=== PATIENT | female | born 1960 | race Caucasian/White ===

== ENCOUNTER 2018-10-27 22:32 | Inpatient (IN) ==
[2018-10-28] MEDS ORDERED: NS 1,000 ML IV ONE ×2 (00:12→01:54)
[2018-10-28 01:27] LABS: BASO# 0.03 X1000 (0.0-0.2); BASO% 0.2 % (0.0-0.8); EOS# 0.18 X1000 (0.0-0.7); EOS% 1.2 % (0.0-10.0); HEMATOCRIT 41.5 % (37.0-47.0); HEMOGLOBIN 12.9 g/dL (12.0-16.0); LYMPH# 2.53 X1000 (1.2-3.4); LYMPH% 16.8 % (20.5-51.1); MCH 29.5 PG (27-31); MCHC 31.1 g/dL (33-37); MPV 11.2 FL (7.4-10.4); NEUT# 11.11 X1000 (1.4-6.5); NEUT% 73.8 % (42.2-75.2); PLT 305 X1000 (130-400); RBC 4.37 XMIL (4.2-5.4); RDW 14.7 % (11.5-14.5); WBC 15.05 X1000 (4.8-10.8)
[2018-10-28 01:32] LABS: ALB/GLOB RATIO 0.7; ALBUMIN 3.4 g/dL (3.5-5.0); CALCIUM 9.2 mg/dL (8.8-10.2); CREATININE 1.7 mg/dL (0.5-0.9); POTASSIUM 4.7 mmol/L (3.5-5.1); TOTAL BILIRUBIN 0.47 mg/dL (0.20-1.00); TOTAL PROTEIN 8.3 g/dL (6.3-8.3)
[2018-10-28 02:47] LABS: BILIRUBIN URINE SMALL (NEGATIVE); BLOOD URINE LARGE (NEGATIVE); CLARITY CLOUDY (CLEAR); COLOR YELLOW; GLUCOSE URINE NEGATIVE (NEGATIVE); KETONE URINE TRACE mg/dL (NEGATIVE); LEUKOCYTES URINE MODERATE (NEGATIVE); NITRITE URINE NEGATIVE (NEGATIVE); PH URINE 5.5; PROTEIN URINE 100 mg/dL (NEGATIVE); SP GRAVITY URINE >= 1.030; URINE SOURCE CATH; UROBILINOGEN URINE 0.2 EU/dL (0.2-1.0)
[2018-10-28] MEDS ORDERED: VANCOMYCIN 1 GM/NS 1 GM/250 ML IVPB IV ONE (02:59)
[2018-10-28] MEDS ORDERED: ROCEPHIN 1 GM in NS 50 ML IV ONE (02:59)
[2018-10-28] MEDS ORDERED: LEVOPHED 8 MG in D5 1/2 NS 250 ML IV SCH (03:00)
[2018-10-28 03:30] LABS: URINE BACTERIA 2+ /HFP; URINE EPITHELIAL CELLS <10 /HPF (<10); URINE RBC 20-40 /HPF (<10); URINE WBC TNTC /HPF (<10); URINE YEAST PRESENT /HPF
[2018-10-28 03:31] LABS: URINE CAST NONE SEEN /LPF; URINE CRYSTAL NONE SEEN /HPF
[2018-10-28] MEDS: EPINEPHRINE 4 MG in NS 250 ML IV SCH ×4 (04:59→16:24)
[2018-10-28] MEDS ORDERED: ATIVAN IV ONE ×3 (05:14→10:00)
[2018-10-28] MEDS ORDERED: KEPPRA 500 MG in NS 100 ML IV SCH (06:00)
--- NOTE | 2018-10-28 07:08 | PROVIDER DOCUMENTATION ---
This chart was entered by Brittany Downing Scribe, acting as scribe for Shaquille Harris MD. HPI-Neurological Disorder - General Chief Complaint: Extremity Pain Stated Complaint: ams Time Seen by Provider: 10/27/18 23:09 Source: patient Allergies/Adverse Reactions: Patient Allergies Allergy/AdvReac Type Severity Reaction Status Date / Time Penicillins Allergy Intermediate HIVES Verified 10/27/18 23:09 codeine [Codeine] Allergy Unknown Unknown Verified 10/27/18 23:09 tetracycline [Tetracycline] Allergy Unknown Unknown Verified 10/27/18 23:09 latex Allergy ITCHING Verified 10/27/18 23:09 meperidine HCl * Allergy ITCHING Verified 10/27/18 23:09 [From Demerol] Home Medications: Home Medication List Medication Instructions Recorded Confirmed Last Taken Type Baclofen 20 mg PO 4XDAY 09/12/12 08/30/18 04/21/15 18:00 History 20 MG Esomeprazole [Nexium] 40 mg PO DAILY 09/12/12 08/30/18 04/21/15 06:00 History 40 MG Metformin [Glucophage] 500 mg PO BID 09/12/12 08/30/18 04/21/15 09:00 History 500 MG Oxybutynin Chloride [Ditropan Xl] 15 mg PO BID 09/12/12 08/30/18 04/21/15 08:00 History 15 MG Levetiracetam [Keppra] 500 mg PO BID 09/17/14 08/30/18 04/21/15 10:00 History 500 MG Glimepiride [Amaryl] 2 mg PO BID 10/09/14 08/30/18 04/21/15 10:00 History 2 MG Metoprolol Succinate E.r. [Toprol 50 mg PO DAILY 10/09/14 08/30/18 04/21/15 09: 00 History Xl] 50 MG Losartan [Cozaar] 25 mg PO DAILY 04/22/15 08/30/18 04/21/15 09:00 History 50 MG Furosemide [Lasix] 40 mg PO DAILY 08/30/18 08/30/18 Unknown History Ropinirole [Requip] 0.5 mg PO TID 08/30/18 08/30/18 Unknown History - History of Present Illness-Neuro Nature of Presenting Problem: 57yof with hx MS, diabetes, HTN presents via EMS with AMS and infection of RLE since this evening. The patient's mother acts as historian. She denies that the patient has any PCP. She denies fever, chills, n, v, d, cp, and sob. Severity: reports: mild Onset/Duration: reports: this evening Timing: reports: still present Context: reports: recent infection (RLE) Character of Altered Mental Status: reports: combative, other (somnolent) Associated Symptoms: denies: short of breath, fatigue, nausea, vomiting Similar Symptoms Previously?: No Recently seen or treated by another doctor?: No Review of Systems - Adult - REVIEW OF SYSTEMS - ADULT Constitutional: denies: chills, fever Eyes: denies: discharge, dry eyes Ears, Nose, Mouth & Throat: denies: ear discharge, ear pain Cardiovascular: denies: chest pain, palpitations Respiratory: denies: cough, shortness of breath Gastrointestinal: denies: abdominal pain, diarrhea, nausea, vomiting Genitourinary: denies: dysuria, hematuria Musculoskeletal: denies: back pain, muscle aches, muscle weakness Integumentary: reports: other (RLE infection). denies: itching Neurological: reports: other (AMS). denies: dizziness/vertigo, headache/ migraines Psychiatric: reports: no symptoms reported Endocrine: reports: no symptoms reported Hematologic/Lymphatic: reports: no symptoms reported Allergic/Immunologic: reports: no symptoms reported All Other Systems: Reviewed and Negative Past History - Adult - PAST MEDICAL HISTORY-ADULT Review of Records: reports: Old Records Reviewed, Nursing Assessment Review, Medications Reviewed Major Childhood Illnesses: reports: denies history Cardiovascular: reports: HTN Respiratory: reports: denies history Gastrointestinal: reports: GERD Obstetrical/Gynecological: reports: denies history Genitourinary: reports: denies history Musculoskeletal: reports: denies history Neurological: reports: Multiple Sclerosis (paraplegic with contractures) Endocrine/Immune: reports: Diabetes Other Conditions: reports: denies history - PRIOR SURGERIES/PROCEDURES Surgical/Procedure History: reports: cholecystectomy, hysterectomy, indwelling device (supapubic cath), tonsillectomy, orthopedic (extremity) (leg straightening due to chronic contractures secondary to MS) - IMMUNIZATION STATUS Childhood Immunizations: See Nurse Assessment Flu Vaccine: See Nurse Assessment - FAMILY HISTORY Family History: reviewed, not pertinent - SOCIAL HISTORY Smoking: non-smoker Substance Use: denies Living Situation: family Physical Exam- Neurological - Physical Exam-Neuro Initial Vital Signs Reviewed: Yes General Appearance: other (somnolent, pt is non-verbal during exam) Eye Exam: bilateral eye: PERRL Head Injury: no evidence of injury. negative: active bleeding, Wu's Sign, ecchymosis, swelling Neck: non-tender, supple Respiratory: lungs clear, normal breath sounds Cardiovascular: regular rate, rhythm, no murmur Abdominal Exam: non tender, soft Extremity: other (R heel: two ulcers, 3cm and .6cm, erythema, warm. R calf: cellulitis, erythema, warm LLE: cool to touch) Neurologic: other (pt is non-verbal) Integumentary: normal color, warm/dry Psych/Mental Status: other (pt is nonverbal) Progress - PLAN OF CARE/RESULTS Progress/Plan/Lab Results: Vital Signs - 8 hr 10/27/18 23:34 10/28/18 01:41 10/28/18 05:25 Pulse Rate 96 H 103 H Respiratory Rate 20 Blood Pressure 56/31 105/65 89/67 O2 Sat by Pulse Oximetry 91 L Laboratory Results - last 24 hr 10/28/18 10/28/18 10/28/18 00:15 00:31 00:31 WBC RBC Hgb Hct MCV MCH MCHC RDW Std Deviation Plt Count MPV Neut % (Auto) Lymph % (Auto) [place] % (Auto) Eos % (Auto) Baso % (Auto) Neut # (Auto) Lymph # (Auto) [place] # (Auto) Eos # (Auto) Baso # (Auto) Sodium 138 Potassium 4.7 Chloride 95 L Carbon Dioxide 24 L Anion Gap 19 BUN 49 H Creatinine 1.7 H Estimated GFR/1.73 m2 31 BUN/Creatinine Ratio 29 Glucose 214 H POC Glucose 213 H Calculated Osmolality 295 Calcium 9.2 Magnesium 1.8 Total Bilirubin 0.47 AST 24 ALT 23 Alkaline Phosphatase 194 H Troponin T Total Protein 8.3 Albumin 3.4 L Globulin 4.9 Albumin/Globulin Ratio 0.7 Plasma Lactate Urine Source Urine Color Urine Clarity Urine Turbidity Urine pH Ur Specific [place] Urine Protein Ur Glucose (Stick) Urine Ketones Ur Ketones (Stick) Urine Blood Urine Nitrite Urine Bilirubin Urine Urobilinogen Urobilinogen Dipstick Urine Leukocytes Urine WBC (Auto) Urine RBC (Auto) U Epithel Cells (Auto) Urine Bacteria (Auto) Urine Microscopic RBC Urine WBC Urine Microscopic WBC Ur Epithelial Cells Urine Crystals Urine Bacteria Urine Casts Urine Yeast Urine Glucose 10/28/18 10/28/18 10/28/18 00:31 00:31 00:45 WBC 15.05 H RBC 4.37 Hgb 12.9 Hct 41.5 MCV 95.0 MCH 29.5 MCHC 31.1 L RDW Std Deviation 14.7 H Plt Count 305 MPV 11.2 H Neut % (Auto) 73.8 Lymph % (Auto) 16.8 L [place] % (Auto) 8.0 Eos % (Auto) 1.2 Baso % (Auto) 0.2 Neut # (Auto) 11.11 H Lymph # (Auto) 2.53 [place] # (Auto) 1.20 H Eos # (Auto) 0.18 Baso # (Auto) 0.03 Sodium Potassium Chloride Carbon Dioxide Anion Gap BUN Creatinine Estimated GFR/1.73 m2 BUN/Creatinine Ratio Glucose POC Glucose Calculated Osmolality Calcium Magnesium Total Bilirubin AST ALT Alkaline Phosphatase Troponin T Total Protein Albumin Globulin Albumin/Globulin Ratio Plasma Lactate Urine Source Cancelled CATH Urine Color Cancelled YELLOW Urine Clarity CLOUDY A Urine Turbidity Cancelled Urine pH Cancelled 5.5 Ur Specific [place] Cancelled >= 1.030 Urine Protein Cancelled 100 A Ur Glucose (Stick) Cancelled Urine Ketones TRACE A Ur Ketones (Stick) Cancelled Urine Blood Cancelled LARGE A Urine Nitrite Cancelled NEGATIVE Urine Bilirubin Cancelled SMALL A Urine Urobilinogen 0.2 Urobilinogen Dipstick Cancelled Urine Leukocytes Cancelled Urine WBC (Auto) Cancelled Urine RBC (Auto) Cancelled U Epithel Cells (Auto) Cancelled Urine Bacteria (Auto) Cancelled Urine Microscopic RBC 20-40 A Urine WBC MODERATE A Urine Microscopic WBC TNTC A Ur Epithelial Cells <10 Urine Crystals NONE SEEN Urine Bacteria 2+ Urine Casts NONE SEEN Urine Yeast PRESENT Urine Glucose NEGATIVE 10/28/18 10/28/18 00:45 02:53 WBC RBC Hgb Hct MCV MCH MCHC RDW Std Deviation Plt Count MPV Neut % (Auto) Lymph % (Auto) [place] % (Auto) Eos % (Auto) Baso % (Auto) Neut # (Auto) Lymph # (Auto) [place] # (Auto) Eos # (Auto) Baso # (Auto) Sodium Potassium Chloride Carbon Dioxide Anion Gap BUN Creatinine Estimated GFR/1.73 m2 BUN/Creatinine Ratio Glucose POC Glucose Calculated Osmolality Calcium Magnesium Total Bilirubin AST ALT Alkaline Phosphatase Troponin T 0.033 Total Protein Albumin Globulin Albumin/Globulin Ratio Plasma Lactate 1.4 Urine Source Urine Color Urine Clarity Urine Turbidity Urine pH Ur Specific [place] Urine Protein Ur Glucose (Stick) Urine Ketones Ur Ketones (Stick) Urine Blood Urine Nitrite Urine Bilirubin Urine Urobilinogen Urobilinogen Dipstick Urine Leukocytes Urine WBC (Auto) Urine RBC (Auto) U Epithel Cells (Auto) Urine Bacteria (Auto) Urine Microscopic RBC Urine WBC Urine Microscopic WBC Ur Epithelial Cells Urine Crystals Urine Bacteria Urine Casts Urine Yeast Urine Glucose Orders Category Date Time Status Hagen Cath Insertion ORDERED Care 10/28/18 00:20 Active Restraint Initiate NonViolent ONCE Care 10/28/18 00:14 Active Restraint Initiate NonViolent ONCE Care 10/28/18 05:15 Active Saline Loc NOW Care 10/28/18 00:14 Active Saline Loc NOW Care 10/28/18 00:16 Active CHEST-PORTABLE [RAD] Stat Exams 10/28/18 00:19 Taken BLOOD CULTURE [BLDCUL] Stat Lab 10/28/18 03:00 Results CBC WITH ELECTRONIC DIFF [HEME] Stat Lab 10/28/18 00:45 Completed COMPREHENSIVE METABOLIC PANEL [CHEM] Stat Lab 10/28/18 00:31 Completed LACTATE, PLASMA [CHEM] Stat Lab 10/28/18 02:53 Completed MAGNESIUM [CHEM] Stat Lab 10/28/18 00:31 Completed TROPONIN T Stat Lab 10/28/18 00:45 Completed URINE CULTURE [RM] Routine Lab 10/28/18 03:02 Received 0.9% Sodium Chloride Inj [Ns] 1,000 ml Med 10/28/18 00:12 Discontinued IV 999 mls/hr 0.9% Sodium Chloride Inj [Ns] 1,000 ml Med 10/28/18 01:54 Discontinued IV 999 mls/hr 0.9% Sodium Chloride Inj [Ns] 250 ml Med 10/28/18 05:00 Active Epinephrine 4 mg IV As Directed CefTRIAXONE [Rocephin] 1 gm Med 10/28/18 02:59 Discontinued 0.9% Sodium Chloride Inj [Ns] 50 ml IV NOW Dextrose 5%-0.45% NaCl Inj [D5 1/2 Ns] 250 ml Med 10/28/18 03:00 Active Norepinephrine [Levophed] 8 mg IV As Directed Levetiracetam [Keppra] 500 mg Med 10/28/18 06:00 Active 0.9% Sodium Chloride Inj [Ns] 100 ml IV Q12H Lorazepam [Ativan] Med 10/28/18 05:14 Discontinued 0.5 mg IV NOW ONE Lorazepam [Ativan] Med 10/28/18 05:31 Discontinued 0.5 mg IV NOW ONE Vancomycin 1 gm/Ns Med 10/28/18 02:59 Discontinued 1 gm in 250 ml IV NOW Transfer/Admit Order [TRANSFER] Routine Transfer 10/28/18 04:38 Ordered Result Diagrams: 10/28/18 00:45 10/28/18 00:31 - REASSESSMENT Reassessment #1 Time Reassessed: 04:42 Status: other (2 LITERS IVF IN AND NOREPI GTT STARTED 04;12 BP IPMPROVED BUT SINUS EM DOWN TO 32/MIN, NOREPI STOPPED AND HR BACK TO 60/MIN) Reassessment #2 Time Reassessed: 04:46 Status: unchanged (RES;PONSIVE TO PAIN, NEDS HEAD CT BUT NOT YET HEMODYN STABLE ENOUGH TO SEND TO CT) - XRAY 1 XRAY Study: Chest Impression: Normal (NAD) - CONSULTS/PCP/HOSPITALIST Notification #1 *Consult/PCP/Hospitalist*: DR MOTA Time Discussed: 04:40 Reason/Comments: ICU, SEPSIS Consult Disposition: Admit Departure - Departure Date of Disposition Decision: 10/28/18 Time of Disposition Decision: 05:23 DIAGNOSIS: Sepsis, Altered mental status, Hypotension, Urinary tract infection, Leukocytosis, Cellulitis and abscess of foot excluding toe Disposition: ADMITTED INPATIENT 09 Certified Medical Emergency: Emergent Condition: Stable - Critical Care Note This patient required my direct & personal management of CC.: Yes Total Time (mins): 85 Critical Care Statement: This patient required my direct personal management to treat or rule out processes, the absence of which, could potentiallly result in sudden, clinically significant life or limb threatening deterioration. Attestation - Physician/ JOCE Attestation Patient care was provided by Advanced Practice Provider:: No The physician spent face to face time with patient:: Yes Advanced Practice Provider documentation review:: Supervising physician onsite and consulted in the evaluation and care of this patient. The physician did have a face to face encounter with the patient. - NIH Stroke Scale Level of Consciousness: 2-Stuporous, requires repeat stimulation to attend LOC Questions (ask month and age): 2-Both Incorrect LOC Commands (ask to open & close eyes;make a fist, let go): 2-Both Incorrect ( JSUT TOO DISORIENTED AND LETHARGIC TO COMMUNICATE OR OBEY TEST COMMANDS, ALSO , CHRONIC WEAKNESS LEGS DUE MS) Motor Function-left arm: 0-Normal Motor Function-right arm: 0-Normal Motor Function-left le-No Effort Against [place] Motor Function-right le-No Effort Against [place] Limb Ataxia([id number], or heel to alvarado): 2-Present in two limbs Modified Waller Score Criteria: 4-moderately severe disability This chart was documented by the indicated scribe, (Brittany Downing, Scribe) and accurately reflects the services I performed and decisions made by me, Shaquille Harris MD, as attested by the provider's signature.
--- NOTE | 2018-10-28 07:11 | HISTORY AND PHYSICAL ---
PRIMARY CARE PHYSICIAN: None. REASON FOR ADMISSION: Confusion and subsequent unconsciousness. HISTORY: Ms. Arianna Brown is a 57-year-old woman who was discharged from our facility about a month ago for Escherichia coli sepsis from a UTI. She also has a history of multiple visits with paralysis as well as contractures of the lower extremities, seizure disorder, multiple decubitus on her lower extremities, hypertension, type 2 diabetes. The patient has been bedbound for the last two years and is cared for by her mother and home health. The mother reports that yesterday morning the patient was doing fine. Ate her breakfast. But she noticed over the course of the day she became very confused, making a lot of incoherent statements. The patient became less and less responsive and was drifting in-and-out of consciousness. At that juncture, she decided to bring her daughter because she was concerned she may be infected. REVIEW OF SYSTEMS: I am unable to get a history from the patient, even though I had to awaken with sternal rub. She does not recognize her mother. She is unable to answer any questions, even from her mother. Otherwise review of systems is very limited. The mother denies any cough, shortness of breath, fever, chills, or complaints of abdominal pain or pain from the patient. She does have a history of chronic lower extremity pain according to the mother. ALLERGIES: Penicillin, codeine, tetracycline, latex and Demerol. HOME MEDICATIONS: Yet to be reconciled, but on her list we have: 1. Baclofen. 2. Nexium. 3. Lasix. 4. Amaryl. 5. Keppra. 6. Losartan. 7. Metformin. 8. Toprol. 9. Oxybutynin. 10.Requip. PAST SURGICAL HISTORY: Cholecystectomy, hysterectomy, tonsillectomy and placement of a suprapubic catheter. FAMILY HISTORY: Dad had diabetes and heart disease. SOCIAL HISTORY: Lives with her mother. She is bedbound. She does not smoke, drink, or use illicit drugs. Mother says she is having a hard time caring for her too. LAB WORK: White count 15.0, hemoglobin and hematocrit are 13 and 41, platelets 305,000 with 73% neutrophils. BUN 49, creatinine 1.7 (up from 0.5), glucose 214. Alkaline phosphatase 194. Urine drug screen shows specific gravity of 1.030, cloudy urine, large blood too numerous to count WBC, 2+ bacteria. IMAGING: Chest film is devoid of any infiltrate, increased pulmonary edema. Borderline cardiac silhouette. EXAMINATION: VITAL SIGNS: Blood pressure is 89/67, heart rate 102, respirations 20, temperature 97.0 degrees Fahrenheit. She is 91% on room air. GENERAL: She is an unfortunate overweight, middle-age woman who is now awake but agitated, requiring some restraints because she was about to pull out her IV. She is moaning and intermittently screaming. Earlier when her name was called, she would turn her head in that direction. Now she is not even following commands. HEENT: Head is normocephalic and atraumatic. Eyes: PERRL. EOMI. Sclerae anicteric and pale. ENT: Limited. She has noticeable moderate xerostomias of sinuses. NECK: Short and thick. No JVD visualized. No thyromegaly noted. CHEST: Decreased function of both lung valerio. CARDIOVASCULAR: S1, S2. No gallop or rub. It is regular. ABDOMEN: Protuberant but soft with no mass or hepatosplenomegaly appreciated. Bowel sounds are hyperactive. There is a suprapubic catheter in place. No surrounding erythema or exudates emitting from the ostomy site. RECTAL: Deferred. EXTREMITIES: The patient has contractions of both her knees. She also has some [id number] erythema on the plantar surface and heel of her right foot. Stage II decubitus of her heel. The heel does not appear to be warmer than surrounding tissue. No crepitations or induration of the texture of her skin. Pulses distally in her lower extremities are significantly diminished bilaterally. In her upper extremities, the volume is significantly diminished, rapid rate. NEUROLOGIC: The patient does not follow commands, but she is moving her upper extremities with no gross evidence of focal deficit. SKIN: Intact but also abnormal findings are noted as above. MUSCULOSKELETAL: The patient has hypertonicity of her lower extremities. IMPRESSION: 1. Urinary tract infection. 2. Septic shock. 3. Encephalopathy secondary to acute kidney injury and underlying urinary tract infection. 4. Acute kidney injury. 5. Type 2 diabetes. 6. Hypertension. 7. Multiple sclerosis. 8. Epilepsy. 9. Stage II right heel ulcers with possible early cellulitis. PLAN: 1. The patient will be admitted and treated appropriately with 30 mL/kg IV fluid resuscitation. This will be continued when she is transferred to the ICU. 2. The patient's lactic acid was 1.4, however clinically this patient is in shock regardless. 3. We will start the patient on Maxipime to cover for broader coverage of Gram-negative i.e., pseudomonas. 4. Vancomycin was also started for presumptive cellulitis of the right foot. 5. The patient will have BMP monitored closely on a daily basis with IV fluid resuscitation for correction of this. 6. She will be aggressively managed with sliding-scale insulin. 7. Await final medication reconciliation sheet before proceeding. 8. The patient may require p.r.n. Ativan for agitation and also to raise the patient's seizure threshold. Start IV Keppra so as to avoid any unexpected seizure. 9. The patient is also currently on epinephrine to maintain blood pressure. Oddly enough, I was informed that when she was started on Levophed she became bradycardic which I have never heard of before but the nurse attest to this. The patient is still hypotensive, which at this point in time she is in, recommend a random cortisol level to rule out renal insufficiency. Infectious Diseases will be consulted and Wound Care also needs to be consulted regarding Stage II decubitus. cc: Garry Patel MD
[2018-10-28] MEDS ORDERED: ZOFRAN IV PRN (07:25)
[2018-10-28] MEDS ORDERED: VANCOMYCIN IV PER PHARMACY MISC SCH (07:25)
--- NOTE | 2018-10-28 07:29 | Diag Imaging Result Doc PS360 ---
EXAM: CHEST-PORTABLE 10/28/2018 HISTORY: septic? TECHNIQUE: AP portable at 0042 COMMENT: There is suboptimal inspiration with elevation of the right hemidiaphragm. This has not changed since 09/02/2018. There is otherwise no significant change. IMPRESSION: Stable chest. Electronically signed by Elia Mills 10/28/2018 7:27 AM
[2018-10-28] MEDS ORDERED: VANCOMYCIN 1,500 MG in NS 250 ML IV ONE (09:00)
--- NOTE | 2018-10-28 09:06 | EKG Report ---
Test Performed on : 10/28/2018 04:18:42 AM Test Reason : NO EKG ORDER FOR MUSE Blood Pressure : / mmHG Vent. Rate : 074 BPM Atrial Rate : 074 BPM P-R Int : 194 ms QRS Dur : 072 ms QT Int : 428 ms P-R-T Axes : 063 004 024 degrees QTc Int : 475 ms Normal sinus rhythm. Nonspecific T wave abnormality Prolonged QT Abnormal ECG When compared with ECG of 30-AUG-2018 06:39, T wave inversion no longer evident in Inferior leads Nonspecific T wave abnormality no longer evident in Anterior leads Nonspecific T wave abnormality, worse in Lateral leads Unconfirmed Result
[2018-10-28] MEDS: HEPARIN SUBQ SCH ×2 (09:10→21:11)
[2018-10-28] MEDS: NS 1,000 ML IV SCH ×4 (09:10→23:13)
[2018-10-28] MEDS: MAXIPIME 1 GM in NS 50 ML IV SCH ×2 (09:11→21:11)
[2018-10-28] MEDS ORDERED: ATIVAN ONE (10:08)
[2018-10-28] MEDS: HUMALOG SUBQ SCH ×4 (10:27→21:11)
[2018-10-28] MEDS: CUBICIN 350 MG in NS 100 ML IV SCH (10:30)
--- NOTE | 2018-10-28 10:55 | INFECTIOUS DISEASE CONSULT REP ---
DATE: 10/28/2018 CONCLUSION: The patient is admitted to the hospital in a septic condition. I think this could arise from a urinary tract infection or possibly from one of the patient's wounds on her legs. The chest x-ray does not show any infiltrates so I think pneumonia would be very unlikely. The patient also has an ischemic left leg. RECOMMENDATIONS: I agree with treating the patient with cefepime. I have discontinued vancomycin and I have placed the patient on daptomycin. I have asked Dr. Santos of surgery to put in an IV catheter and also, I have consulted him on the patient's ischemic left leg. DISCUSSION: The patient is unable to provide a history. No family member is present. According to the data in the computer, the patient was admitted to the hospital with confusion and subsequent unconsciousness. The patient was recently in [facility] for E. coli sepsis and a urinary tract infection. The patient has a history of paralysis as well as contractures of the lower extremities. She also has a seizure disorder, multiple decubitus ulcers on her legs, hypertension, and type 2 diabetes. She has been bedbound for the past 2 years and cared for by her mother at home. The patient's laboratory studies show a CBC with a white count of 15,050, hemoglobin 12.9, platelet count 305,000. Creatinine is 1.7. GFR is 31. Liver function studies are normal except for an alkaline phosphatase of 194. Urinalysis shows white cells and bacteria. Blood and urine cultures are pending. Chest x-ray showed an elevated right hemidiaphragm which has been present for quite awhile. PAST MEDICAL HISTORY AND REVIEW OF SYSTEMS: Review of systems unable to be obtained. Past medical history is positive for leg paralysis and contractures, seizure disorder, multiple decubitus ulcers in her lower extremities, hypertension, and type 2 diabetes. PAST SURGICAL HISTORY: The patient's surgical history is positive for his a cholecystectomy, hysterectomy, tonsillectomy, and placement of a suprapubic catheter. FAMILY HISTORY: Positive for diabetes and heart disease. SOCIAL HISTORY: The patient lives with her mother. The patient is bedbound. She does not smoke, drink alcoholic beverages, or use illicit drugs. LABORATORY AND X-RAY: Lab work and radiographic studies have been reviewed as above. ALLERGIES: The patient's drug allergies include penicillins, codeine, tetracyclines, latex, meperidine. HOME MEDICATIONS: Include the following: Baclofen, Nexium, Lasix, Amaryl, Keppra, Cozaar, Glucophage, Toprol, Ditropan, and Requip. PHYSICAL EXAMINATION: Vital Signs: Temperature is 98 degrees, pulse 86, respirations 9, blood pressure 103/60. General: This is an ill-appearing, middle-aged female. She is obtunded. Head, Eyes, Ears, Nose, and Throat: No drainage was noted from the nose or ears. Neck: No stiffness. Lungs: Clear to auscultation. Cardiovascular: Heart rate is regular. Abdomen: Soft and nontender. Pelvic Examination: In the suprapubic area, there is a suprapubic catheter. There is a sanguinopurulent drainage coming from the catheter site. Extremities: The patient has multiple decubitus ulcers on both extremities. There is some sanguinopurulent drainage from those wounds as well. The patient's left leg is cool and ischemic. Neurologic: The patient's eyes are closed. She did not respond to verbal stimuli. There was no tremor. Thank you for the consult. cc: Kyaw Bernabe MD
[2018-10-28] MEDS ORDERED: NS 250 ML ONE (11:14)
--- NOTE | 2018-10-28 11:19 | GENERAL SURGERY CONSULTATION ---
DATE: 10/28/2018 REQUESTING PHYSICIAN: Dr. Kyaw Bernabe. REASON FOR CONSULTATION: Consult is concerning central line access and ischemic left foot. HISTORY OF PRESENT ILLNESS: A 57-year-old female who was discharged a month ago from the facility with a urinary tract infection. 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 She has been bedbound for 2 years. The patient became more confused and unconscious, and subsequently was admitted. She was admitted and started on broad-spectrum antibiotics for the diagnosis of potential for sepsis, and them having a difficult time with patient being confused and agitated, and getting IV access. They asked me to evaluate for ischemic foot and IV access. It should be noted that the patient is on vasopressors with Levophed. PAST MEDICAL HISTORY: Paralysis, contractures, seizure disorder, multiple decubitus ulcers, hypertension, type 2 diabetes. PAST SURGICAL HISTORY: Includes cholecystectomy, hysterectomy, tonsillectomy, suprapubic catheter. HOME MEDICATIONS: Reviewed. ALLERGIES: Penicillin, codeine, tetracycline, latex, and Demerol. FAMILY HISTORY: Positive for diabetes and heart disease. SOCIAL HISTORY: Lives with mother and is bedbound. REVIEW OF SYSTEMS: Unable to obtain secondary to patient's mental status. SOCIAL HISTORY: As stated above. PHYSICAL EXAMINATION: Vital Signs: The patient's current temperature, she is afebrile. Pulse is 86, blood pressure 103/60. She is on pressors. General Examination: Agitated female. Looks stated age. HEENT: Normocephalic, atraumatic. Pupils equal, round, and reactive to light. Mucous membranes moist. Oropharynx benign. Neck: Supple. Trachea midline. Cardiovascular: Regular rate and rhythm. Lungs: Grossly clear. Abdomen: Soft, nontender, nondistended. Extremities: Left foot smaller than the right. There appears to be some ischemia noted to the distal aspect of her toes. She has multiple ulcers over both legs but more prominently the ulcers on the right leg and right foot. Neurologic: Confused and agitated. I can see her move all extremities. I do not see her move her feet that much. Vascular: Palpable femoral pulse on the right. I cannot palpate a femoral pulse on the left but she has a strong signal in her femoral pulse on the left and at her dorsalis pedis. Skin: As noted above. Neurologic: As stated. LABORATORY: White blood cell count is 15, hematocrit 41, platelet count 305,000. Remainder of labs reviewed. ASSESSMENT AND PLAN: A 57-year-old with ischemic left leg and difficult intravenous access. 1. Ischemic leg left leg. At this time, she does have a signal in her dorsalis pedis that is likely small-vessel disease. At this point, she is on pressors to maintain her blood pressure for likely sepsis, so I would agree with continuing resuscitation as possible. We will have to evaluate how her leg declares itself over the next couple of days. We will need to monitor her closely. 2. Intravenous access. At this time, attempted central line on the patient but she was so agitated that I could not get the wire through it. Given the fact that she is very agitated, we will recommend a peripherally inserted central catheter line placement. We will consult the peripherally inserted central catheter line team and go from there. cc: Anup Santos MD
[2018-10-28 11:20] LABS: INR 1.1; PROTIME 15.1 Seconds (11.0-16.0)
--- NOTE | 2018-10-28 11:38 | Diag Imaging Result Doc PS360 ---
EXAM: CHEST-PORTABLE 10/28/2018 HISTORY: attempted Right IJ central line placement TECHNIQUE: AP portable at 1056 COMMENT: There is no evidence of pneumothorax or pleural fluid collection. The inspiration is less optimal than on 10/28/2018 at 0042. There is some platelike atelectasis in the left base which was not previously present. IMPRESSION: Left lower lobe atelectasis. Electronically signed by Elia Mills 10/28/2018 11:36 AM
[2018-10-29] MEDS: EPINEPHRINE 4 MG in NS 250 ML IV SCH (05:30)
[2018-10-29] MEDS: NS 1,000 ML IV SCH ×4 (05:32→22:24)
[2018-10-29] MEDS ORDERED: ATIVAN IV ONE (05:36)
--- NOTE | 2018-10-29 06:32 | GENERAL SURGERY PROGRESS NOTE ---
DATE: 10/29/2018 SUBJECTIVE: Patient agitated through the night per the nurses notes. Ativan was given. The patient's epinephrine has been decreased. OBJECTIVE: Vital Signs: Patient is currently afebrile. Heart rates in the 120s, blood pressure 100 systolic. She is currently on epinephrine. O2 saturation 99%. General exam: Agitated female, does not follow commands. HEENT: Normocephalic, atraumatic. Pupils equal, round, reactive to light. Mucous membranes moist. Oropharynx benign. Neck: Supple, trachea midline. Cardiovascular: Some tachycardia. Lungs: Coarse sounds noted. Abdomen: Soft, nontender, nondistended. Extremities: Essentially unchanged with cyanosis noted to the left foot. Vascular still with perfusion noted to the left foot. Neurologic: Obtunded and agitated. LABORATORY: Currently pending. ASSESSMENT AND PLAN: A 57-year-old with possible ischemic left leg. 1. Ischemic left leg. At this time, we will continue to monitor. She seems to have perfusion to her dorsalis pedis to the foot and likely has small vessel disease which might be related to the vasopressors required to keep her blood pressure where it is. At this point, continue to monitor and see how she does. Nothing new to add. We will continue to follow her. cc: Anup Santos MD
[2018-10-29] MEDS: HUMALOG SUBQ SCH ×4 (07:18→20:17)
[2018-10-29] MEDS: MAXIPIME 1 GM in NS 50 ML IV SCH ×2 (07:38→20:08)
[2018-10-29] MEDS: HEPARIN SUBQ SCH ×2 (07:38→20:08)
--- NOTE | 2018-10-29 09:35 | INFECTIOUS DISEASE PROGRESS NO ---
DATE: 10/29/2018 PRESENT ILLNESS: The patient has multiple wounds on her legs which are infected. The wounds are growing gram-positive cocci. The patient also has a fungal urinary tract infection. Her chest x- ray shows atelectasis and not infiltrate and I think pneumonia is very unlikely. The patient's left leg also has ischemia of the foot. MEDICATIONS: The patient is receiving a combination of daptomycin and cefepime. PHYSICAL EXAMINATION: Vital Signs: Temperature is 97.2 degrees, pulse 120, respirations 20, blood pressure 141/73. General: This is an obese, middle-aged female. She appears delirious. Head/eyes/ears/nose/throat: Does not have any drainage from the nose or ears. I got a slight look at her mouth. I did not see any white patches on her tongue. Neck: No stiffness. Lungs: Clear to auscultation. Cardiovascular: Heart rate is regular. Abdomen: Soft and nontender. Extremities: Both legs are edematous and have erythematous ulcerating lesions distally. Neurologic: The patient does move around in bed. She does not answer questions. She does not follow request to move her extremities. LABORATORY AND X-RAY: Chest x-ray shows left lower lobe atelectasis. CBC has a white count of 15,050, hemoglobin 12.9, and platelet count 305,000. Creatinine is 1.7. GFR is 31. The patient's leg wounds are growing gram-positive cocci. The urine is urine is growing yeast. Blood cultures are pending. Chest x-ray shows left lower lobe atelectasis. Alkaline phosphatase is 194. ASSESSMENT AND PLAN: 1. The patient has infected wounds on her legs. She does have funguria, but I doubt that this is the cause of her septic condition. She does not have pneumonia. She does have funguria, but I doubt that the funguria is causing her septic-like condition. Chest x-ray shows left lower lobe atelectasis, which would make pneumonia very unlikely. 2. Comorbidities: She has a seizure disorder. She has upper leg paralysis and contractures. She also has diabetes. cc: Kyaw Bernabe MD
[2018-10-29 09:42] LABS: BASO# 0.02 X1000 (0.0-0.2); BASO% 0.1 % (0.0-0.8); EOS% 0.7 % (0.0-10.0); HEMATOCRIT 38.4 % (37.0-47.0); HEMOGLOBIN 11.7 g/dL (12.0-16.0); IMM GRAN# 0.05 X1000 (0.0-0.04); IMM GRAN% 0.4 % (0.0-0.5); LYMPH# 1.83 X1000 (1.2-3.4); LYMPH% 13.3 % (20.5-51.1); MCH 29.2 PG (27-31); MCHC 30.5 g/dL (33-37); MCV 95.8 FL (81-99); MONO# 0.97 X1000 (0.11-0.59); MPV 10.5 FL (7.4-10.4); NEUT% 78.5 % (42.2-75.2); PLT 295 X1000 (130-400); RBC 4.01 XMIL (4.2-5.4); RDW 14.5 % (11.5-14.5); WBC 13.77 X1000 (4.8-10.8)
--- NOTE | 2018-10-29 10:07 | PROGRESS NOTE ---
DATE: 10/29/2018 SUBJECTIVE: Ms. Brown was admitted yesterday; she has no primary care physician. This 57 year old was discharged from our facility about a month ago with E coli sepsis and UTI. She has a history of multiple visits with paralysis, as well as contractures, lower extremity seizure disorder, multiple decubitus in her lower extremities, hypertension, diabetes mellitus type 2. She has been bed-bound for 2 years and cared for by her mother and home health. The mother reports that the day before she was doing fine. She ate her breakfast. Noticed over the course of the day became confused, making a lot of incoherent statements and became less responsive, drifting in and out of consciousness. My understanding is that she was under care of hospice, but I am not sure about this. At this point, I think they would like everything done. She came back to the hospital with this confusion. Urinary tract infection. Appeared to have sepsis, encephalopathy secondary to acute kidney injury, underlying urinary tract infection and sepsis, acute kidney injury in the face of diabetes mellitus type 2, history of multiple sclerosis, history of epilepsy. She has a stage II right heel ulcer and appears to have cellulitis. OBJECTIVE: General: On exam today, she is in restraints. Vital Signs: Temperature 97.2 degrees, pulse 115, respirations 14 and blood pressure 132/84. Eyes: Pupils are equal. Neurologic: I think she is oriented to person, but I am not sure she knows where she is at times. : Her urine output was 2900 mL. Blood sugars 213, 341 and 269. ASSESSMENT AND PLAN: 1. Multiple wounds on her legs. Wounds grew gram-positive cocci. 2. She also has fungal urinary tract infections. Chest x-ray shows atelectasis, no infiltrate. Dr. Bernabe is following. It feels like pneumonia is unlikely given her combination of daptomycin and cefepime. Continue topical treatment for wound infection. Does have fungemia. General Surgery is following. Continue to monitor. She seems to have perfusion through her dorsalis pedis, but likely has small-vessel disease related to vasopressors. Required to keep her pressure elevated. So, continue present management. Sliding scale. Pattern sugars. The patient was started on IV Keppra to avoid unexpected seizures. For blood pressure control, we are giving her epinephrine. REVIEW OF CURRENT MEDICATIONS: 1. She is on daptomycin 350 mg 24 hours. 2. Getting heparin subcutaneous 5000 units every 12 hours. 3. Getting cefepime 1 g q. 12 hours. 4. Normal saline 125 mL every hour. 5. Ceftriaxone was given 1 time. 6. Vancomycin was given 1 dose when she came in. cc: Hang Rao MD
[2018-10-29] MEDS: CUBICIN 350 MG in NS 100 ML IV SCH (10:11)
[2018-10-29 10:24] LABS: ALB/GLOB RATIO 0.5; ALBUMIN 2.8 g/dL (3.5-5.0); CALCIUM 8.3 mg/dL (8.8-10.2); POTASSIUM 4.6 mmol/L (3.5-5.1); TOTAL BILIRUBIN 0.27 mg/dL (0.20-1.00); TOTAL PROTEIN 8.1 g/dL (6.3-8.3)
--- NOTE | 2018-10-30 06:10 | GENERAL SURGERY PROGRESS NOTE ---
DATE: 10/30/2018 SUBJECTIVE: Patient less agitated, more alert today. She has been off pressors for almost 24 hours. OBJECTIVE: Vital Signs: The patient is currently afebrile. Her vital signs have been stable. She is off epinephrine. General Examination: Less agitated. Seems to follow commands. HEENT: Normocephalic and atraumatic. Pupils equal, round, reactive to light. Mucous membranes moist. Oropharynx benign. Neck: Supple. Trachea midline. Cardiovascular: Some mild tachycardia. Lungs: Some coarse sounds noted. Abdomen: Soft, nontender, nondistended. Extremities: Improvement noted to both feet, especially the left foot as far as the cyanosis. Vascular: All extremities perfused. Neurologic: More alert. Laboratory: None this morning as of yet. Reviewed labs from yesterday. ASSESSMENT AND PLAN: A 57-year-old with possible ischemic left leg. Ischemic left leg. At this time, it seems to be improving. She is off of pressors. We will need to monitor it. No immediate surgical intervention planned. cc: Anup Santos MD
[2018-10-30] MEDS: MAXIPIME 1 GM in NS 50 ML IV SCH (06:18)
[2018-10-30] MEDS: HEPARIN SUBQ SCH ×2 (06:18→20:55)
[2018-10-30] MEDS: HUMALOG SUBQ SCH ×3 (07:06→21:03)
[2018-10-30] MEDS: NS 1,000 ML IV SCH ×3 (07:06→23:32)
--- NOTE | 2018-10-30 08:31 | INFECTIOUS DISEASE PROGRESS NO ---
DATE: 10/30/2018 PRESENT ILLNESS: The patient has bilateral leg wound infections which are growing gram-positive cocci. MEDICATIONS: The patient is receiving daptomycin and cefepime. PHYSICAL EXAMINATION: Vital Signs: Temperature is 99 degrees, pulse 97, respirations 14, blood pressure 141/69. General: This is an obese, middle-aged female. She is more coherent today. Head/eyes/ears/nose/throat: She can hear my spoken words and see near objects. She does not have any white patches on her tongue. Neck: No meningismus. Lungs: Clear to auscultation. Cardiovascular: The patient's heart rate is regular. Abdomen: Soft and nontender. Extremities: The patient's distal legs are erythematous, especially the right leg where there are some wounds that have a sanguinopurulent drainage. LAB AND X-RAY: There is no new radiographic study. CBC shows a white count of 13,770, hemoglobin 11.7 and platelet count 295,000. Creatinine is 1. GFR is 57. Liver function studies are normal, except for an alkaline phosphatase of 133. As mentioned above, the patient's wounds are growing gram-positive cocci. ASSESSMENT AND PLAN: The patient has infected leg wounds. I am going to continue daptomycin, but discontinue cefepime because gram-negative organisms have not been seen. COMORBIDITIES: The patient's comorbidities: She has a seizure disorder and she has leg paralysis and contractures. The patient also is a diabetic. cc: Kyaw Bernabe MD
--- NOTE | 2018-10-30 09:27 | PROGRESS NOTE ---
DATE: 10/30/2018 SUBJECTIVE: Ms. Brown is out of restraints. She is oriented to person, place, seems to be cooperative. OBJECTIVE: Vital Signs: Temperature 98.3 degrees, pulse 108, respirations 17, blood pressure 127/102. Eyes: Pupils are equal. Neck: No distended neck veins. Lungs: Clear in all lung valerio. Cardiovascular exam: Regular rhythm and rate without murmur or S3. Abdomen: Soft. Skin: Warm and dry. : Urine output is 3600 mL. Blood sugars 269, 92 and 87. Extremities: On exam, her right foot is wrapped. It seems to be less irritated and seems to have improvement. ASSESSMENT AND PLAN: 1. Bilateral leg wound infections growing gram-positive cocci. The patient is currently receiving daptomycin and cefepime. Continue topical treatment. Possible ischemic left leg. 2. Treating her for fungal urinary tract infection. 3. History of seizure disorder. She has contractures of the lower extremities. She appears to be stable enough to move her to the floor. We will try and get her to a private room. 4. Diabetes mellitus. Sugars have come down. I think we can back down. Will continue sliding scale for now. cc: Hang Rao MD
[2018-10-30] MEDS: CUBICIN 350 MG in NS 100 ML IV SCH (09:30)
[2018-10-30] MEDS ORDERED: VANCOMYCIN 1,150 MG in NS 250 ML IV SCH (21:00)
[2018-10-30] MEDS: TYLENOL PO PRN (23:32)
--- NOTE | 2018-10-31 06:08 | GENERAL SURGERY PROGRESS NOTE ---
DATE: 10/31/2018 SUBJECTIVE: Patient doing well. She was transferred to the floor. OBJECTIVE: Vital Signs: Patient is currently afebrile, although her heart rate in the 120s and 130s recorded by the nursing staff. Blood pressure is stable. General: No acute distress. HEENT: Normocephalic, atraumatic. Pupils equal, round, reactive to light. Mucous membranes moist. Oropharynx benign. Neck: Supple. Trachea midline. Cardiovascular: Somewhat tachycardic. Lungs: Some coarse sounds noted. Abdomen: Soft, nontender, and nondistended. Extremities: Much improved. Neurologic: More alert. Skin wounds as previously described. Vascular: Left foot seems to be better perfused. LABORATORY: None this morning as of yet. ASSESSMENT AND PLAN: A 57-year-old with possible ischemic leg. 1. Ischemic left leg. At this time, seems to be improving. Will just continue to monitor. 2. Tachycardia. At this time, unsure of the etiology, but she has been tachycardic in the ICU before. We will defer to the hospitalist as far as workup and management. cc: Anup Santos MD
[2018-10-31] MEDS: HUMALOG SUBQ SCH ×4 (06:31→22:33)
[2018-10-31] MEDS ORDERED: TOPROL XL PO ONE (08:05)
[2018-10-31] MEDS: HEPARIN SUBQ SCH ×2 (08:31→22:35)
[2018-10-31] MEDS: BENADRYL PO PRN (10:56)
[2018-10-31] MEDS: TEARISOL OPH SOLUTION OPH PRN ×2 (10:57→22:39)
[2018-10-31] MEDS: CUBICIN 350 MG in NS 100 ML IV SCH (10:57)
--- NOTE | 2018-10-31 11:05 | Diag Imaging Result Doc PS360 ---
EXAM: CHEST-PORTABLE HISTORY: Dyspnea TECHNIQUE: Chest single view COMPARISON: 10/28/2018 FINDINGS: Poor inspiratory effort. Right hemidiaphragm is elevated. No cardiomegaly. No pleural effusions identified. Mild increased right perihilar markings. The overall appearance of the chest is fairly similar to the prior exam. IMPRESSION: Stable exam. Electronically signed by Herbie Banerjee 10/31/2018 11:02 AM
[2018-10-31] MEDS: TYLENOL PO PRN (15:43)
[2018-10-31] MEDS ORDERED: ULTRAM PO PRN (17:52)
[2018-10-31] MEDS: GLUCOPHAGE PO SCH ×2 (18:04→22:35)
[2018-10-31] MEDS: DIFLUCAN PO SCH (18:05)
--- NOTE | 2018-10-31 18:21 | PROGRESS NOTE ---
DATE: 10/31/2018 SUBJECTIVE: Ms. Brown is feeling better. Her legs do not hurt as much. I do need to get her back on her medicines, especially her seizure medicines, but I think she would like to go home with hospice when she is ready, OBJECTIVE: Vital Signs: Temp 98.3, pulse 120, respirations 20, blood pressure 169/86. HEENT: Pupils are equal and round. Lungs: Clear in all lung valerio. Cardiovascular: Regular rate without murmur or S3. Abdomen: Soft. Skin: Warm and dry. ASSESSMENT AND PLAN: 1. Ischemic left leg, at this time seems to be improving. Continue topical care. 2. Had some tachycardia. Will try and get her back on her home medications. 3. Treating for fungal urinary tract infection. 4. Diabetes mellitus type 2. Sugars appear under fairly good control. 5. Review of her orders: She is on daptomycin 350 mg IV q.24 hours and she is on low-dose heparin 5000 units subcutaneous q.12. 6. She does have a history of seizures. I think we need to get her back on her home medications. So put her back on her Keppra 500 mg twice a day. We will do her Toprol. I think that is been started back again. We will get her back on her zinc 100 mg daily and Nexium 40 mg a day. We will hold the furosemide for now, get her back on her Amaryl 2 mg b.i.d., and we will start her back on her Cozaar which is 50 mg a day, metformin 500 mg which I think she takes 4 times a day. cc: Hang Rao MD
[2018-10-31] MEDS: KEPPRA PO SCH (22:35)
[2018-10-31] MEDS: AMARYL PO SCH (22:35)
[2018-11-01] MEDS: BENADRYL PO PRN (00:17)
[2018-11-01] MEDS ORDERED: CATAPRES PO ONE (02:23)
--- NOTE | 2018-11-01 04:45 | INFECTIOUS DISEASE PROGRESS NO ---
DATE: 10/31/2018 PRESENT ILLNESS: Ms. Brown has bilateral lower extremity infections, that have grown Staph epi and Staph aureus, which is oxacillin-sensitive. She also has a vaginal nella. MEDICATIONS: She has been on daptomycin 350 mg IV every 24 hours. Today is day 3. PHYSICAL EXAMINATION: Vital Signs: Temperature is 100.3, pulse rate 112, respiratory rate 24, blood pressure 185/89, oxygen saturation 97% on 2 L nasal cannula. General: This is a chronically ill-appearing, middle-aged female. She is lying in the bed, currently in no acute distress. HEENT: Atraumatic, normocephalic. Oral mucous membranes are pink and moist. Conjunctivae are pink. Neck: Supple. Trachea is midline. Respiratory: Lung sounds are clear in the upper lobes, diminished in the bases. Cardiovascular: Heart rate and rhythm are regular, sinus tach on the monitor. There is a generalized tight edema noted from the abdomen down, which is pitting. There is swelling and stiffness to her hands as well. Her right lower extremity is wrapped with a Kerlix dressing. Left lower extremity has scattered erythematous areas. Abdomen: Large, mildly firm, bowel sounds are active. Neurologic: She is awake, alert, and oriented. Her mobility is severely diminished due to lower extremity paralysis, as well as contractures. LABORATORY AND X-RAY: Today, her creatine kinase is 689. Her left leg has grown oxacillin sensitive Staph aureus, and a separate culture of the wound has grown a Staph epidermidis. Chest x-ray today shows mild increased right perihilar markings. The overall appearance is similar to prior. No pleural effusions. ASSESSMENT AND PLAN: Ms. Brown has staph-infected leg wounds. She has already had her dressing changed to the right lower extremity today, so we have put in an order for the nurse to beep us when they change the dressing tomorrow, so we can look at the wounds. She is receiving daptomycin, which has elevated her creatine kinase level, so we will discontinue daptomycin at this time. She denies any muscle aches or pains at this point. We will recheck blood work tomorrow, and then determine a plan for antimicrobial therapy. She is complaining is of some vaginal irritation and itching, so we will go ahead and start her on fluconazole 200 mg by mouth tonight and daily. The previous plans have been discussed with, and recommended by, Dr. Bernabe. COMORBIDITIES: Seizure disorder, bilateral lower extremity paralysis and contractures, and diabetes mellitus. Dictated by RAMILA Camara for Kyaw Bernabe MD This chart was documented by, RAMILA Camara and accurately reflects the services performed, treatment plan and medical decisions as attested by the providers signature Kyaw Bernabe MD. cc: Kyaw Bernabe MD [facility]Flor
[2018-11-01] MEDS: HUMALOG SUBQ SCH ×4 (06:21→22:58)
[2018-11-01 07:31] LABS: BASO# 0.02 X1000 (0.0-0.2); BASO% 0.2 % (0.0-0.8); EOS# 0.12 X1000 (0.0-0.7); EOS% 1.1 % (0.0-10.0); HEMATOCRIT 38.4 % (37.0-47.0); IMM GRAN# 0.04 X1000 (0.0-0.04); IMM GRAN% 0.4 % (0.0-0.5); LYMPH# 2.33 X1000 (1.2-3.4); LYMPH% 21.9 % (20.5-51.1); MCH 29.1 PG (27-31); MCHC 31.3 g/dL (33-37); MONO# 0.67 X1000 (0.11-0.59); MONO% 6.3 % (1.7-9.3); NEUT# 7.47 X1000 (1.4-6.5); NEUT% 70.1 % (42.2-75.2); PLT 299 X1000 (130-400); RBC 4.13 XMIL (4.2-5.4); RDW 14.1 % (11.5-14.5); WBC 10.65 X1000 (4.8-10.8)
[2018-11-01 08:00] LABS: AGAP 14; BUN 11 mg/dL (8-22); CALCIUM 8.3 mg/dL (8.8-10.2); CHLORIDE 103 mmol/L (98-107); CK TOTAL 297 U/L (24-173); COSMO 267; CREATININE 0.6 mg/dL (0.5-0.9); ESTIMATED GFR > 60; GLUCOSE 116 mg/dL (70-104); POTASSIUM 4.4 mmol/L (3.5-5.1); SODIUM 133 mmol/L (136-145); TCO2 16 mmol/L (25-35)
[2018-11-01] MEDS: KEPPRA PO SCH ×2 (08:09→22:59)
[2018-11-01] MEDS: TOPROL XL PO SCH (08:09)
[2018-11-01] MEDS: ZINC SULFATE PO SCH (08:09)
[2018-11-01] MEDS: NEXIUM PO SCH (08:09)
[2018-11-01] MEDS: DIFLUCAN PO SCH (08:10)
[2018-11-01] MEDS: COZAAR PO SCH (08:10)
[2018-11-01] MEDS: GLUCOPHAGE PO SCH ×4 (08:11→22:59)
[2018-11-01] MEDS: HEPARIN SUBQ SCH ×2 (08:11→22:59)
[2018-11-01] MEDS: AMARYL PO SCH ×2 (08:11→22:59)
--- NOTE | 2018-11-01 08:22 | GENERAL SURGERY PROGRESS NOTE ---
DATE: 11/01/2018 SUBJECTIVE: Patient is doing about the same. OBJECTIVE: Vital Signs: Patient is currently afebrile. Her heart rate is in the low 100s. Blood pressure is stable. General: No acute distress. HEENT: Normocephalic, atraumatic. Pupils equal, round, and reactive to light. Mucous membranes moist. Oropharynx benign. Neck: Supple. Trachea midline. Cardiovascular: Regular rate and rhythm. Lungs: Some coarse sounds noted. Abdomen: Soft, nontender, and nondistended. Extremities: Swelling noted to both upper extremities. Her lower extremities are essentially unchanged. The wounds seem more improved. Vascular: Improved perfusion of the left leg. Neurologic: More alert. LABORATORY: None this morning as of yet. ASSESSMENT AND PLAN: A 57-year-old with possible leg ischemia. 1. Ischemic left leg. At this time, it seems to be resolved. We will follow peripherally for this. 2. Multiple medical comorbidities currently being managed by the hospitalist service. 3. Bilateral lower extremity leg wounds. At this time, recommend continue wound care. 4. We will follow peripherally. cc: Anup Santos MD
--- NOTE | 2018-11-01 12:34 | PROGRESS NOTE ---
DATE: 11/01/2018 SUBJECTIVE: She was having some pain in her hands yesterday. She says the tramadol is helping her. She is eating. She feels a little stronger. They do not feel ready to go home. Their desire is to go home with hospice. OBJECTIVE: Temperature 98.2, pulse 98, respirations 18, blood pressure 146/85. Pupils are equal and round. Lungs are clear in all lung valerio. Cardiovascular: Regular rhythm and rate without murmur or S3. Abdomen is soft. Skin is warm and dry. Urine output is 2600 mL. ASSESSMENT AND PLAN: 1. Bilateral lower extremity infections have grown Staph epi and Staph aureus which is oxacillin sensitive. She also has vaginal Candidiasis. Continue daptomycin 350 mg IV daily. This is day 4 and continue topical wound care. Continue physical therapy. 2. Fungal urinary tract infection. 3. Diabetes mellitus type 2. Sugars have been under fair control. Blood sugars 181, 116, 116, and 172. Continue low-dose heparin. 4. She has a history of seizures. She is back on Keppra. We will give her some physical therapy, occupational therapy. See what we can do to help her and hope to get her back home. We will see if Social Service thinks she is a candidate for hospice again. cc: Hang Rao MD
[2018-11-01] MEDS: TEARISOL OPH SOLUTION BOTH EYES SCH ×4 (13:44→22:59)
--- NOTE | 2018-11-01 21:58 | INFECTIOUS DISEASE PROGRESS NO ---
DATE: 11/01/2018 PRESENT ILLNESS: The patient has bilateral lower leg wounds. The patient also has vaginal candidiasis. MEDICATIONS: The patient was on daptomycin, but her CK became elevated so I stopped the daptomycin yesterday. The patient is receiving p.o. fluconazole for her vaginal candidiasis. PHYSICAL EXAMINATION: Vital Signs: Temperature is 98.6 degrees, pulse 74, respirations 18, blood pressure 164/73. General: This is a chronically ill-appearing, middle-aged female. She is much more alert today. Head/eyes/ears/nose/throat: She can hear my spoken words and see near objects. She does not have any drainage from her nose or ears. She does not have any white patches on her tongue. Neck: No stiffness. Lungs: Clear to auscultation. Cardiovascular: Heart rate is regular. Abdomen: Soft and nontender. Extremities: Both distal legs have wounds on them. The wounds were inspected today. There is no surrounding erythema. There is no purulent drainage. The eschars overlying the wounds were able to be removed. The patient's hands today are less erythematous and swollen. The patient can move her arms but is unable to move her legs. Neurologic: The patient is awake. She can move her extremities. There is no tremor. LAB AND X-RAY: There is no new radiographic study. CBC shows a white count of 10,650, hemoglobin is 12 and platelet count is 299,000. Creatinine is 0.6. GFR is greater than 60. CPK is 297. ASSESSMENT AND PLAN: The patient has leg wound infections. I think the infectious part is gone. I think all the patient requires is local care which she is getting. I do not think she requires antimicrobial therapy. As regarding the vaginal candidiasis, the patient has been on fluconazole and I have ordered that the fluconazole be stopped on November 04 at 8 p.m. I am signing off the patient's case today but I will be available to see her on a p.r.n. basis. COMORBIDITIES: Include seizure disorder, bilateral lower extremity paralysis and contractures and diabetes mellitus. cc: Kyaw Bernabe MD
[2018-11-02] MEDS: HUMALOG SUBQ SCH ×4 (06:36→21:05)
[2018-11-02] MEDS: HEPARIN SUBQ SCH ×2 (09:18→21:08)
[2018-11-02] MEDS: GLUCOPHAGE PO SCH ×4 (09:18→21:02)
[2018-11-02] MEDS: KEPPRA PO SCH ×2 (09:18→21:08)
[2018-11-02] MEDS: ZINC SULFATE PO SCH (09:18)
[2018-11-02] MEDS: TOPROL XL PO SCH (09:18)
[2018-11-02] MEDS: AMARYL PO SCH ×2 (09:18→21:03)
[2018-11-02] MEDS: DIFLUCAN PO SCH (09:19)
[2018-11-02] MEDS: NEXIUM PO SCH (09:19)
[2018-11-02] MEDS: TEARISOL OPH SOLUTION BOTH EYES SCH ×6 (09:19→21:08)
[2018-11-02] MEDS: COZAAR PO SCH (09:20)
--- NOTE | 2018-11-02 10:55 | PROGRESS NOTE ---
DATE: 11/02/2018 SUBJECTIVE: Ms. Brown is feeling better today. She is not in pain. Her wounds on her legs are improved. We have been able to stop her antibiotics. She is eating okay. She has not had a bowel movement. Does not want to take Milk of Magnesia. So, maybe we will try a little Colace. OBJECTIVE: Temperature 98.0. Pulse 89, respirations 16, blood pressure 137/70. Pupils are equal and round. Lungs are clear in all lung valerio. Cardiovascular: Regular rhythm and rate without murmur or S3. Abdomen is soft, nontender. Legs are wrapped. Skin warm and dry. Urine output 2600 mL. Blood sugar is 116, 126, and 61. ASSESSMENT AND PLAN: 1. Bilateral lower leg wounds. Also, has vaginal Candidiasis. The patient was on daptomycin. Her CK was elevated so this was stopped and her legs appears better. The patient receiving p.o. fluconazole for vaginal Candidiasis. 2. Diabetes mellitus, type 2. Sugars under good control. 3. History of seizure. She is on her Levetiracetam. REVIEW OF ORDERS: 1. The patient is on Diflucan 200 mg daily. 2. Glimepiride 2 mg b.i.d. 3. Low-dose heparin at 5000 units subcu q. 12. 4. Keppra 500 mg b.i.d. 5. Cozaar 25 mg a day. 6. Metformin 500 mg 4 times a day. 7. Metoprolol 50 mg a day. 8. Tramadol 50 mg q.12 p.r.n. 9. Zinc sulfate 220 mg a day. Hopefully, we can send her home on Sunday with hospice care. cc: Hang Rao MD
--- NOTE | 2018-11-02 14:56 | GENERAL SURGERY PROGRESS NOTE ---
DATE: 11/02/2018 TIME: 1:40 p.m. Ms. Brown is afebrile. Hemodynamics were okay. She has a right heel wound and the left foot wound. The erythema of her legs apparently is resolved. We will use Vashe gauze on her wounds. cc: Shaquille Swann MD
[2018-11-02] MEDS: BENADRYL PO PRN (15:44)
[2018-11-03] MEDS: HUMALOG SUBQ SCH ×4 (06:05→23:32)
[2018-11-03] MEDS: DIFLUCAN PO SCH (10:02)
[2018-11-03] MEDS: ZINC SULFATE PO SCH (10:02)
[2018-11-03] MEDS: NEXIUM PO SCH (10:02)
[2018-11-03] MEDS: COZAAR PO SCH (10:02)
[2018-11-03] MEDS: TOPROL XL PO SCH (10:02)
[2018-11-03] MEDS: KEPPRA PO SCH ×2 (10:02→23:32)
[2018-11-03] MEDS: HEPARIN SUBQ SCH ×2 (10:03→23:32)
[2018-11-03] MEDS: GLUCOPHAGE PO SCH ×4 (10:03→23:32)
[2018-11-03] MEDS: AMARYL PO SCH ×2 (10:03→23:32)
[2018-11-03] MEDS: TEARISOL OPH SOLUTION BOTH EYES SCH ×4 (10:07→23:33)
[2018-11-03] MEDS: BENADRYL PO PRN (12:56)
--- NOTE | 2018-11-03 13:57 | PROGRESS NOTE ---
DATE: 11/03/2018 SUBJECTIVE: Ms. Brown is feeling much better. She was working on her crocheting. OBJECTIVE: Vitals: She remains afebrile. Temperature 98.5 degrees, pulse 70, respirations 143/70. Eyes: Pupils are equal and round. Lungs: Clear in all lung valerio. Cardiovascular: Regular rhythm and rate without murmur or S3. Abdomen: Soft. Skin: Warm and dry. URINE OUTPUT: 3400 mL. LABORATORY: Blood sugar 96, 113, 116. ASSESSMENT AND PLAN: 1. Bilateral lower leg wounds, which are improving. Off antibiotics. 2. Vaginal candidiasis. On fluconazole for vaginal Candidiasis. 3. Diabetes mellitus type 2. Sugars under good control. 4. History of seizure. She is on levetiracetam. 5. General weakness. She has multiple sclerosis and has been confined to the bed. She has a chronic Hagen catheter. She is hoping to go home tomorrow with hospice and we will see if we can get things set up for that. cc: Hang Rao MD
[2018-11-04] MEDS: HUMALOG SUBQ SCH ×2 (06:06→12:39)
[2018-11-04] MEDS: TOPROL XL PO SCH (10:16)
[2018-11-04] MEDS: COZAAR PO SCH (10:16)
[2018-11-04] MEDS: ZINC SULFATE PO SCH (10:16)
[2018-11-04] MEDS: GLUCOPHAGE PO SCH ×2 (10:17→12:39)
[2018-11-04] MEDS: NEXIUM PO SCH (10:17)
[2018-11-04] MEDS: AMARYL PO SCH (10:17)
[2018-11-04] MEDS: HEPARIN SUBQ SCH (10:18)
[2018-11-04] MEDS: TEARISOL OPH SOLUTION BOTH EYES SCH ×2 (10:18→12:39)
[2018-11-04] MEDS: KEPPRA PO SCH (10:18)
[2018-11-04] MEDS: DIFLUCAN PO SCH (10:18)
--- NOTE | 2018-11-04 13:36 | DISCHARGE SUMMARY ---
ADMISSION DATE: 10/28/2018 DISCHARGE DATE: 11/04/2018 HOSPITAL COURSE: Dr. Vargas, I think is following her. She is on hospice care and intending to go home with hospice care. She is a 57-year-old discharged from our facility about a month ago with E coli sepsis UTI. Also had a history of multiple visits. She has underlying paralysis and some contractures in the lower extremities, history of seizure disorder, multiple decubitus, and some ulcers in the lower extremities, history of hypertension, diabetes mellitus type 2. She has been bed-bound for the last couple years, cared for by her mother and when she presented, her legs were irritated and very red and angry. Steffany Olsen applied topical care. Initially, concerned about infection and in fact, possible sepsis. We gave her some fluid, and lactic acid was 1.4. Started on Maxipime for gram-negative coverage of vancomycin and felt like there was significant cellulitis in the right foot. She is showing improvement. Blood pressure improved. Topical care leg seemed to improve. Infectious Disease was involved for bilateral lower extremity infections. Staphylococcus epidermidis and Staphylococcus aureus were growing, which are oxacillin sensitive, treated for antibiotics, able stop her antibiotics. Legs looked better. She did treat her for vaginal candidiasis as well, and felt like she was ready to go home. Set her up to go home on 11/04/2018 with hospice care. HER DISCHARGE MEDICATIONS: Get her Artificial Tears - Her eyes were matting a little bit, Nexium 40 mg a day, Diflucan 200 mg a day. She will get for another 2 weeks and then stop that. Amaryl 2 mg b.i.d., Keppra 500 mg b.i.d., Cozaar 25 mg a day, Glucophage 500 mg 4 times a day, Toprol-XL 50 mg a day, Ultram 50 mg p.o. q.12 hours p.r.n., and zinc sulfate 220 mg daily. I will also put her on some lactulose 30 mL twice a day. She has complained of constipation, and I think I will put her on some Colace 100 mg twice a day. cc: Hang Rao MD
[2018-11-04 14:32] VITALS: BP 140/72
== END 2018-11-04 18:15 | disposition hospice, home (50) | DRG 871 ==
LOC: ED 22:32 → SUATTDRO 10-28 05:55 → ICU 10-28 05:55 → 3N 10-30 10:16
PROVIDERS: ATTEND Emergency Medicine
CPT/HCPCS: 36569; 71010; 71045; 80048; 80053; 81001; 82550; 82948; 83605; 83735; 84484; 85025; 85610; 87040; 87070; 87077; 87088; 87186; 93005; 96361; 96365; 96366; 96368; 96375; 97110; 97162; 97165; 99285; 99291; A9270; J0171; J0692; J0696; J0878; J1644; J1815; J2060; J3370; J7030; J7050; XXXXX

== ENCOUNTER 2019-02-03 10:32 | Inpatient (IN) ==
--- NOTE | 2019-02-03 10:51 | PROVIDER DOCUMENTATION ---
HPI-General Adult - General Stated Complaint: AMS Time Seen by Provider: 02/03/19 10:43 Source: family, EMS Allergies/Adverse Reactions: Patient Allergies Allergy/AdvReac Type Severity Reaction Status Date / Time pantoprazole [From Protonix] Allergy Intermediate NAUSEA/VOMI Verified 02/03/19 11:59 TING Penicillins Allergy Intermediate HIVES Verified 02/03/19 11:59 codeine [Codeine] Allergy Unknown Unknown Verified 02/03/19 11:59 tetracycline [Tetracycline] Allergy Unknown Unknown Verified 02/03/19 11:59 adhesive tape Allergy ITCHING Verified 02/03/19 11:59 latex Allergy ITCHING Verified 02/03/19 11:59 meperidine HCl * Allergy ITCHING Verified 02/03/19 11:59 [From Demerol] Home Medications: Home Medication List Medication Instructions Recorded Confirmed Last Taken Type Baclofen 20 mg PO 4XDAY 09/12/12 10/30/18 04/21/15 18:00 History 20 MG Esomeprazole [Nexium] 40 mg PO DAILY 09/12/12 10/30/18 04/21/15 06:00 History 40 MG Metformin [Glucophage] 500 mg PO 4XDAY 09/12/12 10/30/18 04/21/15 09:00 History 500 MG Oxybutynin Chloride [Ditropan Xl] 15 mg PO BID 09/12/12 10/30/18 04/21/15 08:00 History 15 MG Levetiracetam [Keppra] 500 mg PO BID 09/17/14 10/30/18 04/21/15 10:00 History 500 MG Glimepiride [Amaryl] 2 mg PO BID 10/09/14 10/30/18 04/21/15 10:00 History 2 MG Metoprolol Succinate E.r. [Toprol 50 mg PO DAILY 10/09/14 10/30/18 04/21/15 09:00 History Xl] 50 MG Losartan [Cozaar] 25 mg PO DAILY 04/22/15 10/30/18 04/21/15 09:00 History 50 MG Furosemide [Lasix] 40 mg PO DAILY 08/30/18 08/30/18 Unknown History Ropinirole [Requip] 0.5 mg PO TID 08/30/18 10/30/18 Unknown History Epinephrine [Epipen 2-Nato] 0.3 mg IM PRN PRN 10/30/18 10/30/18 Unknown History Nystatin [Nystop] 15 gm TP PRN PRN 10/30/18 10/30/18 Unknown History Ondansetron HCl [Zofran] 4 mg PO Q6H PRN PRN 10/30/18 10/30/18 Unknown History Zinc 220 mg PO DAILY 10/30/18 10/30/18 Unknown History Fluconazole [Diflucan] 200 mg PO DAILY 14 Days #14 tab 11/04/18 Unknown Rx Polyvinyl Alcohol Eye Drops 1 drp BOTH EYES 4XDAY PRN 30 Days 11/04/18 Unknown Rx [Tearisol Oph Solution] #1 bottle Tramadol [Ultram] 50 mg PO Q12H PRN PRN 30 Days #60 11/04/18 Unknown Rx tab - History of Present Illness -Gen Adult Nature of Presenting Problems: Pt. is 58 yof that presents with c/o AMS. Pt. has a hx of DM and MS. Mother at bedside reports the patient was fine last night but when hospice came to see the patient today they wanted her to come get seen due to AMS. Pt. has indwelling suprapubic catheter and the mother reports sometimes she gets UTI's. Pt. only states that it hurts but doesn't specify what is hurting. Pt. has diabetic wounds to both feet. Location of Pain/Injury: reports: generalized. denies: none, head, face, mouth, neck, chest, upper extremity, hand(s), abdomen, back, pelvis, genitalia, lower extremity, feet, upper body, lower body, other Pain Radiation: reports: no radiation. denies: arm(s), back, buttocks, chest, epigastric, feet, groin, jaw, flank (L), legs (lower), LLQ, LUQ, neck, periumbilical, flank (R), RLQ, RUQ, shoulder(s), scapula, scrotal, sternal notch, suprapubic, legs (upper), urethral, vaginal, other Quality of Pain: reports: aching. denies: burning, cramping, indigestion, sharp, throbbing, tightness Severity: reports: moderate. denies: mild, severe Onset/Duration: reports: gradual, last night Timing: reports: still present. denies: gone now, intermittent, constant, getting worse Context/Activities at Onset: reports: none. denies: light activity, moderate activity, vigorous activity, recent emotional stress, recent physical stress, recent trauma history, possible bad food, cold exposure, eating, out of country travel, rest, sleep, sexual activity, other Modifying Factors: improves with: nothing Associated Symptoms: reports: genitourinary problems, malaise, other (AMS). denies: denies symptoms, anxiety, arm pain, back/neck pain, chest pain, constipation, cough, diaphoresis, diarrhea, dizziness, EENT symptoms, fatigue, fever/chills, headaches, heartburn, joint pain, loss of appetite, muscle aches, sinus congestion/drainage, nausea, rash, seizure, shortness of breath, sensory/motor loss, pain with inspiration, swelling/mass in abdomen, syncope, vomiting, weakness, trouble walking Similar Symptoms Previously?: Yes Recently seen or treated by another doctor?: No Review of Systems - Adult - REVIEW OF SYSTEMS - ADULT Constitutional: reports: no symptoms reported Eyes: reports: no symptoms reported Ears, Nose, Mouth & Throat: reports: no symptoms reported Cardiovascular: reports: no symptoms reported Respiratory: reports: no symptoms reported Gastrointestinal: reports: no symptoms reported Genitourinary: reports: no symptoms reported Musculoskeletal: reports: no symptoms reported Integumentary: reports: no symptoms reported Neurological: reports: see HPI, other (AMS) Psychiatric: reports: no symptoms reported Past History - Adult - PAST MEDICAL HISTORY-ADULT Review of Records: reports: Old Records Reviewed, Nursing Assessment Review, Medications Reviewed, Social history reviewed & non-contributory. Major Childhood Illnesses: reports: denies history Cardiovascular: reports: HTN Respiratory: reports: denies history Gastrointestinal: reports: GERD Obstetrical/Gynecological: reports: denies history Genitourinary: reports: denies history Musculoskeletal: reports: denies history Neurological: reports: Multiple Sclerosis (paraplegic with contractures) Endocrine/Immune: reports: Diabetes Other Conditions: reports: denies history - PRIOR SURGERIES/PROCEDURES Surgical/Procedure History: reports: cholecystectomy, hysterectomy, indwelling device (supapubic cath), tonsillectomy, orthopedic (extremity) (leg straightening due to chronic contractures secondary to MS) - IMMUNIZATION STATUS Childhood Immunizations: See Nurse Assessment Flu Vaccine: See Nurse Assessment - FAMILY HISTORY Family History: reviewed, not pertinent - SOCIAL HISTORY Smoking: non-smoker Physical Exam-General - PHYSICAL EXAM-ADULT Initial Vital Signs Reviewed: Yes - CONSTITUTIONAL General Appearance: alert, moderate distress, obese. negative: thin, anxious, obtunded, combative - EYES Eyes: PERRL/EOMI, pink conjunctivae. negative: sclera injected, scleral icterus, subconjunctival hemorrhage - HEAD, EARS, NOSE, MOUTH & THROAT HENMT: normocephalic/atraumatic, moist mucous membranes. negative: angioedema, frontal tenderness, maxillary tenderness - NECK Neck: non-tender, full range of motion, supple, normal inspection. negative: lymphadenopathy, trachial deviation, thyromegaly - RESPIRATORY Respiratory: lungs clear, normal breath sounds. negative: crackles, rales, rhonchi, stridor, wheezing - CARDIOVASCULAR Cardiovascular: normal peripheral pulses, regular rate, rhythm, no edema. negative: extra beats, friction rub, irregularly irregular - GASTROINTESTINAL (ABDOMEN) Abdominal Exam: normal bowel sounds, non tender, soft. negative: rigid, rebound, tenderness, hernia, mass - LYMPHATIC Lymphatic: no adenopathy. negative: axilla node tender, cervical node tenderness - MUSCULOSKELETAL Back Exam: normal inspection, no CVA tenderness, no vertebral tenderness. negative: scoliosis, swelling, vertebral tenderness Extremity: normal range of motion, non-tender, normal inspection. negative: deformity, erythema, inflammation, swelling, tenderness Peripheral Pulses: radial (R): 2+, radial (L): 2+ - SKIN Integumentary: normal color, normal turgor, warm/dry, embolic lesions (Both lower extremities have wounds on them and there is a wound to the sacrum). negative: cyanosis, erythema, jaundice, pallor, tenderness, warm - NEUROLOGIC Neurologic: grossly normal, no motor/sensory deficits. negative: aphasia, motor weakness, sensory deficit - PSYCHIATRIC Psych/Mental Status: disoriented x 3. negative: anxious, paranoid, tearful Progress - PLAN OF CARE/RESULTS Progress/Plan/Lab Results: Laboratory Tests 02/03/19 02/03/19 02/03/19 10:53 10:56 11:10 WBC RBC Hgb Hct MCV MCH MCHC RDW Std Deviation Plt Count MPV Immature Gran % (Auto) Neut % (Auto) Lymph % (Auto) [place] % (Auto) Eos % (Auto) Baso % (Auto) Immature Gran # (Auto) Neut # (Auto) Lymph # (Auto) [place] # (Auto) Eos # (Auto) Baso # (Auto) Specimen Type ARTERIAL Sample Site R BRACHIAL pH 7.38 pCO2 47 H pO2 66 HCO3 26.3 H Base Excess 2.0 Oxyhemoglobin 91.2 L ABG O2 Sat (Calculated) 17.1 ABG O2 Saturation 92.4 L ABG Carboxyhemoglobin 0.90 ABG Methemoglobin 0.4 Hang Test YES A-a O2 Difference 25.0 Total Hemoglobin 13.3 Lactate 1.60 FiO2 % 21.0 POC Glucose 163 H D Urine Source CATH Urine Color YELLOW Urine Turbidity HAZY Urine pH 5.5 Ur Specific [place] 1.020 Urine Protein 200 A Ur Glucose (Stick) NEGATIVE Ur Ketones (Stick) 20 A Urine Blood MODERATE A Urine Nitrite NEGATIVE Urine Bilirubin NEGATIVE Urobilinogen Dipstick NORMAL Urine Leukocytes LARGE A Urine WBC (Auto) TNTC A Urine RBC (Auto) TNTC A U Epithel Cells (Auto) <10 Urine Bacteria (Auto) 1+ Urine Crystals Not Reportable Small Round Cells Not Reportable Urine Casts Not Reportable Urine Yeast-like Cells PRESENT 02/03/19 12:30 WBC 13.84 H RBC 4.44 Hgb 12.5 Hct 40.7 MCV 91.7 MCH 28.2 MCHC 30.7 L RDW Std Deviation 16.0 H Plt Count 310 MPV 11.3 H Immature Gran % (Auto) 0.1 Neut % (Auto) 71.9 Lymph % (Auto) 18.6 L [place] % (Auto) 7.9 Eos % (Auto) 1.2 Baso % (Auto) 0.3 Immature Gran # (Auto) 0.02 Neut # (Auto) 9.95 H Lymph # (Auto) 2.57 [place] # (Auto) 1.10 H Eos # (Auto) 0.16 Baso # (Auto) 0.04 Specimen Type Sample Site pH pCO2 pO2 HCO3 Base Excess Oxyhemoglobin ABG O2 Sat (Calculated) ABG O2 Saturation ABG Carboxyhemoglobin ABG Methemoglobin Hang Test A-a O2 Difference Total Hemoglobin Lactate FiO2 % POC Glucose Urine Source Urine Color Urine Turbidity Urine pH Ur Specific [place] Urine Protein Ur Glucose (Stick) Ur Ketones (Stick) Urine Blood Urine Nitrite Urine Bilirubin Urobilinogen Dipstick Urine Leukocytes Urine WBC (Auto) Urine RBC (Auto) U Epithel Cells (Auto) Urine Bacteria (Auto) Urine Crystals Small Round Cells Urine Casts Urine Yeast-like Cells Dr. Mora at bedside for evaluation Discussed results and plan of care with patient. Patient agrees with plan and verbalizes understanding. Result Diagrams: 02/03/19 12:30 02/03/19 12:30 - REASSESSMENT Reassessment #1 Time Reassessed: 16:30 Status: worsening (Nurse called patient is bradycardic to early 40s and breathing is shallow. patient assessed by myself and Dr. Mora. Atropine given and HR improved. Endotracheal intubation done by myself Dr. Landry. RT at [facility].) - EKG 1 Time of EKG reading by physician:: 10:50 EKG Read and Signed by:: Vineet Mora EKG Interpretation (*Must complete 3 of following elements*): Normal Rate: 88 Rhythm: NSR - XRAY 1 XRAY Study: Chest ([facility] [address] , [address], [place] [address] Department of Imaging Patient: CURLY URIAS Date: 02/03/19#: [id number] : 1960DM Status: REG ERAcct#: [id number] Age/Sex: 58/FRoom/Bed: Loc: ED Ordering Physician: Milan Mauricio Family Physician: Marc Vargas MD Reason for Procedure: ams Signed EXAM: CHEST-1 VIEW HISTORY: ams TECHNIQUE: Semiupright portable chest single view COMPARISON: 10/31/2018 FINDINGS: The lungs are poorly expanded. The right hemidiaphragm is elevated. The heart is not enlarged. The vessels are not distended. There are no infiltrates. No effusion identified. IMPRESSION: Negative exam. Electronically signed by Herbie Banerjee 02/03/2019 11:43 AM 02/03/19 1143 Interpreting Physician: Herbie Banerjee MD Dictated Date/Time: 02/03/19 1142 cc: Milan Mauricio; Marc Vargas MD) XRAY Interpretation: See note - CONSULTS/PCP/HOSPITALIST Notification #1 *Consult/PCP/Hospitalist*: Rylie Paige Time Discussed: 14:35 Reason/Comments: Admission Consult Disposition: Will see in ED, Admit Procedures - CENTRAL LINE Consent Form Signed?: No (Procedure assisted by Dr. Kalia Willoughby) Time-Out Verification Completed?: Yes (2:43 PM) Central Line Lumen: triple Central Line Procedure Prep: Hand Hygeine Performed, Kit Utilized, Chloraprep, Sterile Body Drape Placed, Antibiotic-coated Catheter Used Patient Position (To prevent Air Embolism): Trendelenburg (SC/IJ) Central Line Position: internal jugular (R) Ultrasound Guided?: Yes Hat, mask, sterile gown, & sterile gloves worn by physician?: Yes Site scrubbed vigorously for 30 seconds? (Groin: 2 min): Yes Anesthetic: 2%, Lidocaine/Xylocaine Volume of Anesthetic (ml's): 2 Post Procedure: Sutured in place, Sterile field maintained, BioPatch placed, Sterile dressing applied, Blood aspirated from each lumen Complications: See comments (Central line in right axillary vein, removed by Dr. Stratton.) Procedure Comment: x-ray done catheter in the right axillary vein. - INTUBATION Time of Intubation: 16:37 Airway Evaluation: Obese Intubation Method: orotracheal Equipment: ETT Tube Size (cm): 7.5 (23 @ right lip corner) Pretreated with 100% Oxygen?: Yes Breath Sounds after Intubation: equal ETT Primary Tube Confirmation: Capnometry CO2 Change, Direct Visualization, Chest Rise and Fall, Tube placement verified on XRAY Intubation Complications: no complications Vent Settings: See Respiratory Therapy Notes Procedure Comment: Procedure done under supervision of Dr. Mora. Departure - Departure Date of Disposition Decision: 02/03/19 Time of Disposition Decision: 14:29 DIAGNOSIS: Cellulitis and abscess of foot excluding toe, Hyperkalemia Altered mental status Qualifiers: Altered mental status type: unspecified Qualified Code(s): R41.82 - Altered mental status, unspecified Sepsis Qualifiers: Sepsis type: sepsis due to unspecified organism Qualified Code(s): A41.9 - Sepsis, unspecified organism Urinary tract infection Qualifiers: Urinary tract infection type: acute cystitis Hematuria presence: without hematuria Qualified Code(s): N30.00 - Acute cystitis without hematuria Hypotension Qualifiers: Hypotension type: unspecified hypotension type Qualified Code(s): I95.9 - Hypotension, unspecified Leukocytosis Qualifiers: Leukocytosis type: unspecified Qualified Code(s): D72.829 - Elevated white blood cell count, unspecified Disposition: ADMITTED INPATIENT 09 Certified Medical Emergency: Emergent Condition: Stable - Critical Care Note This patient required my direct & personal management of CC.: Yes Total Time (mins): 45 Critical Care Statement: This patient required my direct personal management to treat or rule out processes, the absence of which, could potentiallly result in sudden, clinically significant life or limb threatening deterioration. Attestation - Physician/ JOCE Attestation Patient care was provided by Advanced Practice Provider:: Yes Advanced Practice Provider:: Milan Mauricio Advanced Practice Provider documentation review:: The Mid-level provider documentation, treatment plan and medical decision making was reviewed by the physician who agrees with all treatment and medical decision making by the [facility]. The physician spent face to face time with patient:: Yes Advanced Practice Provider documentation review:: Supervising physician onsite and consulted in the evaluation and care of this patient. The physician did have a face to face encounter with the patient.
[2019-02-03] MEDS ORDERED: ATIVAN IV ONE ×2 (11:05→11:29)
[2019-02-03] MEDS ORDERED: ATIVAN ONE (11:06)
[2019-02-03 11:29] LABS: URINE SOURCE CATH
[2019-02-03 11:36] LABS: BILIRUBIN URINE NEGATIVE (NEGATIVE); BLOOD URINE MODERATE (NEGATIVE); COLOR YELLOW; GLUCOSE URINE NEGATIVE (NEGATIVE); KETONE URINE 20 mg/dL (NEGATIVE); LEUKOCYTES URINE LARGE (NEGATIVE); NITRITE URINE NEGATIVE (NEGATIVE); PH URINE 5.5; PROTEIN URINE 200 mg/dL (NEGATIVE); TURBIDITY URINE HAZY (CLEAR); UROBILINOGEN URINE NORMAL (NORMAL)
[2019-02-03 11:45] LABS: UR EPITHELIAL CELLS <10 /HPF (<10); URINE BACTERIA 1+ /HPF; URINE RBC TNTC /HPF (<10); URINE WBC TNTC /HPF (<10)
--- NOTE | 2019-02-03 11:45 | Diag Imaging Result Doc PS360 ---
EXAM: CHEST-1 VIEW HISTORY: ams TECHNIQUE: Semiupright portable chest single view COMPARISON: 10/31/2018 FINDINGS: The lungs are poorly expanded. The right hemidiaphragm is elevated. The heart is not enlarged. The vessels are not distended. There are no infiltrates. No effusion identified. IMPRESSION: Negative exam. Electronically signed by Herbie Banerjee 02/03/2019 11:43 AM
[2019-02-03] MEDS ORDERED: ROCEPHIN 1 GM in NS 50 ML IV ONE (11:46)
[2019-02-03 11:54] LABS: URINE YEAST PRESENT
[2019-02-03] MEDS ORDERED: NS 2,000 ML ONE (12:09)
[2019-02-03 12:10] LABS: ALLEN TEST YES; BLOOD TYPE ARTERIAL; HCO3-(ACT) 26.3 mmoll (20.0-26.0); METHB 0.4 % (0.0-1.5); O2(CT) 17.1 mL/dL (15.0-23.0); O2HB 91.2 % (95.0-99.0); PCO2(98.6) 47 mmHg (35-45); PO2(98.6) 66 mmHg (60-100); SAMPLE BLOOD; SAO2 92.4 % (95.0-100.0); THB 13.3 g/dL (11.5-17.4); pH(98.6) 7.38 (7.35-7.45)
[2019-02-03] MEDS ORDERED: GEODON ONE (13:12)
[2019-02-03] MEDS ORDERED: STERILE WATER INJ. INJ ONE (13:27)
[2019-02-03] MEDS ORDERED: GEODON IM ONE (13:27)
[2019-02-03] MEDS ORDERED: NS 1,000 ML IV ONE ×2 (13:27)
[2019-02-03 13:57] LABS: BASO# 0.04 X1000 (0.0-0.2); BASO% 0.3 % (0.0-0.8); EOS# 0.16 X1000 (0.0-0.7); EOS% 1.2 % (0.0-10.0); HEMATOCRIT 40.7 % (37.0-47.0); HEMOGLOBIN 12.5 g/dL (12.0-16.0); IMM GRAN# 0.02 X1000 (0.0-0.04); IMM GRAN% 0.1 % (0.0-0.5); LYMPH# 2.57 X1000 (1.2-3.4); LYMPH% 18.6 % (20.5-51.1); MCH 28.2 PG (27-31); MCHC 30.7 g/dL (33-37); MCV 91.7 FL (81-99); MONO% 7.9 % (1.7-9.3); MPV 11.3 FL (7.4-10.4); NEUT# 9.95 X1000 (1.4-6.5); NEUT% 71.9 % (42.2-75.2); PLT 310 X1000 (130-400); RBC 4.44 XMIL (4.2-5.4); WBC 13.84 X1000 (4.8-10.8)
[2019-02-03] MEDS ORDERED: VANCOMYCIN 1 GM/NS 1 GM/250 ML IVPB IV ONE (14:03)
[2019-02-03 14:25] LABS: ALB/GLOB RATIO 0.9; ALBUMIN 3.6 g/dL (3.5-5.0); CALCIUM 8.9 mg/dL (8.8-10.2); MAGNESIUM 1.9 mg/dL (1.5-2.7); POTASSIUM 5.4 mmol/L (3.5-5.1); TOTAL BILIRUBIN 0.45 mg/dL (0.20-1.00); TOTAL PROTEIN 7.4 g/dL (6.3-8.3)
[2019-02-03 14:47] LABS: CK-MB 8.09 ng/mL (0.0-5.0)
[2019-02-03] MEDS ORDERED: DOPAMINE 400 MG/D5W 400 MG/500 ML IV.SOLN IV SCH (15:30)
--- NOTE | 2019-02-03 15:34 | Diag Imaging Result Doc PS360 ---
EXAM: CHEST-1 VIEW 02/03/2019 HISTORY: central line placement TECHNIQUE: AP portable at 1526 COMMENT: There is no evidence of acute cardiac or pulmonary disease. There is a right internal jugular catheter which appears to pass into the subclavian and axillary vein on the right. There is no evidence of pneumothorax or pleural fluid collection. Compared to 02/03/2019 there has been no significant change other than placement of the right internal jugular catheter. IMPRESSION: Right internal jugular catheter in the right axillary vein. Electronically signed by Elia Mills 02/03/2019 3:32 PM
[2019-02-03] MEDS ORDERED: VANCOMYCIN IV PER PHARMACY MISC SCH (15:36)
[2019-02-03] MEDS ORDERED: ZOFRAN IV PRN (15:36)
--- NOTE | 2019-02-03 16:22 | HISTORY AND PHYSICAL ---
PRIMARY CARE PHYSICIAN: Dr. Marc Vargas. CHIEF COMPLAINT: Increased confusion. HISTORY OF PRESENTING ILLNESS: This is a 58-year-old female who presents to [facility] via EMS, well known to the hospitalist service with complaints of altered mental status. Mother is at bedside and states that the patient was fine last night, but when hospice came this morning to visit the patient, she was confused. She gets frequent urinary tract infections and become septic, so they sent her to the emergency room for evaluation. She is noted to have an indwelling suprapubic catheter and gets frequent UTIs. She also has multiple diabetic wounds to both feet and decubitus ulcer to her sacral area. She was confused on arrival and thrashing according to the nurse practitioner who assessed her. When she arrived, she had a blood pressure of 110/84. Due to her increased agitation, she required some Ativan 1 mg IV x1. Her blood pressure dropped to 51/35. We started a fluid bolus of normal saline, but we lost her IV peripheral access, were unable to reobtain that and so currently at this time a central line is being placed. She is noted to have a blood pressure of 60/39 after receiving Geodon 10 mg IM x1 and placed in 4-point restraints. Currently at time of assessment, she has become lethargic and calm. While central line is being placed removed her 4 point restraints. DIAGNOSTIC DATA: Showed a white blood cell count of 13.84. Her creatine kinase was 845. CK-MB is pending. Urinalysis showed moderate blood, negative nitrites, large leukocytes, 1+ bacteria. Yeastlike cells were present. Her chest x-ray showed a negative exam. Once her central line is placed, we will run 2 L of normal saline boluses in and we will attempt to get a CT of the head and she will be admitted to the intensive care unit for further evaluation and treatment. 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 Seizure disorder, multiple decubitus ulcers on her lower extremities, hypertension, type 2 diabetes. She has been noted to be bed-bound for the last 2 years and cared for by her mother and hospice. PAST SURGICAL HISTORY: Cholecystectomy, hysterectomy tonsillectomy and placement of a suprapubic catheter. FAMILY HISTORY: Her dad had diabetes and heart disease. SOCIAL HISTORY: She currently lives with her mother. She is on hospice care. No tobacco, alcohol or illicit drugs. ALLERGIES: Protonix, penicillin, codeine, tetracyclines, adhesive tape, latex, and meperidine. HOME MEDICATIONS: A current list will need to be obtained, reviewed and restarted as appropriate. We will place an order for nursing to update and confirm home medications. LABORATORY DATA: Shows a white blood cell count of 13.84, hemoglobin of 12.5, hematocrit 40.7 platelets 310,000. ABG with a pH of 7.38, pCO2 of 47, PO2 of 66, bicarbonate 26.3, and that was on room air. Sodium 140, potassium 5.4, chloride 99, CO2 24, BUN of 47, creatinine 1, glucose 163, magnesium 1.9, creatine kinase of 845. CK-MB is pending. Urinalysis showed moderate blood, negative nitrites, large leukocytes, and 1+ bacteria. Chest x-ray showed a negative exam. REVIEW OF SYSTEMS: Unable to obtain from patient due to her lethargy. PHYSICAL EXAMINATION: On arrival, she had a pulse of 89, respirations 14, blood pressure 110/84 saturating 97% on room air. She did receive an Ativan and a dose of Geodon several hours apart, but her blood pressure has dropped now to 60/39. We are placing a central line for administration of her fluids. HEENT: Normocephalic, atraumatic. Normal ENT inspection. Oropharynx and nares are clear. EYES: Pupils are equal, round, and reactive to light and accommodation. Extraocular movements unable to assess at this time. NECK: Normal inspection normal range of motion. LUNGS: Clear to auscultation bilaterally with equal lung expansion and chest wall movement. HEART: Regular rate and rhythm. No murmurs, rubs, or gallops. ABDOMEN: Soft, nontender, nondistended. Bowel sounds are present x4 quadrants. She is noted to have a suprapubic catheter draining cloudy sedimented urine. MUSCULOSKELETAL: Unable to obtain. She does have multiple contractures and is bedbound. SKIN: Both lower extremities noted to have decubitus ulcers and a decubitus ulcer to her sacrum. NEUROLOGIC: Unable to obtain at this time due to lethargy. ASSESSMENT: 1. Acute hypoxemic respiratory failure 2. Pneumonia 3. Septic shock 4. Urinary tract infection. 5. Multiple decubitus ulcers. 6. Diabetes mellitus type 2 7. Acute kidney injury 8. Hyperkalemia PLAN: She will be admitted to the intensive care unit, placed on telemetry, O2 per protocol. We are placing a central line currently by the ER physician to run 2 L of normal saline and then she will be given Rocephin 1 gram IV x1, vancomycin per pharmacy protocol. We are going to get a CT of her head without contrast. We will update and confirm home medications as previously stated. She will be NPO. We will do serial CBC, plasma lactate, BMP daily and urine culture is pending. The patient will be started on broad spectrum antibiotics, IV fluid and levophed.. Will consult with the technical analyst for assistance with ventilator management. The patient is critically ill with a high risk of mortality. Dictated by RAMILA Holden for Bernie Brambila MD cc: RAMILA Holden MD Gregory S. Cheatham, MD I performed a face to face encounter on the patient. I reviewed all imaging and labs on the patient. I agree with the H&P as dictated. Ms. Brown was brought to the ER via EMS due to increased confusion at home according to the family. Upon arrival the patient was noted to be in septic shock. She had no viable access so a central line was placed and the patient was started on levophed and broad spectrum antibiotics. The patient was subsequently sedated and intubated. The patient has a urinary tract infection and pneumonia. The patient is critically ill with a high risk of mortality. MARIZA
[2019-02-03] MEDS: LEVOPHED 8 MG in D5 1/2 NS 250 ML IV SCH (16:26)
[2019-02-03] MEDS ORDERED: ATROPINE SYRINGE ONE (16:28)
[2019-02-03] MEDS ORDERED: AMIDATE ONE (16:33)
[2019-02-03] MEDS ORDERED: QUELICIN ONE (16:34)
[2019-02-03] MEDS ORDERED: AMIDATE IV ONE (16:35)
[2019-02-03] MEDS ORDERED: VANCOMYCIN 1,500 MG in NS 250 ML IV ONE (17:00)
--- NOTE | 2019-02-03 17:09 | Diag Imaging Result Doc PS360 ---
EXAM: CHEST-1 VIEW 02/03/2019 HISTORY: post-intubation and failed R central line insertio TECHNIQUE: AP portable at 1657 COMMENT: There is an endotracheal tube with its tip at the doretha. There is an NG tube with its tip in the stomach. The inspiration is suboptimal. The right-sided internal jugular catheter has been removed. Compared to the previous study at 1526 there is increasing opacification and volume loss in the right upper lobe. IMPRESSION: Atelectasis versus pneumonia right upper lobe. Endotracheal tube at the doretha. Electronically signed by Elia Mills 02/03/2019 5:07 PM
[2019-02-03] MEDS ORDERED: QUELICIN IV ONE (17:14)
[2019-02-03] MEDS ORDERED: ATROPINE SYRINGE IV ONE (17:22)
[2019-02-03] MEDS ORDERED: DIPRIVAN 1% 1,000 MG/100 ML BOTTLE ONE (17:33)
[2019-02-03] MEDS ORDERED: DIPRIVAN 1% IV ONE (17:44)
[2019-02-03] MEDS ORDERED: VERSED ONE (18:06)
[2019-02-03] MEDS: DIPRIVAN 1% 1,000 MG/100 ML BOTTLE IV SCH (18:43)
[2019-02-03] MEDS ORDERED: VERSED IV ONE (18:53)
--- NOTE | 2019-02-03 19:08 | Diag Imaging Result Doc PS360 ---
EXAM: CHEST-1 VIEW 02/03/2019 HISTORY: central line placement TECHNIQUE: AP portable at 1843 COMMENT: There is a left internal jugular central venous catheter with its tip in the superior vena cava. The left marker is on the incorrect side. There is an endotracheal tube with its tip at thoracic inlet and an NG tube with its tip below the diaphragm in the stomach. There is still atelectasis or pneumonia in the right upper lobe with volume loss. The right hemidiaphragm is elevated. IMPRESSION: Left internal jugular central venous catheter in proper position. Electronically signed by Elia Mills 02/03/2019 7:06 PM
--- NOTE | 2019-02-03 19:35 | Diag Imaging Result Doc PS360 ---
EXAM: CT HEAD W/O CONTRAST 02/03/2019 HISTORY: ams TECHNIQUE: This exam was performed using automated exposure control, adjustment of mA or kV according to patient size, and/or use of iterative reconstruction technique. COMMENT: There is no evidence of mass effect, bleed, or abnormal extra-axial fluid collection. There is subcortical white matter lucency in the left frontal lobe. There is a mucous retention cyst in the left maxillary sinus and some mucosal thickening in the right maxillary sinus and left sphenoid sinus. The calvarium is intact. IMPRESSION: Chronic ischemic microvascular disease. No evidence of acute intracranial disease. Electronically signed by Elia Mills 02/03/2019 7:32 PM
--- NOTE | 2019-02-03 19:38 | OPERATIVE NOTE ---
PROCEDURE DATE: 02/03/2019 PREOPERATIVE DIAGNOSES: 1. Poor peripheral venous access. 2. Hypotension. 3. Altered mental status. 4. Respiratory failure. POSTOP DIAGNOSIS: 1. Poor peripheral venous access. 2. Hypotension. 3. Altered mental status. 4. Respiratory failure. PROCEDURE: Insertion of central venous catheter with ultrasound guidance. SURGEON: Dr. Mino Guerrero. ESTIMATED BLOOD LOSS: Scant. COMPLICATIONS: None apparent. FINDINGS: The left internal jugular vein was found with ultrasound. It was compressible, patent and without thrombus. TECHNIQUE: The patient was kept supine in her ER stretcher. She was placed in Trendelenburg position. Her left neck was prepped and draped in usual sterile fashion. 1% lidocaine was used to anesthetize the skin. The left internal jugular vein was then accessed under ultrasound guidance drawing back dark nonpulsatile blood. The wire passed easily. The track was dilated. A triple-lumen central venous catheter was passed over the wire into the vein via the Seldinger technique. The wire was removed. The catheter was anchored to the skin with silk suture. All ports naeem back blood and were flushed with saline. A sterile dressing was applied. There were no apparent complications. cc: Mino Guerrero MD
[2019-02-03] MEDS: DUONEB (A & A) INH SCH ×2 (19:58→23:54)
[2019-02-03] MEDS: KEPPRA 500 MG in NS 100 ML IV SCH (20:05)
[2019-02-03 20:46] LABS: ALB/GLOB RATIO 0.8; CALCIUM 7.7 mg/dL (8.8-10.2); CREATININE 1.1 mg/dL (0.5-0.9); POTASSIUM 4.4 mmol/L (3.5-5.1); TOTAL BILIRUBIN 0.5 mg/dL (0.20-1.00); TOTAL PROTEIN 6.8 g/dL (6.3-8.3)
--- NOTE | 2019-02-03 20:46 | PULMONOLOGY CONSULTATION ---
DATE: 02/03/2019 REQUESTING PHYSICIAN: Dr. Brambila. REASON FOR CONSULTATION: Ventilatory failure. HISTORY OF PRESENT ILLNESS: Ms. Brown is a 58-year-old female with a long history of multiple sclerosis, bedbound status, decubitus ulcers, seizure disorder, who has been bedbound for the last 2 years and is currently on hospice. The patient was being evaluated by the hospice staff and she was noted to be confused. The patient developed hypotension in the emergency room and subsequent bradycardia requiring intubation and mechanical ventilation. Two ER attempts to place a central line were unsuccessful. Central line was placed by Dr. Guerrero. PAST MEDICAL HISTORY: 1. Severe multiple sclerosis as per above. 2. Diabetes mellitus. 3. Multiple contractures. 4. Suprapubic catheter with recurrent urinary tract infections. 5. Multiple decubitus ulcers. 6. Seizure disorder. 7. Status post cholecystectomy. 8. Status post tonsillectomy. 9. Status post hysterectomy. FAMILY HISTORY: Positive for heart disease and diabetes mellitus. No alcohol or tobacco use noted. REVIEW OF SYSTEMS: Cannot be obtained. PHYSICAL EXAMINATION: General: Reveals a chronically ill-appearing white female who is being transferred from the emergency room to an ICU bed. She appears to be agitated. She is currently on Levophed for hypotension. She is moving her head from side to side while on sedation. HEENT: Pupils are equal. Oropharynx appears dry. Neck: Supple. Chest: Reveals good air entry bilaterally with rhonchi bilaterally. Cardiac Exam: S1-S2. Abdomen: Soft without bowel sounds. Extremities: Reveal ulcers on the lower extremities, loss of muscle mass/tone. LABORATORIES: CT scan of the brain reveals chronic ischemic microvascular disease. Chest x-ray is clear with central line in good position. There has been no arterial blood gas following intubation, one will be ordered. White blood count 13.8, hemoglobin 12.5, platelet count 310,000. Urinalysis reveals wtj-tvorfhqr-sh-count white blood cells and yeast. IMPRESSION: A 58-year-old with acute hypoxemic respiratory failure, septic shock, urinary tract infection, altered mental status, severe debilitation on hospice. The patient's code status remains unaddressed. RECOMMENDATIONS: 1. Additional volume resuscitation. 2. Continue full ventilatory support. 3. DVT prophylaxis as you are doing. 4. Gastric acid suppression. 5. Propofol for sedation. 6. Agree with palliative care consult. Her overall prognosis is extremely poor. cc: Santana Alarcon MD
[2019-02-03] MEDS ORDERED: HUMULIN R SUBQ SCH (21:00)
[2019-02-03 21:03] LABS: CK INDEX 1.3 (0.0-2.5); CK-MB 9.75 ng/mL (0.0-5.0)
[2019-02-03] MEDS: SODIUM BICARBONATE 8.4% 150 MEQ in D5W 1,000 ML IV SCH ×2 (21:35→22:54)
[2019-02-03 21:52] LABS: BASO# 0.04 X1000 (0.0-0.2); BASO% 0.2 % (0.0-0.8); EOS# 0.41 X1000 (0.0-0.7); HEMATOCRIT 39.5 % (37.0-47.0); HEMOGLOBIN 12.4 g/dL (12.0-16.0); IMM GRAN# 0.06 X1000 (0.0-0.04); IMM GRAN% 0.3 % (0.0-0.5); LYMPH# 5.81 X1000 (1.2-3.4); LYMPH% 28.7 % (20.5-51.1); MCH 28.4 PG (27-31); MCHC 31.4 g/dL (33-37); MCV 90.6 FL (81-99); MONO# 1.42 X1000 (0.11-0.59); MPV 11.1 FL (7.4-10.4); NEUT# 12.51 X1000 (1.4-6.5); NEUT% 61.8 % (42.2-75.2); PLT 354 X1000 (130-400); RBC 4.36 XMIL (4.2-5.4); RDW 15.9 % (11.5-14.5); WBC 20.25 X1000 (4.8-10.8)
[2019-02-03 22:14] LABS: LYMPHS 28 % (21-51); MONO 4 % (1-9); SEGS 68 % (42-75)
[2019-02-03] MEDS: MAXIPIME 1 GM in NS 50 ML IV SCH (23:20)
[2019-02-04] MEDS: LEVOPHED 8 MG in D5 1/2 NS 250 ML IV SCH ×3 (00:08→15:04)
[2019-02-04 01:38] LABS: CK INDEX 1.7 (0.0-2.5); CK-MB 9.69 ng/mL (0.0-5.0)
[2019-02-04] MEDS ORDERED: ASPIRIN PR ONE (01:54)
[2019-02-04] MEDS: ZYVOX 600 MG/D5W 600 MG/300 ML IVPB IV SCH ×2 (02:19→15:04)
[2019-02-04] MEDS: DUONEB (A & A) INH SCH ×6 (03:57→23:15)
[2019-02-04] MEDS: DIPRIVAN 1% 1,000 MG/100 ML BOTTLE IV SCH ×4 (04:58→21:28)
[2019-02-04] MEDS: TYLENOL PR PRN (04:58)
[2019-02-04] MEDS: HUMULIN R SUBQ SCH ×6 (04:58→23:35)
[2019-02-04 05:30] LABS: ALLEN TEST YES; BLOOD TYPE ARTERIAL; MODALITY VENTILATOR; SAMPLE BLOOD; SRATE 12 BPM; TVOL 600 mL
[2019-02-04 05:32] LABS: PCO2(98.6) 34 mmHg (35-45)
[2019-02-04 05:33] LABS: PO2(98.6) 123 mmHg (60-100)
[2019-02-04 05:42] LABS: BASO# 0.03 X1000 (0.0-0.2); BASO% 0.2 % (0.0-0.8); EOS# 0.19 X1000 (0.0-0.7); EOS% 1.1 % (0.0-10.0); HEMATOCRIT 40.5 % (37.0-47.0); HEMOGLOBIN 12.9 g/dL (12.0-16.0); IMM GRAN# 0.05 X1000 (0.0-0.04); IMM GRAN% 0.3 % (0.0-0.5); LYMPH# 4.25 X1000 (1.2-3.4); LYMPH% 24.4 % (20.5-51.1); MCH 28.5 PG (27-31); MCHC 31.9 g/dL (33-37); MCV 89.4 FL (81-99); MONO# 1.48 X1000 (0.11-0.59); MONO% 8.5 % (1.7-9.3); MPV 11.5 FL (7.4-10.4); NEUT# 11.41 X1000 (1.4-6.5); NEUT% 65.5 % (42.2-75.2); PLT 298 X1000 (130-400); RBC 4.53 XMIL (4.2-5.4); RDW 15.8 % (11.5-14.5); WBC 17.41 X1000 (4.8-10.8)
[2019-02-04] MEDS: NS 1,000 ML IV SCH ×5 (06:39→23:50)
[2019-02-04 07:09] LABS: ALB/GLOB RATIO 0.8; ALBUMIN 2.8 g/dL (3.5-5.0); CALCIUM 7.4 mg/dL (8.8-10.2); CREATININE 1.1 mg/dL (0.5-0.9); POTASSIUM 3.2 mmol/L (3.5-5.1); TOTAL BILIRUBIN 0.39 mg/dL (0.20-1.00); TOTAL PROTEIN 6.4 g/dL (6.3-8.3)
--- NOTE | 2019-02-04 07:09 | EKG Report ---
Test Performed on : 02/04/2019 04:22:04 AM Test Reason : Elevated Troponin Blood Pressure : / mmHG Vent. Rate : 109 BPM Atrial Rate : 109 BPM P-R Int : 134 ms QRS Dur : 072 ms QT Int : 348 ms P-R-T Axes : 023 072 -76 degrees QTc Int : 468 ms Sinus tachycardia. Low voltage QRS T wave abnormality, consider inferior ischemia Abnormal ECG When compared with ECG of 04-FEB-2019 01:46, (Unconfirmed) Questionable change in QRS axis T wave inversion now evident in Inferior leads QT has shortened Confirmed by Norbert BARLOW, Jasson ([id number]) on 02/04/2019 8:19:39 AM
--- NOTE | 2019-02-04 07:10 | EKG Report ---
Test Performed on : 02/04/2019 01:46:30 AM Test Reason : EKG CHANGES Blood Pressure : / mmHG Vent. Rate : 085 BPM Atrial Rate : 085 BPM P-R Int : 136 ms QRS Dur : 076 ms QT Int : 436 ms P-R-T Axes : 038 -12 082 degrees QTc Int : 518 ms Normal sinus rhythm. Low voltage QRS Nonspecific T wave abnormality Prolonged QT Abnormal ECG When compared with ECG of 03-FEB-2019 10:47, (Unconfirmed) QT has lengthened Confirmed by Norbert BARLOW, Jasson ([id number]) on 02/04/2019 8:19:21 AM
[2019-02-04 07:15] LABS: MAGNESIUM 1.3 mg/dL (1.5-2.7); PHOSPHORUS 2.1 mg/dL (2.7-4.5)
[2019-02-04 07:27] LABS: CK INDEX 1.3 (0.0-2.5); CK-MB 6.71 ng/mL (0.0-5.0)
--- NOTE | 2019-02-04 07:40 | EKG Report ---
Test Performed on : 02/03/2019 9:49:06 PM Test Reason : ELEV. TROPONIN Blood Pressure : / mmHG Vent. Rate : 084 BPM Atrial Rate : 084 BPM P-R Int : 148 ms QRS Dur : 072 ms QT Int : 398 ms P-R-T Axes : 051 -13 099 degrees QTc Int : 470 ms Normal sinus rhythm. Low voltage QRS T wave abnormality, consider lateral ischemia Prolonged QT Abnormal ECG No previous ECGs available Confirmed by Norbert BARLOW, Jasson ([id number]) on 02/04/2019 8:18:27 AM
--- NOTE | 2019-02-04 07:41 | EKG Report ---
Test Performed on : 02/04/2019 00:50:30 AM Test Reason : ELEV TROPONIN Blood Pressure : / mmHG Vent. Rate : 084 BPM Atrial Rate : 084 BPM P-R Int : 116 ms QRS Dur : 072 ms QT Int : 412 ms P-R-T Axes : 025 -12 115 degrees QTc Int : 486 ms Sinus rhythm. with premature atrial complexes. Low voltage QRS Nonspecific T wave abnormality Prolonged QT Abnormal ECG No previous ECGs available Confirmed by Norbert BARLWO, Jasson ([id number]) on 02/04/2019 8:18:54 AM
--- NOTE | 2019-02-04 07:52 | Diag Imaging Result Doc PS360 ---
EXAM: CHEST-PORTABLE INDICATION: respiratory failure TECHNIQUE: One view COMPARISON: 02/03/2019 FINDINGS: Support tubes and lines are in stable positions. Inspiration is suboptimal. Atelectasis and/or infiltrate in the right upper lobe is unchanged. No new consolidation is identified. Cardiac silhouette is stable. IMPRESSION: Stable chest. Electronically signed by Low Dolan 02/04/2019 7:50 AM
--- NOTE | 2019-02-04 07:54 | EKG Report ---
Test Performed on : 02/04/2019 07:49:23 AM Test Reason : Elevated Troponin Blood Pressure : / mmHG Vent. Rate : 099 BPM Atrial Rate : 099 BPM P-R Int : 136 ms QRS Dur : 072 ms QT Int : 324 ms P-R-T Axes : 041 -09 189 degrees QTc Int : 415 ms Normal sinus rhythm. Low voltage QRS Nonspecific T wave abnormality Abnormal ECG When compared with ECG of 04-FEB-2019 04:22, (Unconfirmed) Questionable change in QRS axis QT has shortened Confirmed by Norbert BARLOW, Jasson ([id number]) on 02/04/2019 8:20:58 AM
[2019-02-04] MEDS: MAXIPIME 1 GM in NS 50 ML IV SCH ×2 (08:58→20:06)
[2019-02-04] MEDS: KEPPRA 500 MG in NS 100 ML IV SCH ×2 (08:58→20:10)
[2019-02-04] MEDS: LOVENOX SUBQ SCH (08:59)
[2019-02-04] MEDS ORDERED: PEPCID IV SCH (09:00)
[2019-02-04] MEDS ORDERED: MAGNESIUM SULFATE 4 GM/S.W.I. 4 GM/100 ML IVPB IV ONE (09:08)
[2019-02-04 10:31] LABS: CK INDEX 1.2 (0.0-2.5); CK-MB 6.02 ng/mL (0.0-5.0)
--- NOTE | 2019-02-04 10:49 | CARDIOLOGY CONSULTATION ---
DATE: 02/04/2019 CHIEF COMPLAINT ON PRESENTATION TO THE HOSPITAL: confusion. REASON FOR OUR CONSULTATION: Elevated troponin. HISTORY OF PRESENT ILLNESS: Ms. Brown is a 58-year-old white female, who previously saw Dr. Vasquez back in 2012. She has been a previous patient here at [facility] and is well known to the hospitalist service. She has a history of severe multiple sclerosis with paralysis and is bed- bound with contractures. During the initial evaluations here in the hospital, she was found to have a markedly elevated white blood cell count, an elevated troponin, and some like for light abnormalities. Her urinalysis was markedly abnormal with umd-iqdwwrbf-dd-count white blood cells. Ultimately during the course of the evaluation, she had a decline in her respiratory status and was placed on the ventilator. Currently, she is sedated and on pressors not able to provide any history. PAST MEDICAL HISTORY THROUGH CHART REVIEW: 1. She previously saw Dr. Vasquez and had a cardiomyopathy with an ejection fraction in the 30% to 35% range. 2. History of pulmonary embolus in 2011, treated at one point with Coumadin, but ultimately discontinued in 2012 secondary to completing therapy. 3. Diabetes. 4. Hypertension. 5. Hyperlipidemia. 6. Multiple sclerosis. 7. Seizure disorder. 8. History of multiple decubitus ulcers. SOCIAL HISTORY: She currently lives with her mother. She is cared via her mother as well as hospice care. No current tobacco or alcohol. FAMILY HISTORY: Significant for diabetes in her father, as well as heart disease in her father. REVIEW OF SYSTEMS: A 10 system review of systems is unable to be obtained secondary to the patient's current intubated and sedated status. PHYSICAL EXAMINATION: She had a temperature maximum of this hospitalization this morning at 3:52 of 100.4, most recent temperature of 100.2 degrees, heart rate is in the low 100s, blood pressure most recently was 94/63. Generally, she is sedated in no acute distress.HENT: Oropharynx is moist. Poor dentition. Eye examination shows pink conjunctivae and white sclerae. Her neck examination shows no obvious thyromegaly or thyroid tenderness. Cardiovascularly, she sounds to be in a regular rate and rhythm. She has no obvious murmurs and no S3. She has no lower extremity edema. Warm and well-perfused extremities. Her chest exam has mechanical breath sounds heard throughout all lung valerio. No increased work of breathing. She is breathing with the ventilator currently. Her abdomen is soft, nontender, nondistended. She has no obvious organomegaly. Her skin exam is warm and dry throughout. Neurological and psychiatric examinations were not able to be performed secondary to the current intubated and sedated status. DATA: Her chest x-ray on presentation shows poor expansion of the lungs, elevated right hemidiaphragm. No cardiomegaly. No obvious edema. Head CT demonstrated chronic ischemic microvascular disease with no evidence of acute findings. She had a number of EKGs. EKG on the 9 at 4:22 shows sinus tachycardia at 109 beats per minute, no obvious ischemic changes. EKG on the at 2149 shows sinus rhythm, no obvious ischemic changes on that EKG. EKG on the 9 at 1:46 shows sinus rhythm, no obvious acute ischemic changes. Nonspecific ST-T changes. EKG on the 9 at 12:50 a.m. shows sinus rhythm, nonspecific ST-T changes, no obvious acute ischemic changes. LABORATORY DATA: White count is 17.4 hematocrit is 40, platelet count is 298,000. Sodium was 138, potassium 3.2, BUN 33, creatinine 1.1. Magnesium level was 1.3. Her troponins have been elevated with the initial check of 0.365, peaked at 0.727, and it is now declining. Her albumin is 2.8. Urinalysis was reviewed. ASSESSMENT: Ms. Brown is a 58-year-old female with multiple medical problems as detailed above, who presented with septic shock, presumably of a urinary origin as well as a respiratory failure. PLAN: Her troponin elevations are likely [id number]-[id number] mismatch secondary to her respiratory issues and septic shock. We will ensure that she is on an aspirin which she is currently taking. I would recommend continued supportive care. Echocardiogram is currently pending. If this is unremarkable, then we would likely not proceed with further invasive evaluation. I would not recommend checking further troponins, given the nature of the event. I have discontinued these checks. EKGs have been unremarkable for any sort of acute ischemia. cc: Norm Hernández MD
--- NOTE | 2019-02-04 11:14 | EKG Report ---
Test Performed on : 02/03/2019 10:47:47 AM Test Reason : ED. NO EKG ORDER FOR MUSE Blood Pressure : / mmHG Vent. Rate : 088 BPM Atrial Rate : 088 BPM P-R Int : 148 ms QRS Dur : 068 ms QT Int : 382 ms P-R-T Axes : 052 002 045 degrees QTc Int : 462 ms Normal sinus rhythm. Nonspecific T wave abnormality Abnormal ECG When compared with ECG of 28-OCT-2018 04:18, No significant change was found Unconfirmed Result
--- NOTE | 2019-02-04 12:29 | EKG Report ---
Test Performed on : 02/04/2019 11:06:15 AM Test Reason : Elevated Troponin Blood Pressure : / mmHG Vent. Rate : 085 BPM Atrial Rate : 085 BPM P-R Int : 130 ms QRS Dur : 068 ms QT Int : 352 ms P-R-T Axes : 024 -11 229 degrees QTc Int : 418 ms Normal sinus rhythm. Low voltage QRS Cannot rule out Anterior infarct , age undetermined Abnormal ECG When compared with ECG of 04-FEB-2019 07:49, Minimal criteria for Anterior infarct are now present Confirmed by Norbert BARLOW, Jasson ([id number]) on 02/05/2019 8:56:15 AM
[2019-02-04 12:41] LABS: CK INDEX 1.2 (0.0-2.5); CK-MB 5.1 ng/mL (0.0-5.0)
--- NOTE | 2019-02-04 12:57 | ECHO REPORT ---
ORDER DATE: 02/04/2019 INTERPRETING PHYSICIAN: Dr. Florencio Green. ECHOCARDIOGRAPHIC MEASUREMENTS: Interventricular septum: 0.8 cm. Left ventricular posterior wall: 0.8 cm. Diastolic diameter: 3.9 cm. Left atrium: 3.1 cm. Aorta: 2.9 cm. SUMMARY OF THE 2-DIMENSIONAL IMAGIN. Aortic valve leaflets are trileaflet. Mitral valve was normal. Tricuspid valve was normal. Pulmonic valve was normal. 2. Technically suboptimal study. 3. There is no aortic stenosis or regurgitation. There is mild mitral regurgitation, mild tricuspid regurgitation. Peak velocity across the tricuspid valve was 2.8 m/sec. Pulmonary artery systolic pressure of 41 mmHg. 4. Normal left ventricular cavity size with severely reduced systolic function. Estimated ejection fraction of 20%. She has a Takotsubo cardiomyopathy. Ultrasound was used to better delineate endocardial structures. There was no obvious intracardiac mass or thrombus seen. 5. There is no pericardial effusion. cc: Florencio Green MD
[2019-02-04] MEDS ORDERED: ROCEPHIN 1 GM in NS 50 ML IV SCH (15:00)
[2019-02-04] MEDS ORDERED: POTASSIUM CHLORIDE 40 MEQ/SWI 40 MEQ/100 ML IVPB IV ONE (15:07)
[2019-02-04] MEDS ORDERED: MAGNESIUM SULFATE 2 GM/S.W.I. 2 GM/50 ML IVPB IV ONE (15:08)
[2019-02-04] MEDS ORDERED: POTASSIUM PHOSPHATE 40 MEQ in NS 250 ML IV ONE (15:10)
[2019-02-04] MEDS ORDERED: PROTONIX IV SCH (15:15)
[2019-02-04] MEDS ORDERED: SODIUM CHLORIDE 0.9% INJ SCH ×2 (15:15→15:30)
--- NOTE | 2019-02-04 15:30 | PROGRESS NOTE ---
DATE: 02/04/2019 SUBJECTIVE: Patient is currently intubated as well as sedated. OBJECTIVE: Vital signs: Temperature 100.4 degrees, pulse 84, respiratory is 21, blood pressure 103/71, oxygen saturation is 99%. HEENT: She is atraumatic, normocephalic. She does have an ET tube as well as NG tube in place. Cardiovascular: S1, S2. Respiratory: Has evidence of good air entry bilaterally. Abdomen: Soft, nontender. Extremities: She has wound sites in both lower extremities dressed with evidence of edema. LABORATORY DATA: WBC is 17.41, hematocrit is 40.5 with a platelet count of 298,000. ABG 7.6 /34/123 /99%. Sodium is 138, potassium 3.2, chloride is 96, bicarb 20, BUN is 33, creatinine is 1.1, blood glucose is 335, phosphorus is 21, magnesium is 1.3. Troponin level is elevated at 0.683. Urine culture positive for yeast. ASSESSMENT AND PLAN: 1. Acute respiratory failure. Continue ventilator support, pulmonary team following. Today's chest x-ray shows evidence of atelectasis and/or infiltrates in the right upper lobe. No new consolidation identified. 2. Septic shock. Maintain patient on intravenous fluids as well as antibiotics. Follow up on culture report. 3. Funguria. Patient on antifungal agent. 4. Multiple electrolyte abnormalities including hypokalemia, hypophosphatemia, hypomagnesemia and hypocalcemia, will replace all the electrolytes accordingly. In light of low calcium as well as phosphorus level will check 25 hydroxy vitamin D level which I suspect will be low. 5. Hds-EJ-mqlkzhjfi myocardial infarction. Cardiology following. 6. Diabetes mellitus. Monitor blood sugar levels, maintain patient on sliding scale insulin. 7. Multiple decubitus ulcer. Continue local wound care. 8. History of suprapubic catheter in place. Aware. 9. Deep vein thrombosis prophylaxis Lovenox. 10. Gastrointestinal prophylaxis PPI. cc: Brayan Henriquez MD [facility]
[2019-02-04] MEDS: DIFLUCAN 100 MG/NS 100 MG/50 ML IVPB IV SCH (15:35)
[2019-02-04] MEDS: PEPCID IV SCH ×2 (15:42→20:08)
[2019-02-04] MEDS: SANTYL OINT TOP SCH (15:47)
--- NOTE | 2019-02-04 16:12 | EKG Report ---
Test Performed on : 02/04/2019 4:04:30 PM Test Reason : Elevated Troponin Blood Pressure : / mmHG Vent. Rate : 088 BPM Atrial Rate : 088 BPM P-R Int : 152 ms QRS Dur : 074 ms QT Int : 460 ms P-R-T Axes : 035 -07 206 degrees QTc Int : 556 ms Normal sinus rhythm. Low voltage QRS T wave abnormality, consider anterior ischemia Abnormal ECG When compared with ECG of 04-FEB-2019 11:06, (Unconfirmed) QT has lengthened Confirmed by Norbert BARLOW, Jasson ([id number]) on 02/05/2019 8:57:30 AM
[2019-02-04 18:49] LABS: CK INDEX 1.2 (0.0-2.5); CK-MB 4.34 ng/mL (0.0-5.0)
[2019-02-04] MEDS: BACTROBAN OINTMENT TOP SCH (20:09)
--- NOTE | 2019-02-04 20:21 | PULMONOLOGY PROGRESS NOTE ---
DATE: 02/04/2019 SUBJECTIVE: The patient appears comfortable on mechanical ventilation. She remains on vasopressors. OBJECTIVE: Vital Signs: Maximum temperature in the last 24 hours 100.4 degrees Fahrenheit, BP 101/68, heart rate 92, respiratory rate 10, oxygen saturation 100%. HEENT: Pupils are equal and reactive. Oropharynx appears clear. Neck: Supple. Chest: Reveals coarse rhonchi bilaterally. Cardiac exam: S1-S2. Abdomen: Obese and soft. Genitourinary: Suprapubic catheter is in place. LABORATORIES: White blood count 17.4, hemoglobin 12.9, platelet count 298,000. Sodium 138, potassium 3.2, chloride 96, bicarbonate 28, BUN 33, creatinine 1.1. Chest x-ray reveals stable infiltrate in the right upper lobe with shallow inspiration. IMPRESSION: A 58-year-old with: 1. Acute hypoxemic respiratory failure. 2. Pneumonia. 3. Septic shock. 4. Urinary tract infection. 5. Altered mental status. 6. Severe debilitation previously on hospice before this admission. PLAN: 1. Continue broad-spectrum antibiotics. 2. Continue full ventilatory support with ventilator adjustments for alkalemia. 3. Continue DVT prophylaxis. 4. Continue gastric acid suppression. 5. Place NG tube for possible feeding. 6. Agree with ongoing end of life discussions with the family, who continue to pursue aggressive care. Time spent in critical care management: 30+ minutes cc: Santana Alarcon MD [facility]
[2019-02-05] MEDS: LEVOPHED 8 MG in D5 1/2 NS 250 ML IV SCH ×2 (01:19→13:23)
[2019-02-05] MEDS: ZYVOX 600 MG/D5W 600 MG/300 ML IVPB IV SCH ×2 (01:19→13:24)
[2019-02-05] MEDS: DIPRIVAN 1% 1,000 MG/100 ML BOTTLE IV SCH ×5 (01:19→21:38)
[2019-02-05] MEDS: DUONEB (A & A) INH SCH ×6 (03:00→23:35)
[2019-02-05] MEDS: HUMULIN R SUBQ SCH ×5 (03:20→23:21)
[2019-02-05 04:47] LABS: ALLEN TEST YES; BE 3.2 mmoll (-3.0-3.0); BLOOD TYPE ARTERIAL; HCO3-(ACT) 27.4 mmoll (20.0-26.0); METHB 0.8 % (0.0-1.5); O2(CT) 17.2 mL/dL (15.0-23.0); O2HB 95.8 % (95.0-99.0); PCO2(98.6) 42 mmHg (35-45); PO2(98.6) 106 mmHg (60-100); SAMPLE BLOOD; SAO2 96.6 % (95.0-100.0); SRATE 8 BPM; THB 12.7 g/dL (11.5-17.4); TVOL 600 mL; pH(98.6) 7.43 (7.35-7.45)
[2019-02-05 04:48] LABS: MODALITY VENTILATOR
[2019-02-05] MEDS ORDERED: VANCOMYCIN 1,250 MG in NS 250 ML IV SCH (05:00)
[2019-02-05 05:29] LABS: AGAP 11; ALB/GLOB RATIO 0.7; ALBUMIN 2.5 g/dL (3.5-5.0); ALKALINE PHOSPHATASE 80 U/L (32-104); BUN 14 mg/dL (8-22); CALCIUM 7.5 mg/dL (8.8-10.2); CHLORIDE 100 mmol/L (98-107); COSMO 286; CREATININE 0.7 mg/dL (0.5-0.9); ESTIMATED GFR > 60; GLUCOSE 308 mg/dL (70-104); GOT 28 U/L (10-30); GPT 15 U/L (10-36); SODIUM 137 mmol/L (136-145); TCO2 26 mmol/L (25-35); TOTAL BILIRUBIN 0.35 mg/dL (0.20-1.00)
[2019-02-05] MEDS ORDERED: POTASSIUM CHLORIDE 40 MEQ/SWI 40 MEQ/100 ML IVPB IV ONE ×2 (06:24→14:07)
--- NOTE | 2019-02-05 06:53 | Diag Imaging Result Doc PS360 ---
EXAM: KUB ABDOMEN HISTORY: distention TECHNIQUE: Abdomen single view COMPARISON: None. FINDINGS: There is stool throughout the colon. No bowel obstruction. No organomegaly. The gallbladder has been removed. No abnormal abdominal calcifications. A nasogastric tube enters the stomach. Long-standing arthritis to the right hip. IMPRESSION: Prominent constipation. Electronically signed by Herbie Banerjee 02/05/2019 6:51 AM
--- NOTE | 2019-02-05 07:02 | Diag Imaging Result Doc PS360 ---
EXAM: CHEST-PORTABLE HISTORY: respiratory failure TECHNIQUE: Portable chest single view COMPARISON: 02/04/2019 FINDINGS: No change in the endotracheal tube, left jugular line, or nasogastric tube. The right hemidiaphragm is elevated. The lungs are slightly better expanded on the current exam. Perihilar markings are slightly less pronounced. No pleural effusions identified. IMPRESSION: Mild interval improvement. Electronically signed by Herbie Banereje 02/05/2019 7:00 AM
--- NOTE | 2019-02-05 07:24 | EKG Report ---
Test Performed on : 02/05/2019 07:09:02 AM Test Reason : Elevated Troponin Blood Pressure : / mmHG Vent. Rate : 088 BPM Atrial Rate : 088 BPM P-R Int : 172 ms QRS Dur : 062 ms QT Int : 422 ms P-R-T Axes : 048 -19 259 degrees QTc Int : 510 ms Normal sinus rhythm. Low voltage QRS Cannot rule out Anterior infarct , age undetermined T wave abnormality, consider lateral ischemia Prolonged QT Abnormal ECG When compared with ECG of 04-FEB-2019 16:04, (Unconfirmed) No significant change was found Confirmed by Norbert BARLOW, Jasson ([id number]) on 02/05/2019 8:59:25 AM
[2019-02-05] MEDS ORDERED: GOLYTELY NG ONE (08:02)
[2019-02-05] MEDS: NS 1,000 ML IV SCH ×2 (08:05→16:01)
[2019-02-05] MEDS: ASPIRIN PR SCH (08:05)
[2019-02-05] MEDS: MAXIPIME 1 GM in NS 50 ML IV SCH ×2 (08:06→19:56)
[2019-02-05] MEDS: LOVENOX SUBQ SCH (08:06)
[2019-02-05] MEDS: BACTROBAN OINTMENT TOP SCH ×2 (08:07→20:08)
[2019-02-05] MEDS: KEPPRA 500 MG in NS 100 ML IV SCH ×2 (08:07→20:03)
[2019-02-05] MEDS: SANTYL OINT TOP SCH (08:07)
--- NOTE | 2019-02-05 13:57 | CARDIOLOGY PROGRESS NOTE ---
DATE: 02/05/2019 SUBJECTIVE: Ms. Brown is a little bit more responsive today. She moves and grimaces to physical and verbal stimuli, but she does not follow any commands. She continues to be on the ventilator and is sedated. OBJECTIVE: She has been afebrile today. Heart rate is 97, her blood pressure is 94/69. She continues to be on a low dose of pressor. She has a positive fluid balance of 6.2 L with urine output of 3.4 L. Generally, she is in no acute distress. Cardiovascularly, she sounds to be in a regular rate and rhythm. She has no obvious murmurs. She has no S3. She has no lower extremity edema. Chest is clear bilaterally. She has no increased work of breathing. Her abdomen is soft, nontender, nondistended. She has no obvious organomegaly. PERTINENT DATA: She had an EKG this morning around 7 a.m. that demonstrated some early suggestion of some ST-elevation in the anterior and high lateral leads. This was followed soon after by another EKG which showed complete resolution. She had an echocardiogram yesterday demonstrating an ejection fraction of 20% with suggestion of a takotsubo cardiomyopathy. She has not had a CBC today. Her lactate is 1.5. Her sodium is 137, potassium is 3, BUN 14, creatinine 0.7, albumin is 2.5. ASSESSMENT: 1. Ms. Brown is a 58-year-old female, who presented in sepsis. 2. She has a presumed takotsubo cardiomyopathy. 3. She has severe multiple sclerosis and is bed-bound. PLAN: At this point, we will treat the patient conservatively. She is on aspirin therapy. Her ejection fraction is markedly reduced. She has had a positive fluid balance and is currently on 125 mL of normal saline an hour. She had her electrolytes repleted yesterday, as well as today. She is on antibiotics. She had a chest x-ray today, showing mild interval improvement. We may need to consider a dose of diuretic in the near future if her oxygenation significantly worsens. cc: Norm Hernández MD
--- NOTE | 2019-02-05 14:24 | PROGRESS NOTE ---
DATE: 02/05/2019 SUBJECTIVE: The patient is currently intubated as well. OBJECTIVE: Vital Signs: Temperature 97 degrees, pulse 76, respirations 20, blood pressure is 120/81, and oxygen saturation is 100%. Cardiovascular: S1, S2. Respiratory: Good air entry bilaterally. Abdomen: Full. Nontender. No masses. Extremities: There is 1+ edema in the lower extremities. Wound site is dressed as well. LABORATORY: ABG 7.43/42/106/95/96.6. Sodium is 137, potassium 3.0, chloride is 100, bicarb 26, BUN is 14 and creatinine 0.7. ASSESSMENT AND PLAN: 1. Acute respiratory failure. Continue ventilator support. Pulmonary team following. 2. Septic shock. Maintain patient on intravenous fluids. Pressors if needed, and also antibiotics. 3. Funguria. Continue antifungal agent. 4. Multiple electrolyte abnormalities including hypokalemia. Replace electrolytes. 5. Non ST myocardial infarction. Cardiology following. 6. Diabetes mellitus. Continue blood sugar monitoring as well as sliding scale insulin. 7. History of suprapubic catheter in place. Aware. 8. Deep vein thrombosis prophylaxis. Lovenox. 9. Gastrointestinal prophylaxis. Proton pump inhibitor. cc: Brayan Henriquez MD
[2019-02-05] MEDS: DIFLUCAN 100 MG/NS 100 MG/50 ML IVPB IV SCH (14:41)
[2019-02-05] MEDS: PEPCID IV SCH (14:41)
--- NOTE | 2019-02-05 21:03 | PULMONOLOGY PROGRESS NOTE ---
DATE: 02/05/2019 SUBJECTIVE: The patient remains on mechanical ventilation. She remains on Levophed, but it was decreasing by this afternoon. OBJECTIVE: Vital Signs: BP 90/58, heart rate 97, respiratory rate 11, oxygen saturation 97% on mechanical ventilation. HEENT: Pupils are equal and reactive. Oropharynx appears clear. Neck: Supple. Chest: Reveals coarse rhonchi bilaterally. Cardiac exam: S1-S2. Abdomen: Firm in all 4 quadrants. Extremities: Reveal +1 edema. She has flaccidity to the lower extremities. LABORATORIES: KUB reveals significant amount of stool throughout the entire colon. Chest x-ray reveals endotracheal tube in good position. Elevation of the right hemidiaphragm, slight improvement of the lung valerio with slight decrease in perihilar markings. White blood count 17,000, hemoglobin 12.9, platelet count 298,000. Sodium 137, potassium 3.0, chloride 90, bicarbonate 26, BUN 14, creatinine 0.7, glucose 308. Arterial blood gas reveals a pH 7.43, pCO2 of 42, pO2 of 106. IMPRESSION: A 58-year-old with: 1. Acute hypoxemic respiratory failure. 2. Pneumonia. 3. Septic shock with ongoing vasopressor requirements. 4. Severe constipation. 5. Urinary tract infection. 6. Altered mental status. 7. Severe debilitation. PLAN: 1. Continue to wean vasopressor support as tolerated. 2. Daily ventilator weaning attempts. She failed this morning due to weakness. 3. Continue DVT prophylaxis. 4. Continue gastric acid suppression. 5. We will begin a large volume Colyte for her severe constipation. 6. Agree with palliative care consultation. Time spent in critical care management: 30+ minutes cc: Santana Alarcon MD [facility]
[2019-02-06] MEDS: NS 1,000 ML IV SCH ×5 (00:24→23:42)
[2019-02-06] MEDS: HUMULIN R SUBQ SCH ×6 (00:24→20:22)
[2019-02-06] MEDS: PEPCID IV SCH ×2 (02:32→14:46)
[2019-02-06] MEDS: SODIUM CHLORIDE 0.9% INJ SCH (02:32)
[2019-02-06] MEDS: DIPRIVAN 1% 1,000 MG/100 ML BOTTLE IV SCH ×2 (02:33→05:54)
[2019-02-06] MEDS: ZYVOX 600 MG/D5W 600 MG/300 ML IVPB IV SCH ×2 (02:33→14:46)
[2019-02-06] MEDS: DUONEB (A & A) INH SCH ×6 (03:46→23:40)
[2019-02-06 04:49] LABS: ALLEN TEST YES; BE 1.5 mmoll (-3.0-3.0); BLOOD TYPE ARTERIAL; HCO3-(ACT) 26.1 mmoll (20.0-26.0); O2(CT) 15.6 mL/dL (15.0-23.0); O2HB 98.1 % (95.0-99.0); PCO2(98.6) 32 mmHg (35-45); PO2(98.6) 146 mmHg (60-100); SAMPLE BLOOD; SAO2 99.2 % (95.0-100.0); SRATE 8 BPM; THB 11.1 g/dL (11.5-17.4); TVOL 600 mL; pH(98.6) 7.49 (7.35-7.45)
[2019-02-06 04:51] LABS: MODALITY VENTILATOR
[2019-02-06 05:12] LABS: BASO# 0.05 X1000 (0.0-0.2); BASO% 0.5 % (0.0-0.8); EOS# 0.75 X1000 (0.0-0.7); EOS% 6.8 % (0.0-10.0); HEMATOCRIT 35.1 % (37.0-47.0); IMM GRAN# 0.02 X1000 (0.0-0.04); IMM GRAN% 0.2 % (0.0-0.5); LYMPH# 4.08 X1000 (1.2-3.4); LYMPH% 36.8 % (20.5-51.1); MCH 28.6 PG (27-31); MCHC 31.3 g/dL (33-37); MCV 91.2 FL (81-99); MONO# 0.87 X1000 (0.11-0.59); MONO% 7.9 % (1.7-9.3); MPV 11.2 FL (7.4-10.4); NEUT# 5.31 X1000 (1.4-6.5); NEUT% 47.8 % (42.2-75.2); PLT 227 X1000 (130-400); RBC 3.85 XMIL (4.2-5.4); RDW 16.1 % (11.5-14.5); WBC 11.08 X1000 (4.8-10.8)
[2019-02-06 05:41] LABS: AGAP 10; ALB/GLOB RATIO 0.8; ALBUMIN 2.3 g/dL (3.5-5.0); ALKALINE PHOSPHATASE 113 U/L (32-104); BUN 9 mg/dL (8-22); CALCIUM 7.2 mg/dL (8.8-10.2); CHLORIDE 106 mmol/L (98-107); COSMO 286; CREATININE 0.5 mg/dL (0.5-0.9); ESTIMATED GFR > 60; GLUCOSE 167 mg/dL (70-104); GOT 40 U/L (10-30); GPT 21 U/L (10-36); POTASSIUM 3.6 mmol/L (3.5-5.1); SODIUM 142 mmol/L (136-145); TCO2 26 mmol/L (25-35); TOTAL BILIRUBIN 0.45 mg/dL (0.20-1.00); TOTAL PROTEIN 5.3 g/dL (6.3-8.3)
[2019-02-06 05:49] LABS: MAGNESIUM 1.6 mg/dL (1.5-2.7); PHOSPHORUS 2.7 mg/dL (2.7-4.5)
--- NOTE | 2019-02-06 07:13 | Diag Imaging Result Doc PS360 ---
EXAM: CHEST-PORTABLE 02/06/2019 HISTORY: respiratory failure TECHNIQUE: AP portable at 0524 COMMENT: There is an endotracheal tube with its tip at the thoracic inlet. There is a left internal jugular central venous catheter with its tip in the superior vena cava. There is atelectasis present bilaterally particularly in the right upper lobe. Overall the inspiration is less optimal than on 02/05/2019. IMPRESSION: Poor inspiration. Subsegmental atelectasis. Electronically signed by Elia Mills 02/06/2019 7:11 AM
[2019-02-06] MEDS: SANTYL OINT TOP SCH (08:29)
[2019-02-06] MEDS: BACTROBAN OINTMENT TOP SCH ×2 (08:29→20:20)
[2019-02-06] MEDS: MAXIPIME 1 GM in NS 50 ML IV SCH ×2 (08:29→20:21)
[2019-02-06] MEDS: KEPPRA 500 MG in NS 100 ML IV SCH ×2 (08:30→20:21)
[2019-02-06] MEDS: ASPIRIN PR SCH (08:30)
[2019-02-06] MEDS: LOVENOX SUBQ SCH (08:30)
--- NOTE | 2019-02-06 09:09 | CARDIOLOGY PROGRESS NOTE ---
DATE: 02/06/2019 SUBJECTIVE: Ms. Brown is sedated. She continues on the ventilator. Not responsive to physical stimuli. OBJECTIVE: Vitals: She is afebrile. Heart rate is 78. She appears to be in sinus on telemetry. Her most recent systolics appear to be anywhere from the 70s to 80s. General: No acute distress. Cardiovascular: She sounds to be in a regular rate and rhythm. She has no obvious murmurs. She has no S3. She has 1+ bilateral lower extremity edema and warm and well perfused lower extremities. Chest: Notable for diffuse mechanical breath sounds heard throughout. She is not breathing above the ventilator presently. Abdomen: Soft, nontender. Bowel sounds were heard in all quadrants, somewhat firm. LABS: White count is 11, hematocrit 35, platelet count 227,000. Sodium is 142, potassium 3.6. Her BUN is 9, creatinine 0.5, albumin 2.3. ASSESSMENT: Ms. Brown is a 58-year-old female who presented with confusion and was found to be septic. PLAN: I do not have any acute recommendations at present. Patient continues to be hypotensive requiring pressors. She would not tolerate the addition of heart failure medications at this point. She seems to be perfusing as she has warm extremities and her renal function is preserved. Her chest x-ray is not demonstrating any clear evidence of significant fluid overload and she seems to be oxygenating well. We may in the future need to consider diuretics. cc: Norm Hernández MD
[2019-02-06 10:08] LABS: BLOOD TYPE ARTERIAL; SAMPLE BLOOD
[2019-02-06 10:09] LABS: BE 1.1 mmoll (-3.0-3.0); HCO3-(ACT) 25.7 mmoll (20.0-26.0); PCO2(98.6) 37 mmHg (35-45); PO2(98.6) 75 mmHg (60-100); SAO2 95.2 % (95.0-100.0); pH(98.6) 7.44 (7.35-7.45)
[2019-02-06 10:10] LABS: ALLEN TEST YES; METHB 0.5 % (0.0-1.5); MODALITY VENTILATOR; O2HB 94.4 % (95.0-99.0)
--- NOTE | 2019-02-06 11:19 | EKG Report ---
Test Performed on : 02/05/2019 07:41:57 AM Test Reason : CCU. No order in [place] Blood Pressure : / mmHG Vent. Rate : 114 BPM Atrial Rate : 114 BPM P-R Int : 176 ms QRS Dur : 076 ms QT Int : 332 ms P-R-T Axes : 051 -16 056 degrees QTc Int : 457 ms Age and gender specific ECG analysis Sinus tachycardia. Low voltage QRS Cannot rule out Anterior infarct (cited on or before 05-FEB-2019) Lateral injury pattern ACUTE VT / STEMI Abnormal ECG When compared with ECG of 05-FEB-2019 07:09, (Unconfirmed) ST elevation now present in Anterolateral leads Nonspecific T wave abnormality no longer evident in Inferior leads T wave inversion no longer evident in Anterior leads Confirmed by Norbert BARLOW, Jasson ([id number]) on 02/06/2019 6:02:16 PM
--- NOTE | 2019-02-06 11:19 | EKG Report ---
Test Performed on : 02/05/2019 07:54:29 AM Test Reason : CCU. No order in [place] Blood Pressure : / mmHG Vent. Rate : 120 BPM Atrial Rate : 120 BPM P-R Int : 176 ms QRS Dur : 074 ms QT Int : 330 ms P-R-T Axes : 048 -16 -04 degrees QTc Int : 466 ms Sinus tachycardia. Low voltage QRS Cannot rule out Anterior infarct (cited on or before 05-FEB-2019) Abnormal ECG When compared with ECG of 05-FEB-2019 07:41, (Unconfirmed) Serial changes of evolving Anterior infarct present Confirmed by Norbert BARLOW, Jasson ([id number]) on 02/06/2019 6:02:38 PM
[2019-02-06] MEDS ORDERED: LOPRESSOR IV ONE (13:15)
[2019-02-06] MEDS: DIFLUCAN 100 MG/NS 100 MG/50 ML IVPB IV SCH (14:46)
--- NOTE | 2019-02-06 18:18 | PROGRESS NOTE ---
DATE: 02/06/2019 SUBJECTIVE: Patient has now been extubated. She is awake, not in any obvious distress. OBJECTIVE: Vital signs: Temperature is 98.2 degrees, pulse 132, respirations 16, blood pressure is 106/60, oxygen saturation is 98%. HEENT: She is atraumatic, normocephalic. Cardiovascular: S1, S2. Respiratory: Has evidence of good air entry bilaterally. Abdomen: Soft, nontender. No masses. Extremities: Have about 2+ edema in the lower extremities. Wound sites dressed. Central nervous system: No obvious focal deficits noted. LABORATORY DATA: WBC 11.08, hematocrit 35.1, with a platelet count of 227,000. ABG, 7.44/37/75/95.7. ASSESSMENT AND PLAN: 1. Acute respiratory failure. Patient has recently been extubated. We will continue to follow up on her respiratory status. Continue pulmonary management. 2. Septic shock. Maintain patient on intravenous fluids. Use pressors if needed. Continue antibiotics. 3. Funguria. Aware. 4. Multiple electrolyte abnormalities. Replace electrolytes. 5. Non-ST elevation myocardial infarction. Cardiology following. 6. Diabetes mellitus. Continue blood sugar monitoring as well as sliding scale insulin. 7. History of suprapubic catheter in place. Aware. 8. Deep vein thrombosis prophylaxis. Lovenox. 9. Gastrointestinal prophylaxis. PPI. cc: Brayan Henriquez MD [facility]
[2019-02-06] MEDS: CARDIZEM 125/NS 125 MG/125 ML IVPB IV SCH (18:25)
--- NOTE | 2019-02-06 20:18 | PULMONOLOGY PROGRESS NOTE ---
DATE: 02/06/2019 SUBJECTIVE: The patient is awake, alert. She does follow commands on mechanical ventilation. She remains on vasopressors. OBJECTIVE: Vital signs: BP 97/63, heart rate 114, respiratory rate 10, oxygen saturation 96%. HEENT: Pupils are equal and reactive. Oropharynx is clear. Neck: Supple. Chest: Reveals scattered rhonchi bilaterally with decreased breath sounds right base. Cardiac exam: S1, S2. Abdomen: Soft with positive bowel sounds. Extremities: Without change. LABORATORIES: White blood count is down at 11.08, hemoglobin 11.0, platelet count 227,000. Sodium 142, potassium 3.6, chloride 106, bicarbonate 26, BUN 9, creatinine 0.5. Arterial blood gas: pH 7.49, pCO2 of 32, PO2 of 146. IMPRESSION: A 58-year-old with: 1. Acute hypoxemic respiratory failure. 2. Pneumonia. 3. Septic shock. 4. Multiple sclerosis with severe debilitation. 5. Severe constipation with several bowel movements following Colyte. 6. Urinary tract infection. 7. Altered mental status within significant improvement. PLAN: 1. Spontaneous breathing trial this morning. Currently she is doing well on minimal support. Anticipate patient extubation today. 2. Continue antibiotics. 3. Wean vasopressors as tolerated. 4. Palliative care/end of life discussions in progress. TIME SPENT IN CRITICAL CARE MANAGEMENT: 30+ minutes. cc: Santana Alarcon MD
[2019-02-07] MEDS: ZYVOX 600 MG/D5W 600 MG/300 ML IVPB IV SCH ×2 (02:55→14:20)
[2019-02-07] MEDS: PEPCID IV SCH ×2 (02:56→14:44)
[2019-02-07] MEDS: HUMULIN R SUBQ SCH ×6 (03:08→21:39)
[2019-02-07] MEDS: DUONEB (A & A) INH SCH ×6 (03:40→23:32)
[2019-02-07] MEDS: CARDIZEM 125/NS 125 MG/125 ML IVPB IV SCH ×2 (05:07→21:41)
[2019-02-07 05:44] LABS: ALLEN TEST YES; BE 0.1 mmoll (-3.0-3.0); BLOOD TYPE ARTERIAL; HCO3-(ACT) 24.9 mmoll (20.0-26.0); METHB 0.6 % (0.0-1.5); O2(CT) 14.2 mL/dL (15.0-23.0); PCO2(98.6) 32 mmHg (35-45); PO2(98.6) 70 mmHg (60-100); SAMPLE BLOOD; SAO2 94.9 % (95.0-100.0); THB 10.7 g/dL (11.5-17.4); pH(98.6) 7.47 (7.35-7.45)
[2019-02-07 05:45] LABS: MODALITY COOL AEROSOL
[2019-02-07 06:24] LABS: AGAP 11; ALB/GLOB RATIO 0.7; ALBUMIN 2.4 g/dL (3.5-5.0); ALKALINE PHOSPHATASE 116 U/L (32-104); BUN 6 mg/dL (8-22); CHLORIDE 107 mmol/L (98-107); COSMO 283; CREATININE 0.5 mg/dL (0.5-0.9); ESTIMATED GFR > 60; GLUCOSE 146 mg/dL (70-104); GOT 37 U/L (10-30); GPT 25 U/L (10-36); POTASSIUM 3.1 mmol/L (3.5-5.1); SODIUM 142 mmol/L (136-145); TCO2 24 mmol/L (25-35); TOTAL BILIRUBIN 0.71 mg/dL (0.20-1.00); TOTAL PROTEIN 5.7 g/dL (6.3-8.3)
[2019-02-07 06:27] LABS: CALCIUM 6.9 mg/dL (8.8-10.2)
[2019-02-07] MEDS: NS 1,000 ML IV SCH ×3 (06:47→14:41)
[2019-02-07] MEDS ORDERED: CALCIUM GLUCONATE 2 GM in NS 100 ML IV ONE (07:00)
--- NOTE | 2019-02-07 07:24 | Diag Imaging Result Doc PS360 ---
EXAM: CHEST-PORTABLE INDICATION: respiratory failure TECHNIQUE: One view COMPARISON: 02/06/2019 FINDINGS: There has been interval extubation. A left central line is in stable position. Bilateral atelectasis has improved somewhat. No new consolidation is identified. Cardiac silhouette is stable. IMPRESSION: Interval extubation and improvement in atelectasis. Electronically signed by Low Dolan 02/07/2019 7:21 AM
[2019-02-07] MEDS: MAXIPIME 1 GM in NS 50 ML IV SCH ×2 (07:53→21:38)
[2019-02-07] MEDS: KEPPRA 500 MG in NS 100 ML IV SCH ×2 (09:22→21:37)
[2019-02-07] MEDS: ASPIRIN PR SCH (09:23)
[2019-02-07] MEDS: LOVENOX SUBQ SCH (09:23)
[2019-02-07] MEDS: BACTROBAN OINTMENT TOP SCH ×2 (09:31→21:40)
[2019-02-07] MEDS: SANTYL OINT TOP SCH (09:32)
[2019-02-07] MEDS ORDERED: POTASSIUM CHLORIDE 40 MEQ/SWI 40 MEQ/100 ML IVPB IV ONE (11:12)
[2019-02-07] MEDS ORDERED: CALCIUM CHLORIDE 2 GM in NS 100 ML IV ONE (11:13)
--- NOTE | 2019-02-07 15:31 | PROGRESS NOTE ---
DATE: 02/07/2019 SUBJECTIVE: The patient is resting in bed. Not in any obvious distress. OBJECTIVE: Vital signs: Temperature 99.5 degrees, pulse 112, respiratory 16, blood pressure is 124/70. Oxygen saturation is 98%. HEENT: Atraumatic, normocephalic. Cardiovascular: S1, S2. Respiratory: Has evidence of good air entry bilaterally. Abdomen: Soft. Full. Nontender. No masses felt. Extremities: Has 2+ edema in the lower extremities with the wound site dressed. Central Nervous System: No obvious focal deficit noted. LABORATORY DATA: ABG 7.47/32/70/94.9%. Sodium is 142, potassium 3.1, chloride is 107, bicarb 24, BUN 6, creatinine 0.5. Calcium level is 6.9. X-ray chest shows improvement in atelectasis. ASSESSMENT AND PLAN: 1. Acute respiratory failure. The patient has now been extubated. Will continue to follow up on her respiratory status. Today's chest x-ray shows improvement in atelectasis. Arterial blood gases shows slight evidence of respiratory alkalosis. Pulmonary team is currently managing. 2. Septic shock. Maintain the patient on intravenous fluids as well as antibiotics and use pressors if needed. 3. Atrial fibrillation with rapid ventricular rate. Maintain the patient on Cardizem. 4. Non ST elevation myocardial infarction. Cardiology following. 5. Multiple electrolyte abnormalities. Replace potassium as well as calcium. 6. Diabetes mellitus. Continue blood sugar monitor as well as sliding scale insulin. 7. Deep vein thrombosis prophylaxis. Lovenox. 8. Gastrointestinal prophylaxis. Proton pump inhibitor. cc: Brayan Henriquez MD [facility]
--- NOTE | 2019-02-07 16:22 | CARDIOLOGY PROGRESS NOTE ---
DATE: 02/07/2019 SUBJECTIVE: Ms. Brown has since been extubated. She has no pain complaints. Breathing is not labored. OBJECTIVE: Vital Signs: On physical examination, afebrile. Heart rates are in the low 100s. She is on a low dose Cardizem drip. Blood pressure 129/78. Her I's and O's have been positive over the last couple of days. General: She is in no acute distress. Cardiovascular: She is in a tachycardic and regular rhythm. She has no obvious murmurs. She has no S3. She has no lower extremity edema. Chest: Exam sounds clear bilaterally. She has no increased work of breathing. Abdomen: Soft, nontender, nondistended. She has no obvious organomegaly. Skin Exam: Warm and dry throughout without any rashes. Neurological: She is moving all extremities well. She has no lateralizing deficits. PERTINENT DATA: Her sodium is 142, potassium 3.1. BUN 6, creatinine 0.5, albumin is 2.4. She had a chest x-ray performed today which demonstrated improvement in atelectasis, no consolidations. Her oxygen saturations are adequate. ASSESSMENT: Ms. Brown is a 58-year-old female with confusion and found to be septic. She has also been suggested to have a takotsubo-type cardiomyopathy by her echocardiogram. PLAN: We have initiated Coreg 3.125 b.i.d. as well as losartan at 25 mg daily. Losartan is a home medication; Coreg is a new medication for her. Hopefully, we can preferentially down titrate the diltiazem. She continues to have positive fluid balances, which in some cases seemed to be erroneously elevated due to a GoLYTELY prep that she had. Her chest x-ray appears clear, and she has not had any worsening in her oxygenation. So, presently she does not seem in urgent need of re-addition of diuretics, but likely in the morning I would consider adding back in some oral furosemide. She is currently n.p.o., so we will leave her on the low-dose IV fluids. cc: Norm Hernández MD
[2019-02-07] MEDS: COREG PO SCH (21:37)
[2019-02-08] MEDS: HUMULIN R SUBQ SCH ×6 (01:17→20:47)
[2019-02-08] MEDS: ZYVOX 600 MG/D5W 600 MG/300 ML IVPB IV SCH ×2 (01:39→13:58)
[2019-02-08] MEDS: PEPCID IV SCH ×2 (03:30→14:35)
[2019-02-08] MEDS: SODIUM CHLORIDE 0.9% INJ SCH (03:30)
[2019-02-08] MEDS: NS 1,000 ML IV SCH (03:31)
[2019-02-08 05:25] LABS: ALLEN TEST YES; BE -1.3 mmoll (-3.0-3.0); BLOOD TYPE ARTERIAL; HCO3-(ACT) 23.9 mmoll (20.0-26.0); O2(CT) 13.3 mL/dL (15.0-23.0); O2HB 96.7 % (95.0-99.0); PCO2(98.6) 34 mmHg (35-45); PO2(98.6) 83 mmHg (60-100); SAMPLE BLOOD; THB 9.7 g/dL (11.5-17.4); pH(98.6) 7.43 (7.35-7.45)
[2019-02-08 05:27] LABS: MODALITY CANNULA
[2019-02-08] MEDS: DUONEB (A & A) INH SCH ×6 (05:50→23:26)
--- NOTE | 2019-02-08 07:08 | Diag Imaging Result Doc PS360 ---
EXAM: CHEST-PORTABLE 02/08/2019 HISTORY: respiratory failure TECHNIQUE: AP portable at 0600 COMMENT: There is some volume loss and atelectasis in the right upper lobe which was also present on 02/07/2019. There is more fluid in the minor fissure than on the previous study. There is also some hazy opacity in the left lower lobe which has increased since the previous study. IMPRESSION: Right upper lobe atelectasis and/or pneumonia. Mild pulmonary edema. Electronically signed by Elia Mills 02/08/2019 7:06 AM
[2019-02-08 07:17] LABS: AGAP 12; ALB/GLOB RATIO 0.7; ALBUMIN 2.3 g/dL (3.5-5.0); ALKALINE PHOSPHATASE 108 U/L (32-104); BUN 5 mg/dL (8-22); CHLORIDE 107 mmol/L (98-107); COSMO 280; CREATININE 0.4 mg/dL (0.5-0.9); ESTIMATED GFR > 60; GLUCOSE 150 mg/dL (70-104); GOT 30 U/L (10-30); GPT 21 U/L (10-36); POTASSIUM 4.4 mmol/L (3.5-5.1); SODIUM 140 mmol/L (136-145); TCO2 21 mmol/L (25-35); TOTAL BILIRUBIN 0.77 mg/dL (0.20-1.00); TOTAL PROTEIN 5.5 g/dL (6.3-8.3)
[2019-02-08 07:18] LABS: CALCIUM 6.7 mg/dL (8.8-10.2)
[2019-02-08] MEDS: MAXIPIME 1 GM in NS 50 ML IV SCH ×2 (08:47→20:52)
[2019-02-08] MEDS: ASPIRIN PR SCH (08:48)
[2019-02-08] MEDS: COZAAR PO SCH (08:48)
[2019-02-08] MEDS: KEPPRA 500 MG in NS 100 ML IV SCH (08:48)
[2019-02-08] MEDS: COREG PO SCH ×2 (08:48→20:51)
[2019-02-08] MEDS: CARDIZEM 125/NS 125 MG/125 ML IVPB IV SCH (08:48)
[2019-02-08] MEDS: LOVENOX SUBQ SCH (08:48)
[2019-02-08] MEDS: BACTROBAN OINTMENT TOP SCH ×2 (08:50→20:54)
[2019-02-08] MEDS: SANTYL OINT TOP SCH (08:50)
[2019-02-08] MEDS ORDERED: LANOXIN PO ONE (10:56)
[2019-02-08] MEDS: ALBUMIN 25% IV SCH (11:12)
[2019-02-08] MEDS: LASIX IV SCH (11:48)
--- NOTE | 2019-02-08 12:35 | PROGRESS NOTE ---
DATE: 02/08/2019 SUBJECTIVE: Ms. Brown has been in the hospital for the past 5 days. She has been successfully extubated since yesterday. She seems to be doing fairly okay, is currently on 2 L of nasal cannula. OBJECTIVE: General: Ms. Brown is a 58-year-old female, she is in bed, she does not seem to be in any cardiopulmonary distress. HEENT: Mucosa is pink and moist. Anicteric. Acyanotic. Neck: Supple. There seems to be a left jugular central line in place. Chest: Air entry is bilaterally reduced. There are some crackles in the posterior lung valerio, but no wheezing. Cardiovascular: Regular rate and rhythm. Abdomen: Soft, distended, but nontender. Bowel sounds are present but remarkably hypoactive. Extremities: About 3+ pedal edema. DIAGNOSTIC DATA: No CBC for this morning. Chemistry is reviewed. Calcium is 6.7. Rest of chemistry is unremarkable except for albumin, which is 2.3. The patient's microbiology data has been reviewed. The right foot has Staphylococcus aureus on the ulcer. Chest x- ray this morning shows a right upper lobe atelectasis and/or pneumonia, mild pulmonary edema. CURRENT MEDICATIONS: The patient's current medications have also been reviewed. ASSESSMENT AND PLAN: 1. Acute hypoxemic respiratory failure. The patient was initially intubated, has been successfully extubated for the past 2 days. Is currently on nasal cannula and she seems to be doing fairly okay. 2. Septic shock on presentation, improved. 3. Bilateral multifocal pneumonia. The patient is currently on cefepime with Zyvox. 4. Fluid overload, presumably from over-hydration during sepsis as well as congestive heart failure. We will discontinue the IV fluids at this point and give the patient as needed Lasix. 5. Fecal impaction. We will continue with bowel regimen. 6. Congestive heart failure secondary to presumed takotsubo cardiomyopathy, ejection fraction of 20%. Hopefully, as the stressful event, in this case pneumonia and septic shock, gets better the patient's cardiomyopathy should also improve. Cardiology is on board. 7. Atrial fibrillation with rapid ventricular response. The patient is currently rate controlled. She was on Cardizem drip. We have discontinued this, this morning. Since the patient's EF is actually remarkably low, we will give her digoxin and continue with her carvedilol and low-dose losartan. We will await Cardiology further recommendations, if they would use any other agent apart from the beta kim and/or calcium channel blockers for rate control. 8. MSSA right foot infection. The patient is on antibiotics. In general, I think Ms. Brown seems to be progressively getting better. She has been successfully extubated for the past 2 days. She still shows a lot of fluid on board so we are going to give albumin with Lasix. We will continue with the current IV antibiotics and will observe Ms. Brown in the ICU for another day. Hopefully if she continues to be hemodynamically stable, we can transfer her to the floor later today or in the morning. cc: Alvin Davila MD [facility]
[2019-02-08] MEDS: LIORESAL PO SCH ×3 (12:39→20:52)
--- NOTE | 2019-02-08 13:10 | CARDIOLOGY PROGRESS NOTE ---
DATE: 02/08/2019 CHIEF COMPLAINT: Shortness of breath, respiratory failure. SUBJECTIVE: Mrs. Brown was extubated and now she is talking. She is sore in the left side of her neck where she has an IV. She does not have any chest pain. Her breathing seems to be relatively comfortable. Blood gases from this morning showed on nasal cannula pO2 of 83, CO2 is 34, pH 7.43. OBJECTIVE: Vital signs: Her vital signs this morning are temperature 98.1, blood pressure 103/56, pulse 94, respirations 21. General: She is awake in good spirits, no distress. HEENT: Unremarkable. Chest: Diffusely diminished breath sounds in both lungs. Heart: Sounds are regular and rhythmic. I do not hear any gallop or murmur. Abdomen: Obese. Extremities: Show diffuse edema of mild degree. Chest x-ray done today shows right upper lobe atelectasis or pneumonia with mild pulmonary edema. BLOOD WORK: Shows a sodium of 140, potassium 4.4, BUN 5, creatinine 0.4. Calcium 6.7. ALT is 108, AST 21, albumin 2.3. IMPRESSION: 1. Patient with acute respiratory failure presumably pneumonia. 2. Takotsubo cardiomyopathy. This is a stress-related cardiomyopathy. 3. History of multiple sclerosis with severe functional impairment. 4. History of hypertension. 5. History of hyperlipidemia. 6. Prior history of pulmonary embolism. RECOMMENDATIONS: At this time, we will continue supportive therapy. The patient has been extubated and seems to be really hemodynamically very stable. Hopefully, her stress-related cardiomyopathy will resolve with time. Will continue to follow her. cc: Oleg Kovacs MD
[2019-02-08] MEDS ORDERED: HALDOL IV ONE (16:29)
[2019-02-08] MEDS: KEPPRA PO SCH (21:12)
[2019-02-09] MEDS: HUMULIN R SUBQ SCH ×6 (00:31→19:51)
[2019-02-09] MEDS: ZYVOX 600 MG/D5W 600 MG/300 ML IVPB IV SCH ×3 (01:21→13:46)
[2019-02-09] MEDS: SODIUM CHLORIDE 0.9% INJ SCH (03:19)
[2019-02-09] MEDS: PEPCID IV SCH ×3 (03:19→14:44)
[2019-02-09] MEDS: DUONEB (A & A) INH SCH ×6 (04:00→23:42)
[2019-02-09 05:14] LABS: ALLEN TEST YES; BE 2.6 mmoll (-3.0-3.0); BLOOD TYPE ARTERIAL; HCO3-(ACT) 26.9 mmoll (20.0-26.0); METHB 0.9 % (0.0-1.5); O2(CT) 14.7 mL/dL (15.0-23.0); O2HB 96.2 % (95.0-99.0); PCO2(98.6) 41 mmHg (35-45); PO2(98.6) 120 mmHg (60-100); SAMPLE BLOOD; SAO2 97.5 % (95.0-100.0); THB 10.7 g/dL (11.5-17.4); pH(98.6) 7.43 (7.35-7.45)
[2019-02-09 05:16] LABS: MODALITY CANNULA
[2019-02-09 05:57] LABS: AGAP 9; ALB/GLOB RATIO 0.8; ALBUMIN 2.3 g/dL (3.5-5.0); ALKALINE PHOSPHATASE 85 U/L (32-104); BUN 4 mg/dL (8-22); CALCIUM 7.4 mg/dL (8.8-10.2); CHLORIDE 108 mmol/L (98-107); COSMO 281; CREATININE 0.4 mg/dL (0.5-0.9); ESTIMATED GFR > 60; GLUCOSE 115 mg/dL (70-104); GOT 17 U/L (10-30); GPT 13 U/L (10-36); POTASSIUM 3.5 mmol/L (3.5-5.1); SODIUM 142 mmol/L (136-145); TCO2 25 mmol/L (25-35); TOTAL BILIRUBIN 0.61 mg/dL (0.20-1.00); TOTAL PROTEIN 5.1 g/dL (6.3-8.3)
--- NOTE | 2019-02-09 07:31 | Diag Imaging Result Doc PS360 ---
EXAM: CHEST-PORTABLE 02/09/2019 HISTORY: respiratory failure TECHNIQUE: AP portable at 0522 COMMENT: There is a left internal jugular central venous catheter with its tip in the superior vena cava. There is apparent fluid in the right costophrenic sulcus laterally and there is volume loss with elevation of the right hemidiaphragm. This is slightly worse than on 02/08/2019. The inspiration is generally less optimal. IMPRESSION: Worsened pleural fluid and atelectasis on the right. Electronically signed by Elia Mills 02/09/2019 7:28 AM
[2019-02-09] MEDS: LIORESAL PO SCH ×4 (08:00→20:42)
[2019-02-09] MEDS: NEXIUM PO SCH (08:00)
[2019-02-09] MEDS: COZAAR PO SCH (08:01)
[2019-02-09] MEDS: ALBUMIN 25% IV SCH (08:02)
[2019-02-09] MEDS: COREG PO SCH ×2 (08:02→20:42)
[2019-02-09] MEDS: KEPPRA PO SCH ×2 (08:02→20:42)
[2019-02-09] MEDS: LANOXIN PO SCH (08:02)
[2019-02-09] MEDS: LOVENOX SUBQ SCH (08:03)
[2019-02-09] MEDS: SANTYL OINT TOP SCH (08:03)
[2019-02-09] MEDS: LASIX IV SCH (08:03)
[2019-02-09] MEDS: ASPIRIN PR SCH (08:03)
[2019-02-09] MEDS: BACTROBAN OINTMENT TOP SCH ×2 (08:04→20:43)
[2019-02-09] MEDS ORDERED: TOPROL XL PO SCH (09:00)
[2019-02-09] MEDS: MAXIPIME 1 GM in NS 50 ML IV SCH ×2 (09:02→20:43)
--- NOTE | 2019-02-09 11:44 | CARDIOLOGY PROGRESS NOTE ---
DATE: 02/09/2019 CHIEF COMPLAINT: Shortness of breath. SUBJECTIVE: Ms. Brown continues to improve. She is not having any chest pain. Breathing is more comfortable. OBJECTIVE: Blood pressure is 82/54, temperature is 98.1, respirations 15, pulse 102. She is awake and alert, in no distress. HEENT is unremarkable. Chest: Diminished breath sounds at bases. Heart sounds are regular and rhythmic. No gallop is noted. Abdomen is nontender, obese. Extremities showed trace edema diffusely. Neurologic: She has diffuse weakness in lower extremities. She is paraplegic basically. DIAGNOSTIC DATA: Chest x-ray done today reported as indicating worsened pleural fluid, atelectasis on the right. Blood gases showed pH of 7.43, pCO2 of 41, pO2 of 120 on 4 L nasal cannula. Sodium is 142, potassium 3.5, BUN is 4, creatinine 0.4. Albumin is 2.3. IMPRESSION: 1. The patient presented with acute respiratory failure. This probably is due to pneumonia. 2. Takotsubo cardiomyopathy, acute congestive heart failure, stress-related cardiomyopathy. 3. History of hypertension. 4. Prior history of pulmonary embolism. 5. History of multiple sclerosis with severe functional impairment. RECOMMENDATIONS: At this point in time, the patient seems to be improving. She is getting albumin and Lasix. I will continue the same protocol. We will consider doing a followup echocardiogram at some point. cc: Oleg Kovacs MD
--- NOTE | 2019-02-09 15:50 | PROGRESS NOTE ---
DATE: 02/09/2019 SUBJECTIVE: The patient is resting in bed. Not in any obvious distress. OBJECTIVE: Vital Signs: As follows: Temperature is 98.3, pulse 108, respiratory 16, blood pressure 121/69. O2 saturation is 98%. HEENT: Atraumatic, normocephalic. Cardiovascular: S1, S2. Respiratory: Has evidence of good air entry bilaterally. Abdomen: Soft, nontender. No masses felt. Extremities: Has edema in both lower extremities. Wound site in both feet are dressed. Central Nervous System: No obvious focal deficits noted. LABS: ABG 7.43/41/120/97.5%. Sodium is 142, potassium 3.5, chloride is 108, bicarb is 23, ASSESSMENT AND PLAN: 1. Acute respiratory failure. The patient has been extubated now for a couple of days and she seemed to be doing well in terms of her respiratory status. 2. Tachyarrhythmia. The patient is now on rate controlling agents. Specifically, carvedilol and also digoxin added to treatment regimen. 3. Lat-LC-yknqzzasy myocardial infarction. Cardiology following. 4. Diabetes mellitus. Continue blood sugar monitor as well as sliding scale insulin. 5. History of suprapubic catheter. In place. 6. Sepsis. Continue current antibiotic regimen. 7. Disposition: The patient can be transferred to a step-down unit. cc: Brayan Henriquez MD MTDD
[2019-02-10] MEDS: HUMULIN R SUBQ SCH ×6 (00:23→22:06)
[2019-02-10] MEDS: PEPCID IV SCH ×2 (02:52→14:34)
[2019-02-10] MEDS: ZYVOX 600 MG/D5W 600 MG/300 ML IVPB IV SCH (02:52)
[2019-02-10] MEDS: DUONEB (A & A) INH SCH ×6 (03:17→23:14)
[2019-02-10 05:54] LABS: ALLEN TEST YES; BE 4.7 mmoll (-3.0-3.0); BLOOD TYPE ARTERIAL; HCO3-(ACT) 28.6 mmoll (20.0-26.0); METHB 1.1 % (0.0-1.5); O2(CT) 13.1 mL/dL (15.0-23.0); O2HB 96.1 % (95.0-99.0); PCO2(98.6) 35 mmHg (35-45); PO2(98.6) 133 mmHg (60-100); SAMPLE BLOOD; SAO2 97.9 % (95.0-100.0); THB 9.5 g/dL (11.5-17.4); pH(98.6) 7.51 (7.35-7.45)
[2019-02-10 05:56] LABS: MODALITY CANNULA
--- NOTE | 2019-02-10 06:33 | Diag Imaging Result Doc PS360 ---
EXAM: CHEST-PORTABLE HISTORY: respiratory failure TECHNIQUE: Portable chest single view COMPARISON: 02/09/2019 FINDINGS: Similar inspiratory effort. Pulmonary edema and/or infiltrates are less pronounced. No cardiomegaly. No change in the left jugular line. IMPRESSION: Mild interval improvement. Electronically signed by Herbie Banerjee 02/10/2019 6:30 AM
[2019-02-10 07:56] LABS: AGAP 7; ALB/GLOB RATIO 0.8; ALBUMIN 2.4 g/dL (3.5-5.0); ALKALINE PHOSPHATASE 88 U/L (32-104); BUN 5 mg/dL (8-22); CALCIUM 7.3 mg/dL (8.8-10.2); CHLORIDE 109 mmol/L (98-107); COSMO 282; CREATININE 0.4 mg/dL (0.5-0.9); ESTIMATED GFR > 60; GLUCOSE 93 mg/dL (70-104); GOT 16 U/L (10-30); GPT 10 U/L (10-36); POTASSIUM 3.8 mmol/L (3.5-5.1); SODIUM 143 mmol/L (136-145); TCO2 27 mmol/L (25-35); TOTAL BILIRUBIN 0.54 mg/dL (0.20-1.00); TOTAL PROTEIN 5.3 g/dL (6.3-8.3)
[2019-02-10] MEDS: MAXIPIME 1 GM in NS 50 ML IV SCH ×2 (08:20→22:02)
[2019-02-10] MEDS: COZAAR PO SCH (10:25)
[2019-02-10] MEDS: KEPPRA PO SCH ×2 (10:26→22:04)
[2019-02-10] MEDS: NEXIUM PO SCH (10:26)
[2019-02-10] MEDS: LIORESAL PO SCH ×4 (10:27→22:04)
[2019-02-10] MEDS: COREG PO SCH ×2 (10:27→22:03)
[2019-02-10] MEDS: ALBUMIN 25% IV SCH (10:27)
[2019-02-10] MEDS: LANOXIN PO SCH (10:27)
[2019-02-10] MEDS: LOVENOX SUBQ SCH (10:33)
--- NOTE | 2019-02-10 11:01 | CARDIOLOGY PROGRESS NOTE ---
DATE: 02/10/2019 SUBJECTIVE: Ms. Brown has no complaints today. She has no shortness of breath. She is tolerating oral intake. PHYSICAL EXAMINATION: Vital Signs: The patient is afebrile. Heart rate is 71, blood pressure 91/56. Her Is and Os have been significantly positive over the hospitalization but have recently been more negative with the addition of Lasix. General: She is in no acute distress. Cardiovascular: She sounds to be in a regular rate and rhythm. She has no murmurs. She has no S3. Extremities have mild bilateral lower extremity edema. Chest: Examination is clear bilaterally. She has no increased work of breathing. Abdomen: Soft, nontender. PERTINENT DATA: Sodium 143, potassium is 3.8, BUN 5, creatinine 0.4, albumin is 2.4. ASSESSMENT: Ms. Brown is a 58-year-old female who presents septic and appears to have a Takotsubo cardiomyopathy. PLAN: She is currently in sinus rhythm. We will likely check an echocardiogram in the next couple of days as it appears she had a Takotsubo cardiomyopathy. She is on beta-blockers and currently an ARB. We will continue on these medications including the Lasix. cc: Norm Hernández MD
[2019-02-10] MEDS: LASIX IV SCH ×2 (11:33→13:56)
[2019-02-10] MEDS ORDERED: ASPIRIN PO SCH (11:45)
[2019-02-10] MEDS ORDERED: VANCOMYCIN IV PER PHARMACY MISC SCH (14:30)
[2019-02-10] MEDS: SANTYL OINT TOP SCH (14:34)
[2019-02-10] MEDS: BACTROBAN OINTMENT TOP SCH ×2 (14:50→22:03)
[2019-02-10 16:39] LABS: INR 1.09
--- NOTE | 2019-02-10 17:30 | PROGRESS NOTE ---
DATE: 02/10/2019 SUBJECTIVE: The patient resting in bed. Not in any obvious distress. OBJECTIVE: Vital signs: Temperature 98.9 degrees, pulse 100, respiratory rate 16, blood pressure 134/67, oxygen saturation is 100%. HEENT: Atraumatic, normocephalic. Cardiovascular: S1, S2. Respiratory system: Has evidence of good air entry bilaterally. Abdomen: Soft, nontender. No masses felt. Extremities: Has edema in both lower extremities. Wound site dressed on both feet. Central nervous system: No obvious focal deficit noted. LABORATORY DATA: ABG 7.51/35/133/97.9%. Sodium is 134, potassium 3.8, chloride is 109, bicarb 27, BUN is 5, creatinine 0.4. Wound culture from right foot positive for Staphylococcus aureus. This is sensitive to vancomycin and also clindamycin. ASSESSMENT AND PLAN: 1. Acute respiratory failure. The patient has now been extubated. Resolved. 2. Tachyarrhythmia. Continue rate controlling agent. Cardiology is following. 3. Vrf-OM-uxdslugmf myocardial infarction. Cardiology is following. 4. Diabetes mellitus. Continue blood sugar monitoring as well as sliding scale insulin. 5. History of suprapubic catheter placement. Urology consulted. Consult to change catheter. 6. Infected wound right foot/infected with Staphylococcus aureus. Continue antibiotics as well as local wound care. 7. Probable pneumonia. Continue antibiotics. Follow up on repeat chest x-ray. 8. Deep vein thrombosis prophylaxis. Lovenox. 9. Gastrointestinal prophylaxis. Proton pump inhibitor. cc: Brayan Henriquez MD
[2019-02-10] MEDS: VANCOMYCIN 1.6 GM in NS 250 ML IV SCH (17:38)
--- NOTE | 2019-02-10 20:43 | PULMONOLOGY PROGRESS NOTE ---
DATE: 02/10/2019 SUBJECTIVE: The patient is awake, alert, and conversant. She is without specific complaints. OBJECTIVE: The patient has been afebrile for the last 24 hours. Blood pressure 135/67, heart rate 100, respiratory rate 16, oxygen saturation 100% on nasal cannula.HEENT: Pupils are equal and reactive. Oropharynx is clear. Neck: Supple. Chest: Reveals decreased breath sounds right base. Cardiac Exam: S1-S2. Abdomen: Soft. Extremities: Reveal wound dressings on her feet. LABORATORIES: Chest x-ray reveals chronic elevation of the right hemidiaphragm, decreasing pulmonary edema. Sputum cultures reveal no growth. IMPRESSION: 1. 58-year-old with acute hypoxemic respiratory failure. 2. Resolving pneumonia. 3. Septic shock. 4. Fungal urinary tract infection. 5. Staphylococcus aureus infecting the right foot. RECOMMENDATIONS: 1. Continue to wean oxygen as tolerated. 2. Single diuretic trial. 3. Continue wound care management. 4. Discontinue daily arterial blood gases. cc: Santana Alarcon MD
[2019-02-10] MEDS: TYLENOL PR PRN (22:04)
[2019-02-11] MEDS: DUONEB (A & A) INH SCH ×5 (03:12→20:15)
--- NOTE | 2019-02-11 03:23 | CONSULTATION ---
DATE OF CONSULTATION: 02/10/2019 CHIEF COMPLAINT: Suprapubic tube exchange. HISTORY OF PRESENT ILLNESS: Ms. Brown is a 58-year-old who presented to the emergency room on 02/03/2019 due to altered mental status and developed significant hypertension and required aggressive fluid resuscitation and admission to the ICU. The patient was managed there and subsequently has been transferred to the floor. Urology was consulted today regarding exchange of her indwelling suprapubic tube. The patient has had a suprapubic tube in now for a number of years, she says approximately 10 years and it was placed by Dr. Whitlock in [place]. The patient previously has been seen in the office by Dr. Patiño, most recently approximately 5 years ago. She states that her suprapubic tube is changed monthly by home nursing, she says this was last done approximately 4 weeks ago. She states that she occasionally will have some leakage around her catheter, has a history of recurring urinary tract infections. The patient states that she can tell that her catheter is becoming clogged and has difficulty draining. The patient would like her suprapubic tube to be exchanged. PAST MEDICAL HISTORY: 1. Multiple sclerosis. 2. Hypertension. 3. Hyperlipidemia. 4. Type 2 diabetes. 5. Seizure disorder. 6. History of multiple decubitus ulcers. PAST SURGICAL HISTORY: 1. Cholecystectomy. 2. Hysterectomy. 3. Tonsillectomy. 4. Placement of suprapubic tube. 5. Cystolitholapaxy. ALLERGIES: 1. Protonix. 2. Penicillin. 3. Codeine. 4. Tetracycline 5. Adhesive tape. 6. Latex. 7. Meperidine. HOME MEDICATION: 1. Aspirin 81 mg daily. 2. Baclofen 20 mg p.o. 4 times a day. 3. Coreg 3.125 mg p.o. b.i.d. 4. Digoxin 125 mcg p.o. daily. 5. Lovenox 30 mg subcutaneous daily. 6. Nexium 40 mg p.o. daily. 7. Pepcid 20 mg IV q.12 hours. 8. Lasix 40 mg daily. 9. Keppra 50 mg p.o. b.i.d. 10. Losartan 25 mg p.o. daily. 11. Zofran 4 mg q.4 hours p.r.n. 12. Cefepime 1 g daily. 13. Vancomycin 1.6 g q.18 hours. FAMILY HISTORY: Denies family history of malignancy. SOCIAL HISTORY: Denies tobacco, alcohol, or illicit drug use. She currently lives with her mother. REVIEW OF SYSTEMS: Twelve-point review of systems performed with all pertinent positives and negatives in the HPI. PHYSICAL EXAMINATION: Vital Signs: Temperature 98.9 degrees, heart rate 106, blood pressure 104/63, oxygen saturation 98%. General: No acute distress. Resting comfortably in bed. Alert and oriented x3. HEENT: Normocephalic and atraumatic. Pupils are equal, round, and reactive to light. Mucous membranes moist. Sclerae are clear. Neck: Trachea midline. No palpable masses. Lungs: Clear to auscultation bilaterally with equal lung expansion. Heart: Regular rhythm with slight tachycardia. No murmurs, rubs, or gallops. Abdomen: Soft, nontender, and nondistended. No palpable masses or guarding. Genitourinary: Suprapubic catheter in place with evidence of clear yellow urine. A 20-Croatian silicone catheter in position with good drainage. Musculoskeletal: Has multiple contractures of the upper and lower extremity. The patient does have evidence of decubitus ulcers on the sacrum as well as the lower extremities. Neurologic: Limited function from her multiple sclerosis. ASSESSMENT AND PLAN: Ms. Brown is a 58-year-old with history of multiple sclerosis, type 2 diabetes, seizure disorder, hypertension and decubitus ulcers, who presents for consultation regarding suprapubic tube and necessity to exchange. The patient has this exchanged every 4 weeks by home health, and it has been a number weeks now since she had this last exchanged, she states that it has likely been at least 4 weeks. The catheter seemed to be draining clear yellow urine at this time; however, there is evidence of sediment within the catheter itself. Talking to the patient I recommended removal and replacement. I deflated the balloon and removed the catheter, a small amount urine came from the suprapubic tube site, at which time I prepped her with Betadine and reinserted a 20-Croatian silicone catheter with ease into her bladder, and inflated it with 8 mL of sterile water. Good drainage was seen through the catheter, and this was placed to gravity drainage. The patient tolerated the procedure well. We will continue with home health changing it every 4 weeks. Please call with any questions or concerns. cc: Ryan Graves MD MTDD
[2019-02-11] MEDS: HUMULIN R SUBQ SCH ×6 (04:33→20:22)
[2019-02-11] MEDS: PEPCID IV SCH ×2 (06:39→18:31)
[2019-02-11 07:55] LABS: BASO# 0.03 X1000 (0.0-0.2); BASO% 0.5 % (0.0-0.8); EOS# 0.57 X1000 (0.0-0.7); EOS% 8.7 % (0.0-10.0); HEMATOCRIT 33.8 % (37.0-47.0); HEMOGLOBIN 10.1 g/dL (12.0-16.0); IMM GRAN# 0.02 X1000 (0.0-0.04); IMM GRAN% 0.3 % (0.0-0.5); LYMPH% 41.2 % (20.5-51.1); MCH 28.3 PG (27-31); MCHC 29.9 g/dL (33-37); MCV 94.7 FL (81-99); MONO# 0.45 X1000 (0.11-0.59); MONO% 6.9 % (1.7-9.3); MPV 10.6 FL (7.4-10.4); NEUT# 2.78 X1000 (1.4-6.5); NEUT% 42.4 % (42.2-75.2); PLT 82 X1000 (130-400); RBC 3.57 XMIL (4.2-5.4); RDW 15.8 % (11.5-14.5); WBC 6.55 X1000 (4.8-10.8)
--- NOTE | 2019-02-11 08:00 | PROGRESS NOTE ---
DATE: 02/11/2019 SUBJECTIVE: No acute events overnight. Resting comfortably in bed. Good drainage from her suprapubic tube. OBJECTIVE: Vital Signs: Temperature 98.4 degrees, heart rate 81, blood pressure 126/60, oxygen saturation 100% on nasal cannula. General: No acute distress. Resting comfortably in bed. Respiratory: Good respiratory effort without audible wheezing or rales. Abdomen: Soft, nontender, nondistended. : No suprapubic tenderness. Suprapubic tube in place with clear yellow urine. No CVA tenderness. ASSESSMENT/PLAN: Ms. Brown is a 58-year-old with multiple sclerosis, type 2 diabetes, seizure disorder, hypertension, and decubitus ulcers who presents in consultation regarding suprapubic tube change. This was exchanged yesterday with ease. She usually has these exchanged every 4 weeks by home health. The suprapubic tube is draining clear yellow urine. She denies any discomfort. Would leave her suprapubic tube in for another 4 weeks and can be changed by home health nursing. If any issues arise related to the tube, please call urology for questions or concerns. cc: Ryan Graves MD MTDD
[2019-02-11 08:30] LABS: MAGNESIUM 1.6 mg/dL (1.5-2.7); PHOSPHORUS 2.8 mg/dL (2.7-4.5)
[2019-02-11] MEDS: LANOXIN PO SCH (08:37)
[2019-02-11] MEDS: COREG PO SCH ×2 (08:37→20:01)
[2019-02-11] MEDS: COZAAR PO SCH (08:37)
[2019-02-11] MEDS: KEPPRA PO SCH ×2 (08:37→20:01)
[2019-02-11] MEDS: LIORESAL PO SCH ×4 (08:37→20:01)
[2019-02-11] MEDS: NEXIUM PO SCH (08:37)
[2019-02-11] MEDS: ASPIRIN PO SCH (08:37)
[2019-02-11] MEDS: LOVENOX SUBQ SCH (08:38)
[2019-02-11 08:39] LABS: AGAP 8; ALB/GLOB RATIO 0.9; ALBUMIN 2.7 g/dL (3.5-5.0); ALKALINE PHOSPHATASE 83 U/L (32-104); BUN 6 mg/dL (8-22); CALCIUM 7.6 mg/dL (8.8-10.2); CHLORIDE 110 mmol/L (98-107); COSMO 282; CREATININE 0.4 mg/dL (0.5-0.9); ESTIMATED GFR > 60; GLUCOSE 84 mg/dL (70-104); GOT 18 U/L (10-30); GPT 9 U/L (10-36); POTASSIUM 4.4 mmol/L (3.5-5.1); SODIUM 143 mmol/L (136-145); TCO2 25 mmol/L (25-35); TOTAL BILIRUBIN 0.45 mg/dL (0.20-1.00); TOTAL PROTEIN 5.6 g/dL (6.3-8.3)
[2019-02-11] MEDS ORDERED: NS 250 ML ONE (10:32)
[2019-02-11] MEDS: MAXIPIME 1 GM in NS 50 ML IV SCH ×2 (11:19→19:57)
[2019-02-11] MEDS: LASIX IV SCH (11:19)
[2019-02-11] MEDS: ALBUMIN 25% IV SCH (11:32)
[2019-02-11] MEDS: VANCOMYCIN 1.6 GM in NS 250 ML IV SCH (11:32)
[2019-02-11] MEDS: BACTROBAN OINTMENT TOP SCH ×2 (14:04→20:01)
[2019-02-11] MEDS: SANTYL OINT TOP SCH (14:07)
--- NOTE | 2019-02-11 16:29 | PROGRESS NOTE ---
DATE: 02/11/2019 SUBJECTIVE: This patient is awake. No specific complaints. She is breathing better. She does not want to go to a rehab center, she wants to go home with home health. She lives with her mom and apparently her mother can take care of her. OBJECTIVE: Vital Signs: Temperature 97 degrees, pulse 94, respiratory rate 16, blood pressure 130/61, oxygen saturation 100% on 3 L of nasal cannula. HEENT: Head normocephalic. No trauma. PERRLA. Neck: Supple. No JVD. Central trachea. Chest: Decreased breath sounds mostly at the bases, basically on the right side. Cardiovascular: RRR. Abdomen: Soft, nontender, nondistended. No hepatosplenomegaly. Extremities: She has some dressings bilaterally at the level of the feet. No secretion. LABORATORY: WBC 6.5, hemoglobin 10.1, hematocrit 33.8, platelets 82,000. Sodium 143, potassium 4.4, chloride 110, bicarbonate 25, BUN 6, creatinine 0.4, glucose 84, calcium 76, albumin 2.7. ASSESSMENT AND PLAN: 1. Hypoxemic respiratory failure secondary to pneumonia. This patient has been extubated. This is getting better. Continue with oxygen supplementation, antibiotics. We will continue to monitor. Pulmonary Department on board. 2. Septic shock, resolved. Continue with same treatment. 3. Fungal urinary tract infection. Aware. 4. Staphylococcus aureus infecting the right foot. Continue with antibiotics. 5. Thrombocytopenia. On 02/06/2018 her platelet count was 227,000. Today it is 82,000. I will stop the Lovenox for now and I will recheck the platelet count in the morning. 6. Type 2 diabetes. Continue pattern of blood sugar and sliding scale insulin. 7. History of suprapubic catheter placement. Urology has been consulted to replace it. It has been done already. 8. Iiq-WO-pvnzwzlgj myocardial infarction. Cardiology is following this patient. It looks like this may be related to takotsubo cardiomyopathy. She is on beta blockers and currently on ARB. We will continue with those medications. 9. History of multiple sclerosis. She needs to continue to monitor and follow up with her doctor/Neurology as an outpatient. Overall, this patient seems to be doing better. I offered to her the possibility of sending this patient to a rehab center but she refused it. She was to go home. Apparently her mom can take care of her. She has been in hospice before but she declined that as well. She wants home with home health. cc: Moses Emerson MD
[2019-02-11] MEDS ORDERED: BUMEX IV ONE (17:20)
--- NOTE | 2019-02-11 17:43 | PULMONOLOGY PROGRESS NOTE ---
DATE: 02/11/2019 SUBJECTIVE: The patient is awake, alert, and conversant. She is without specific complaints. She has had a PICC line placed. OBJECTIVE: Vital Signs: The patient has been afebrile for the last 24 hours. Blood pressure 110/76, heart rate 93, respiratory rate 16, oxygen saturation 100% on 3 L per nasal cannula. HEENT: Pupils are equal and reactive. Oropharynx appears clear. Neck: Supple. Chest: Reveals crackles at the right base. Cardiac exam: S1-S2. Abdomen: Soft and without hepatosplenomegaly. Extremities: Reveal 1+ peripheral edema. LABORATORIES: Sodium 143, potassium 4.4, chloride 110, bicarbonate 25, BUN 6, creatinine 0.4. White blood count 6.55, hemoglobin 10.1, platelet count 82,000. IMPRESSION: A 58-year-old with: 1. Acute hypoxemic respiratory failure. 2. Pneumonia. 3. Septic shock, which has resolved. 4. Staphylococcus aureus infection of the right foot. 5. Fungal urinary tract infection. RECOMMENDATION: 1. Continue to wean oxygen as tolerated. 2. Continue wound care management. 3. Follow-up platelet count as outlined by Dr. Arevalo for thrombocytopenia. cc: Santana Alarcon MD
[2019-02-12] MEDS: HUMULIN R SUBQ SCH ×6 (01:31→22:09)
[2019-02-12] MEDS: DUONEB (A & A) INH SCH ×7 (03:40→23:30)
[2019-02-12] MEDS: PEPCID IV SCH ×2 (05:35→17:30)
[2019-02-12] MEDS: VANCOMYCIN 1.6 GM in NS 250 ML IV SCH ×2 (05:35→22:55)
--- NOTE | 2019-02-12 07:14 | Diag Imaging Result Doc PS360 ---
EXAM: CHEST-PORTABLE 02/12/2019 HISTORY: abnormal exam TECHNIQUE: AP portable at 0625 COMMENT: Compared to 02/10/2019 the left internal jugular catheter has been removed and there is a right-sided PICC line with its tip in the right atrium. The lungs are slightly better expanded than they were otherwise there has been no significant change. IMPRESSION: Stable chest. Electronically signed by Elia Mills 02/12/2019 7:11 AM
[2019-02-12] MEDS: COREG PO SCH ×2 (08:58→21:11)
[2019-02-12] MEDS: KEPPRA PO SCH ×2 (08:58→21:08)
[2019-02-12] MEDS: COZAAR PO SCH (08:59)
[2019-02-12] MEDS: ASPIRIN PO SCH (08:59)
[2019-02-12] MEDS: LANOXIN PO SCH (09:00)
[2019-02-12] MEDS: LIORESAL PO SCH ×4 (09:00→21:08)
[2019-02-12] MEDS: MAXIPIME 1 GM in NS 50 ML IV SCH ×2 (09:02→21:08)
[2019-02-12] MEDS: NEXIUM PO SCH (09:02)
[2019-02-12] MEDS: BACTROBAN OINTMENT TOP SCH ×2 (09:03→21:11)
[2019-02-12] MEDS: SANTYL OINT TOP SCH (09:03)
[2019-02-12 09:56] LABS: BASO# 0.03 X1000 (0.0-0.2); BASO% 0.5 % (0.0-0.8); EOS# 0.59 X1000 (0.0-0.7); EOS% 9.2 % (0.0-10.0); HEMATOCRIT 30.5 % (37.0-47.0); HEMOGLOBIN 9.3 g/dL (12.0-16.0); IMM GRAN# 0.02 X1000 (0.0-0.04); IMM GRAN% 0.3 % (0.0-0.5); LYMPH# 2.26 X1000 (1.2-3.4); LYMPH% 35.3 % (20.5-51.1); MCH 28.4 PG (27-31); MCHC 30.5 g/dL (33-37); MONO# 0.63 X1000 (0.11-0.59); MONO% 9.8 % (1.7-9.3); MPV 10.5 FL (7.4-10.4); NEUT# 2.87 X1000 (1.4-6.5); NEUT% 44.9 % (42.2-75.2); PLT 100 X1000 (130-400); RBC 3.28 XMIL (4.2-5.4); RDW 15.3 % (11.5-14.5)
[2019-02-12 10:14] LABS: MAGNESIUM 1.4 mg/dL (1.5-2.7); PHOSPHORUS 2.5 mg/dL (2.7-4.5)
[2019-02-12 10:22] LABS: AGAP 8; BUN 7 mg/dL (8-22); CHLORIDE 101 mmol/L (98-107); COSMO 279; CREATININE 0.4 mg/dL (0.5-0.9); ESTIMATED GFR > 60; GLUCOSE 164 mg/dL (70-104); POTASSIUM 4.2 mmol/L (3.5-5.1); SODIUM 139 mmol/L (136-145); TCO2 30 mmol/L (25-35)
[2019-02-12] MEDS ORDERED: MAGNESIUM SULFATE 2 GM/S.W.I. 2 GM/50 ML IVPB IV ONE (14:11)
--- NOTE | 2019-02-12 16:08 | PROGRESS NOTE ---
DATE: 02/12/2019 SUBJECTIVE: The patient is awake. No specific complaints. She is breathing better, she still wants to go home with home health. We need to continue treating her pneumonia. She had been extubated a few days ago; she is not on home oxygen, but here she is requiring 3.5 to 4 L. OBJECTIVE: Vital Signs: Temperature 98 degrees, pulse 93, respiratory rate 16, blood pressure 120/58, oxygen saturation 100% on 3.5 L of nasal cannula. HEENT: Head normocephalic, no trauma. PERRLA. Neck: Supple. No JVD. No masses. Central trachea. Chest: Decreased breath sounds mostly at the bases with some crepitus on the right side. Cardiovascular: RRR. Abdomen: Soft, nontender, nondistended. No hepatosplenomegaly. Extremities: She has some dressings bilaterally at the level of the feet, weakness and deformity, which is chronic. LABORATORY: WBC 6.4, hemoglobin 9.3, hematocrit 30.5 platelet 100. Sodium 139, potassium 4.2, chloride 101, bicarbonate 30. BUN 7, creatinine 0.4, glucose 162, calcium 8, magnesium 1.4. ASSESSMENT AND PLAN: 1. Hypoxemic respiratory failure secondary to pneumonia. This patient had been extubated a few days ago. She is getting better. Continue oxygen supplementation, antibiotics. We will continue to monitor. Pulmonary Department on board. 2. Septic shock, resolved. Continue with same treatment. 3. Fungal urinary tract infection, aware. No symptoms. 4. Staphylococcus aureus infecting the right foot. Continue with antibiotics. 5. Thrombocytopenia, compared with yesterday this is a little bit better. We have stopped the Lovenox for now. We will continue to monitor. 6. Type 2 diabetes. Continue pattern of blood sugar and sliding scale insulin. 7. History of suprapubic catheter placement. Urology Department has been consulted to replace it. It has been done already. 8. Non ST elevation myocardial infarction, possible takotsubo cardiomyopathy she is on beta blockers and ARBS. 9. History of multiple sclerosis. She needs to continue to monitor and follow up with her doctor/neurologist as an outpatient. Overall this patient is doing better. I will probably discuss the case with Infectious Disease Department to see if she needs IV antibiotics versus p.o. treatment. She has MSSA infection, so probably she can go home with p.o. treatment. She has been on cefepime and vancomycin during this hospitalization for her pneumonia as well. cc: Moses Emerson MD
--- NOTE | 2019-02-12 18:12 | CARDIOLOGY PROGRESS NOTE ---
DATE: 02/12/2019 SUBJECTIVE: Ms. Brown is not having any orthopnea. No chest pain. OBJECTIVE: She is afebrile. Heart rate of 93. Her blood pressure is 120/58. Most systolics appear to be in the 120s to 140s. Generally she is in no acute distress. Cardiovascular: She sounds to be in a regular rate and rhythm. She has no obvious murmurs. She has no S3. She has no lower extremity edema. Her chest exam sounds clear bilaterally. She has no increased work of breathing. Abdomen is soft, nontender. LABORATORY DATA: Sodium 139, potassium 4.2, BUN 7, creatinine 0.4. Magnesium level is 1.4. ASSESSMENT: Ms. Brown is a 58-year-old female who has had takotsubo-type cardiomyopathy. PLAN: I have increased her carvedilol to 6.25 b.i.d. She continues on losartan. We will plan on rechecking a limited echocardiogram tomorrow to evaluate her ejection fraction. cc: Norm Hernández MD
--- NOTE | 2019-02-12 21:09 | PULMONOLOGY PROGRESS NOTE ---
DATE: 02/12/2019 SUBJECTIVE: The patient is awake, alert, and conversant. She denies shortness of breath. OBJECTIVE: Vital Signs: The patient has been afebrile for the last 24 hours. Blood pressure 132/65, heart rate 93, respiratory rate 18, oxygen saturation 100% on 3 L per nasal cannula, output 4400 mL. HEENT: Pupils are equal and reactive. Oropharynx appears clear. Neck: Supple. Chest: Reveals slight decreased breath sounds, right base. Cardiac: S1-S2. Abdomen: Is soft and without hepatosplenomegaly. Extremities: Reveal decreased peripheral edema. LABORATORIES: Chest x-ray reveals slight elevation in the right hemidiaphragm which appears to be chronic. No acute infiltrates. White blood count 6.4, hemoglobin 9.3, platelet count 100,000. Sodium 139, potassium 4.2, chloride 101, bicarbonate 30, BUN 7, creatinine 0.4. Phosphorus 2.5, magnesium 1.4. IMPRESSION: A 58-year-old with: 1. Acute hypoxemic respiratory failure. 2. Pneumonia. 3. Takotsubo cardiomyopathy. 4. Staphylococcus aureus infection of the foot. 5. Fungal urinary tract infection. DISCUSSION: This is a 58-year-old with problems outlined above. She has had significant clinical improvement. She has diuresed with near clearing of her chest x-ray. Her saturation remains 100% on 3 L per nasal cannula. Her platelet count is improving. RECOMMENDATIONS: 1. Wean and discontinue oxygen as tolerated. 2. Management of Takotsubo cardiomyopathy as outlined by Dr. Norm Hernández. 3. The patient is an acceptable candidate for discharge from a pulmonary standpoint. cc: Santana Alarcon MD
[2019-02-13] MEDS: HUMULIN R SUBQ SCH ×5 (00:59→21:13)
[2019-02-13] MEDS: DUONEB (A & A) INH SCH ×6 (03:20→23:50)
[2019-02-13] MEDS: PEPCID IV SCH ×2 (05:49→18:17)
[2019-02-13 07:51] LABS: BASO# 0.03 X1000 (0.0-0.2); BASO% 0.4 % (0.0-0.8); EOS# 0.71 X1000 (0.0-0.7); HEMATOCRIT 29.4 % (37.0-47.0); HEMOGLOBIN 8.8 g/dL (12.0-16.0); IMM GRAN# 0.02 X1000 (0.0-0.04); IMM GRAN% 0.3 % (0.0-0.5); LYMPH# 2.45 X1000 (1.2-3.4); LYMPH% 31.1 % (20.5-51.1); MCH 27.9 PG (27-31); MCHC 29.9 g/dL (33-37); MCV 93.3 FL (81-99); MONO# 1.01 X1000 (0.11-0.59); MONO% 12.8 % (1.7-9.3); MPV 9.6 FL (7.4-10.4); NEUT# 3.65 X1000 (1.4-6.5); NEUT% 46.4 % (42.2-75.2); PLT 205 X1000 (130-400); RBC 3.15 XMIL (4.2-5.4); RDW 15.3 % (11.5-14.5); WBC 7.87 X1000 (4.8-10.8)
[2019-02-13 08:12] LABS: AGAP 7; ALB/GLOB RATIO 1.1; ALBUMIN 3.1 g/dL (3.5-5.0); ALKALINE PHOSPHATASE 102 U/L (32-104); BUN 7 mg/dL (8-22); CHLORIDE 102 mmol/L (98-107); COSMO 281; CREATININE 0.4 mg/dL (0.5-0.9); ESTIMATED GFR > 60; GLUCOSE 156 mg/dL (70-104); GOT 19 U/L (10-30); GPT 8 U/L (10-36); POTASSIUM 4.3 mmol/L (3.5-5.1); SODIUM 140 mmol/L (136-145); TCO2 31 mmol/L (25-35); TOTAL BILIRUBIN 0.44 mg/dL (0.20-1.00); TOTAL PROTEIN 5.9 g/dL (6.3-8.3)
[2019-02-13] MEDS: LIORESAL PO SCH ×4 (08:14→21:13)
[2019-02-13] MEDS: NEXIUM PO SCH (08:14)
[2019-02-13] MEDS: KEPPRA PO SCH ×2 (08:15→21:13)
[2019-02-13] MEDS: COREG PO SCH ×2 (08:15→21:13)
[2019-02-13] MEDS: ASPIRIN PO SCH (08:16)
[2019-02-13] MEDS: COZAAR PO SCH (08:16)
[2019-02-13] MEDS: MAXIPIME 1 GM in NS 50 ML IV SCH (08:17)
[2019-02-13] MEDS: LANOXIN PO SCH (08:19)
[2019-02-13] MEDS: BACTROBAN OINTMENT TOP SCH ×2 (08:22→21:10)
[2019-02-13] MEDS: SANTYL OINT TOP SCH (10:36)
--- NOTE | 2019-02-13 13:53 | CARDIOLOGY PROGRESS NOTE ---
DATE: 02/13/2019 SUBJECTIVE: Patient reports she is doing well. She has no complaints. No pain complaints. No orthopnea. PHYSICAL EXAMINATION: Vital signs: Afebrile. Heart rate 95, blood pressure 118/76. Her intake and output continue to be on a negative trend, cumulative intake his positive is 7.9 L. Generally: No acute distress. Cardiovascular: She sounds to be in a regular rate and rhythm. She has no murmurs. She has no S3. She has no lower extremity edema. Chest: Clear bilaterally. No increased work of breathing. Abdomen: Soft, nontender. PERTINENT DATA: Sodium is 140, potassium 4.3, BUN 7, creatinine 0.4 which has been stable. CBC was reviewed. ASSESSMENT: Ms. Brown is a 58-year-old female with a takotsubo type cardiomyopathy. PLAN: Patient seems to be doing well. We escalated her Coreg to 6.25 b.i.d. Continue her on her current dose of Cozaar. She continues on antibiotics for the time being. We will review her limited echo from today to reevaluate her takotsubo cardiomyopathy. It appears her IV Lasix has been discontinued. I will restart her oral Lasix. cc: Norm Hernández MD
--- NOTE | 2019-02-13 16:27 | PROGRESS NOTE ---
DATE: 02/13/2019 SUBJECTIVE: The patient is awake. No acute events overnight. I have requested an evaluation by Surgery Department and Infectious Disease Department since this patient apparently has bone exposure at the level of the feet and MSSA osteomyelitis. OBJECTIVE: Vital Signs: Temperature 97.9 degrees, pulse 95, respiratory rate 18, blood pressure 118/76, oxygen saturation 95% on nasal cannula. HEENT: Head normocephalic, no trauma. PERRLA. Neck: Supple. No JVD. No masses. Central trachea. Chest: Decreased breath sounds at the bases with some crepitus on the right side. Cardiovascular: RRR. Abdomen: Soft, nontender, nondistended. No hepatosplenomegaly. Extremities: She has some dressing bilaterally at the level of the feet, weakness and deformity, which is chronic. LABORATORY: WBC 7.8, hemoglobin 8.8, hematocrit 29.4, platelets 205. Sodium 140, potassium 4.3, chloride 102, bicarbonate 31. BUN 7, creatinine 0.6, glucose 156, calcium 8, albumin 3.1. ASSESSMENT AND PLAN: 1. Hypoxemic respiratory failure secondary to pneumonia. This patient has been extubated a few days ago. She is getting better. Continue with oxygen supplementation, antibiotics. Pulmonary Department on board. I do believe this patient is stable enough to be discharged, but I need the output from Surgery and Infectious Disease Department. 2. Septic shock, resolved. 3. Urinary tract infection. Aware. No symptoms. 4. Staphylococcus aureus infecting the right foot. Continue with antibiotics. Infectious Disease Department on board. 5. Thrombocytopenia resolved. 6. Type 2 diabetes, stable. 7. History of suprapubic catheter placement. Urology Department consulted and they already replaced the catheter. 8. Non-ST elevation myocardial infarction, possibly related to takotsubo cardiomyopathy. She is on beta blockers and ARBS and also diuretics. 9. History of multiple sclerosis. She is to continue to monitor and follow up with her doctor and neurologist as an outpatient. 10. Possible osteomyelitis. Like I mentioned before, I have consulted Infectious Disease Department and Surgery Department to evaluate this patient. cc: Moses Emerson MD
[2019-02-13] MEDS: KEFZOL 2 GM/D5W 2 GM/50 ML IVPB IV SCH (17:31)
[2019-02-13] MEDS: TYLENOL PR PRN (17:31)
--- NOTE | 2019-02-13 18:52 | INFECTIOUS DISEASE CONSULT REP ---
DATE: 02/13/2019 CONCLUSION: The patient has multiple wounds on her legs. Dr. Arevalo mentioned that there was exposed bone, which I did not see. A culture from one of the patient's wounds grew oxacillin- sensitive Staph aureus. RECOMMENDATION: I have discontinued cefepime and vancomycin and have put the patient on Ancef 2 g IV every 8 hours. I have ordered a triple phase bone scan of mainly both feet and ankles. If the areas show activity, then I will go ahead and get a plain x-ray of the area also. The patient does have other ulcerated areas, including on the back and especially on the back and knee. DISCUSSION: The patient initially came in because she was having difficulty breathing. It appears that most likely that problem was from pulmonary venous congestion. She has multiple areas on her legs where there are wounds. 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 She also has decreased sensation in both legs. LABS: Laboratory studies thus far show a CBC with a white count of 7870, hemoglobin 8.8, and platelet count 205,000. Creatinine is 0.4. GFR is greater than 60. Liver function studies are normal. Urine grew yeast from the patient's right foot, oxacillin-sensitive Staph aureus was isolated. Sputum grew normal misty. Blood cultures were negative. Chest x-ray shows what I think is mainly pulmonary venous congestion and not pneumonia. The x-ray has improved quite a bit. The patient has never been . She has had a total hysterectomy and bilateral salpingo- oophorectomy because she had uterine cancer. REVIEW OF SYSTEMS: Eyes/ears: Her hearing and vision are good. Neck: No stiffness. Respiratory: No cough or shortness of breath. Cardiac: No chest pain or palpitations. GI: No nausea, vomiting or diarrhea. : No dysuria or flank pain. Bone/joints/muscles: See present illness. Neurologic: The patient is paralyzed in her legs and she has decreased sensation in her legs. The patient has a seizure disorder, but she has not had a seizure in a long time. PAST MEDICAL HISTORY: Previous hospitalizations and operations: She has had a total hysterectomy and bilateral salpingo-oophorectomy. She has had multiple surgeries on her legs. Medical Diseases: Positive for multiple sclerosis, uterine cancer, diabetes mellitus and seizure disorder. Infectious disease history: Positive for pneumonia and UTI. FAMILY HISTORY: Positive for hypertension and cancer. SOCIAL HISTORY: [place] She lives with her mother. She is . She does not have any pets at home. She does not smoke cigarettes, drink alcoholic beverages or abuse drugs. MEDICATIONS: Her home medications include the following: Baclofen, benzonatate, Nexium, Diflucan, Lasix, glimepiride, Levsin, lactulose, Keppra, Cozaar, Glucophage, metoprolol, nitrofurantoin, Zofran, Ditropan, Requip and Ultram. PHYSICAL EXAMINATION: Vital Signs: Temperature is 97.9, pulse 95, respirations 18, blood pressure 118/76. Patient weighs 184 pounds. General: This is an obese, middle-aged female. She is in no acute distress. HEENT: She can hear my spoken words and see near objects. She does not have any white patches on her tongue. Neck: The patient does not complain of pain in her neck when I move her head. Lungs: Clear to auscultation. Cardiovascular: Heart rate is regular. Abdomen: Soft and nontender. Extremities: The patient has multiple wounds that are excoriated. There is some erythema at the wound sites. There was no purulence and no odor to the wounds and I did not see any necrotic tissue in any of the wounds. Neurologic: The patient is alert. She can move her arms well. She is paralyzed in her legs and she has decreased sensation in them. The patient does have a history of having a seizure disorder. Thank you for the consult. cc: Kyaw Bernabe MD
--- NOTE | 2019-02-13 22:53 | ECHO REPORT ---
ORDER DATE: 02/13/2019 SUMMARY: 1. Limited echocardiography performed for followup of left ventricular function. Parasternal windows were technically difficult with good apical windows evident. 2. Aortic valve is trileaflet and opens normally on 2-dimensional images. Mitral and tricuspid valves are without evidence of structural abnormality while pulmonic valve was not well demonstrated. The aortic root is normal size. 3. Normal left ventricular chamber size with mild concentric left hypertrophy is suggested. Estimated left ejection fraction appears to be at least 65%. No regional wall abnormality can be appreciated. Left atrium, right atrium and right ventricle are grossly normal in size. 4. No pericardial effusion. cc: MD Norm Chan MD
[2019-02-14] MEDS: KEFZOL 2 GM/D5W 2 GM/50 ML IVPB IV SCH ×3 (01:34→17:45)
[2019-02-14] MEDS: DUONEB (A & A) INH SCH ×6 (03:30→23:40)
[2019-02-14] MEDS: PEPCID IV SCH ×2 (05:33→17:45)
[2019-02-14] MEDS: HUMULIN R SUBQ SCH ×4 (05:59→20:25)
[2019-02-14] MEDS: COZAAR PO SCH (09:44)
[2019-02-14] MEDS: KEPPRA PO SCH ×2 (09:44→20:25)
[2019-02-14] MEDS: ASPIRIN PO SCH (09:44)
[2019-02-14] MEDS: LANOXIN PO SCH (09:44)
[2019-02-14] MEDS: COREG PO SCH ×2 (09:44→20:25)
[2019-02-14] MEDS: LASIX PO SCH (09:45)
[2019-02-14] MEDS: NEXIUM PO SCH (09:45)
[2019-02-14] MEDS: LIORESAL PO SCH ×4 (09:45→20:25)
[2019-02-14] MEDS: TYLENOL PO PRN (10:21)
[2019-02-14] MEDS: SANTYL OINT TOP SCH (11:47)
[2019-02-14] MEDS: BACTROBAN OINTMENT TOP SCH ×2 (11:47→20:26)
--- NOTE | 2019-02-14 13:51 | PROGRESS NOTE ---
DATE: 02/14/2019 SUBJECTIVE: No acute events overnight. Infectious Disease Department evaluated this patient and they have recommended to perform a triple phase bone scan. We will wait for the results to decide further treatment. OBJECTIVE: Vital Signs: Temperature 97.2 degrees, pulse 90, respiratory rate 17, blood pressure 100/48, oxygen saturation 100% on 3 L of nasal cannula. HEENT: Head normocephalic and atraumatic. PERRLA. Neck: Supple. No JVD. No masses. Central trachea. Chest: Decreased breath sounds at the bases with some crepitus on the right side. Cardiovascular: Regular rate and rhythm. Abdomen: Soft, nontender, and nondistended. No hepatosplenomegaly. Extremities: Bilateral lower extremity dressing at the level of the feet. She has weakness and deformity, which is chronic. LABORATORY DATA: Glucose 197. ASSESSMENT AND PLAN: 1. Hypoxemic respiratory failure secondary to pneumonia. This patient has been extubated a few days ago, she is getting better. Continue with oxygen supplementation, antibiotics per Infectious Disease Department. Pulmonary Department on board. 2. Septic shock, resolved. 3. Urinary tract infection. Aware. No symptoms. 4. Staphylococcus aureus infecting the right foot. Methicillin-sensitive Staphylococcus aureus. Pending bone scan to decide further treatment. 5. Thrombocytopenia, resolved. 6. Type 2 diabetes, stable. 7. History of suprapubic catheter placement by Urology. Aware. 8. Non-ST elevation myocardial infarction. Possibly related to takotsubo cardiomyopathy. She is on beta blockers and Angiotensin II receptor blockers, and also diuretics. 9. History of multiple sclerosis. Aware. She will continue to follow up with her neurologist as an outpatient. 10. Possible osteomyelitis. Infectious Disease Department on board. Like I mentioned before this patient will get a bone scan to rule out osteomyelitis. cc: Moses Emerson MD
--- NOTE | 2019-02-14 14:04 | INFECTIOUS DISEASE PROGRESS NO ---
DATE: 02/14/2019 PRESENT ILLNESS: The patient has multiple wounds on her legs and an oxacillin sensitive Staph aureus was grown from one of the wounds. The patient also has pulmonary venous congestion with possible underlying pneumonia. MEDICATIONS: The patient is on Ancef 2 g IV every 8 hours. This is day 1 of treatment with that antibiotic. PHYSICAL EXAMINATION: Vital Signs: Temperature is 97.7 degrees, pulse 91, respirations 18, blood pressure 96/48. Generally: This is an ill-appearing, obese female. She is in no acute distress. Head, eyes, ears, nose, and throat: She can hear my spoken words and see near objects. She does not have any white patches on her tongue. Neck: There is no pain when her head is moved. Lungs: Clear to auscultation. Cardiovascular: Heart rate is regular. Abdomen: Soft and not tender. Extremities: Patient has multiple wounds which have dressings on them. The dressings are intact. Neurologic: The patient is alert. She can move her arms but she is paralyzed in her legs and she has decreased sensation in her legs. LAB AND X-RAY: There is no new radiographic study and there is no new laboratory study either. ASSESSMENT: The patient has infected decubiti, mainly on her legs, and she also has pulmonary venous congestion with the possibility of some pneumonia present also. PLAN: My plan is to continue IV Ancef. I have ordered a triple-phase bone scan. Also, I have ordered for the first of the week a CBC, BMP, and a portable chest x-ray. COMORBIDITIES: She is paralyzed in her legs and she has multiple sclerosis and diabetes mellitus. cc: Kyaw Bernabe MD
--- NOTE | 2019-02-14 16:06 | Diag Imaging Result Doc PS360 ---
EXAM: 3 PHASE BONE SCAN HISTORY: osteomyelitis of legs TECHNIQUE: Nuclear medicine three-phase bone scan COMPARISON: None. Plain films not obtained. FINDINGS: 31.0 mCi MDP administered. There are areas of increased activity on the dynamic flow images in the area of the left ankle and right calcaneus. No other focal area of increased activity. Five, 10, and 15 minute delayed images show mild increased activity in the left ankle and right calcaneus. These areas persist on four hour delayed films. IMPRESSION: Possible osteomyelitis in the area of the right calcaneus and left ankle. Electronically signed by Herbie Banerjee 02/14/2019 4:03 PM
--- NOTE | 2019-02-14 16:08 | CARDIOLOGY PROGRESS NOTE ---
DATE: 02/14/2019 SUBJECTIVE: Ms. Brown has no complaints today. She is undergoing a bone scan. OBJECTIVE: Vital Signs: Physically, she is afebrile, heart rate 90, blood pressure 100/48. Her I's and O's continue to be somewhat negative during the course of the hospitalization. She has somewhat poor intake reported. She still has an overall positive fluid balance of 6.1 liters. General: Generally, no acute distress. Cardiovascular: She sounds to be in a regular rate and rhythm. She has no murmurs. She has no S3. She has trace lower extremity edema. Chest: Exam sounds clear. Poor inspiratory effort. No increased work of breathing. Abdomen: Soft, nontender. PERTINENT DATA: Limited echo yesterday demonstrates an ejection fraction of at least 65%. No pericardial effusion was identified. Her laboratory data: Today, it was only significant for a glucose check. Last chemistry and CBC were yesterday. ASSESSMENT: Ms. Brown is a 58-year-old female with a history of takotsubo cardiomyopathy on presentation that occurred in the setting of sepsis. PLAN: At this point, she has had normalization of her ejection fraction. We have her on Coreg, as well as losartan. I would continue these doses of medications currently. She is on oral Lasix as well. I do not have any further acute recommendations. I will arrange for an outpatient follow up around 1 month after discharge. cc: Norm Hernández MD
--- NOTE | 2019-02-14 16:45 | GENERAL SURGERY PROGRESS NOTE ---
DATE: 02/14/2019 SUBJECTIVE: I was notified by the nurse this morning of a new consult for me to evaluate her wounds. The patient says she has had multiple wounds on her legs, her hip and her lower back that date back years. They wax and wane in severity. She has had some drainage especially from the right knee wound, but overall they have been fairly stable and have been improving recently. She treats them with foam pads and frequent turning. She is immobilized due to paralysis secondary to treatment for her multiple sclerosis. OBJECTIVE: Vital Signs: Afebrile. Vital Signs are stable. General: She is awake, alert, oriented x3. Skin: She has some healed sacral decubitus ulcers that appear to have re- epithelialized. There is a small wound on the left hip over the trochanter. There is no exposed bone and no significant erythema or fluctuance, and the wound is very small. Over the right medial knee, there were several superficial areas of skin breakdown with some cloudy drainage but no fluctuance. Both ankles and feet demonstrate various small wounds consistent with pressure ulcers. There are varying degrees of granulation tissue present. There is no exposed bone although the soft tissue is thin over the left joel. LABORATORY DATA: Reviewed and not unremarkable. IMAGING: None pertinent. ASSESSMENT/PLAN: A 58-year-old female with multiple decubitus ulcers as described above. I do not think any require surgical debridement or have evidence of osteomyelitis. I would treat with Santyl ointment, offloading, and foam dressing such as Mepilex. cc: Mino Guerrero MD
[2019-02-15] MEDS: KEFZOL 2 GM/D5W 2 GM/50 ML IVPB IV SCH ×3 (01:09→18:18)
[2019-02-15] MEDS: DUONEB (A & A) INH SCH ×6 (03:30→23:39)
[2019-02-15] MEDS: PEPCID IV SCH ×2 (06:19→18:19)
[2019-02-15] MEDS: HUMULIN R SUBQ SCH ×4 (06:19→20:55)
[2019-02-15 07:57] LABS: BASO# 0.04 X1000 (0.0-0.2); BASO% 0.3 % (0.0-0.8); EOS% 6.1 % (0.0-10.0); HEMATOCRIT 29.5 % (37.0-47.0); HEMOGLOBIN 8.8 g/dL (12.0-16.0); IMM GRAN# 0.24 X1000 (0.0-0.04); IMM GRAN% 1.8 % (0.0-0.5); LYMPH# 3.55 X1000 (1.2-3.4); LYMPH% 27.2 % (20.5-51.1); MCH 28.1 PG (27-31); MCHC 29.8 g/dL (33-37); MCV 94.2 FL (81-99); MONO# 1.34 X1000 (0.11-0.59); MONO% 10.3 % (1.7-9.3); MPV 10.4 FL (7.4-10.4); NEUT# 7.08 X1000 (1.4-6.5); NEUT% 54.3 % (42.2-75.2); PLT 234 X1000 (130-400); RBC 3.13 XMIL (4.2-5.4); RDW 15.7 % (11.5-14.5); WBC 13.05 X1000 (4.8-10.8)
[2019-02-15 08:14] LABS: AGAP 9; BUN 21 mg/dL (8-22); CALCIUM 8.3 mg/dL (8.8-10.2); CHLORIDE 101 mmol/L (98-107); COSMO 291; CREATININE 0.5 mg/dL (0.5-0.9); ESTIMATED GFR > 60; GLUCOSE 215 mg/dL (70-104); POTASSIUM 4.2 mmol/L (3.5-5.1); SODIUM 141 mmol/L (136-145); TCO2 31 mmol/L (25-35)
[2019-02-15 08:23] LABS: BANDS 1 % (0-1); EOS 10 % (1-10); LYMPHS 29 % (21-51); MONO 12 % (1-9); SEGS 47 % (42-75)
[2019-02-15 08:24] LABS: ANISOCYTOSIS 1+; HYPOCHROM 1+; TARGET CELLS 1+
[2019-02-15] MEDS: NEXIUM PO SCH (10:35)
[2019-02-15] MEDS: LASIX PO SCH (10:36)
[2019-02-15] MEDS: KEPPRA PO SCH ×2 (10:36→20:55)
[2019-02-15] MEDS: LANOXIN PO SCH (10:36)
[2019-02-15] MEDS: LIORESAL PO SCH ×4 (10:36→20:55)
[2019-02-15] MEDS: COZAAR PO SCH (10:37)
[2019-02-15] MEDS: COREG PO SCH ×2 (10:37→20:55)
[2019-02-15] MEDS: ASPIRIN PO SCH (10:39)
[2019-02-15] MEDS: TYLENOL PO PRN ×2 (10:40→16:36)
--- NOTE | 2019-02-15 12:11 | Diag Imaging Result Doc PS360 ---
CHEST-PORTABLE - 02/15/2019 INDICATION: abnormal exam COMPARISON: 02/12/2019 FINDINGS: Stable right PICC line. Stable severely low lung volumes with right hemidiaphragm elevation. No focal infiltrates, pneumothorax, or pleural effusion. Heart size is normal. IMPRESSION: Low lung volumes but no acute disease otherwise. Electronically signed by Tano Weller 02/15/2019 12:09 PM
--- NOTE | 2019-02-15 15:19 | PROGRESS NOTE ---
DATE: 02/15/2019 SUBJECTIVE: No acute events overnight. Triple bone scan showed the possibility of osteomyelitis at the level of the right calcaneus and left ankle. I will discuss the case tomorrow with Infectious Disease Department. Probably this patient will need to have a PICC line and IV treatment for some weeks. OBJECTIVE: Vital Signs: Temperature 98 degrees, pulse 97, respiratory rate 17, blood pressure 117/54, oxygen saturation 97% on 3 L of nasal cannula. HEENT: Head normocephalic. No trauma. PERRLA. Neck: Supple. No JVD. No masses. Central trachea. Chest: Decreased breath sounds at the bases with some crepitus at the right side. Cardiovascular: RRR. Abdomen: Soft, nontender, nondistended. No hepatosplenomegaly. Extremities: Bilateral lower extremity dressing at the level of the feet. She has some weakness and deformity at the level of the lower extremities, which is chronic. LABORATORY: WBC 13, hemoglobin 8.8, hematocrit 29.5, platelets 234. Sodium 141, potassium 4.2, chloride 101, bicarbonate 31. BUN 21, creatinine 0.5, glucose 215, calcium 8.3. ASSESSMENT AND PLAN: 1. Hypoxemic respiratory failure secondary to pneumonia. The patient has been extubated a few days ago. She is better. Continue with oxygen supplementation, antibiotics. Infectious Disease Department on board. Pulmonary Department on board. 2. Septic shock, resolved. 3. Urinary tract infection, aware. No symptoms. 4. Possible osteomyelitis of the right calcaneus and left ankle in a patient with a positive culture that showed methicillin-sensitive Staphylococcus aureus. Probably this patient will need a PICC line and intravenous treatment at home. 5. Thrombocytopenia, resolved. 6. Type 2 diabetes, stable. 7. History of suprapubic catheter placement by Urology. Aware. 8. Non-ST elevation myocardial infarction, possibly related to takotsubo cardiomyopathy. She is on beta kim, angiotensin receptor blockers, and also diuretics. We will continue with the same treatment. 9. History of multiple sclerosis, aware. Follow up with her neurologist as an outpatient. cc: Moses Emerson MD
[2019-02-15] MEDS: BACTROBAN OINTMENT TOP SCH ×2 (16:36→20:54)
[2019-02-15] MEDS: SANTYL OINT TOP SCH (16:36)
--- NOTE | 2019-02-15 20:07 | PULMONOLOGY PROGRESS NOTE ---
DATE: 02/15/2019 SUBJECTIVE: The patient has no specific complaints. OBJECTIVE: The patient has been afebrile for the last 24 hours. BP 109/55, heart rate 96, respiratory rate 18, oxygen saturation 99% on 2 L per nasal cannula. HEENT: Pupils are equal and reactive. Oropharynx is clear. Neck is supple. Chest reveals slight decreased breath sounds, right base. No wheezing. No rhonchi. Cardiac exam: S1, S2. Abdomen is soft and without hepatosplenomegaly. Extremities reveal chronic edema. DIAGNOSTIC DATA: Chest x-ray reveals chronic elevation of the right hemidiaphragm, but no infiltrates or effusion. IMPRESSION: 1. A 58-year-old with resolving hypoxemic respiratory failure. 2. Resolving pneumonia. 3. Takotsubo cardiomyopathy. 4. Staphylococcus aureus infection of the foot. RECOMMENDATIONS: 1. Continue to wean and discontinue oxygen. 2. Continue management of takotsubo cardiomyopathy per Dr. Hernández. 3. The patient is an acceptable discharge from a pulmonary standpoint. cc: Santana Alarcon MD
[2019-02-16] MEDS: KEFZOL 2 GM/D5W 2 GM/50 ML IVPB IV SCH ×3 (00:17→16:55)
[2019-02-16] MEDS: DUONEB (A & A) INH SCH ×6 (03:15→23:10)
[2019-02-16] MEDS: PEPCID IV SCH ×2 (06:20→17:00)
[2019-02-16] MEDS: HUMULIN R SUBQ SCH ×4 (06:20→20:51)
[2019-02-16 08:04] LABS: AGAP 10; BUN 27 mg/dL (8-22); CALCIUM 8.6 mg/dL (8.8-10.2); CHLORIDE 99 mmol/L (98-107); COSMO 292; CREATININE 0.6 mg/dL (0.5-0.9); ESTIMATED GFR > 60; GLUCOSE 236 mg/dL (70-104); POTASSIUM 4.8 mmol/L (3.5-5.1); SODIUM 140 mmol/L (136-145); TCO2 31 mmol/L (25-35)
[2019-02-16 08:10] LABS: BASO# 0.06 X1000 (0.0-0.2); BASO% 0.5 % (0.0-0.8); EOS# 0.74 X1000 (0.0-0.7); EOS% 6.7 % (0.0-10.0); HEMATOCRIT 32.9 % (37.0-47.0); HEMOGLOBIN 9.8 g/dL (12.0-16.0); IMM GRAN# 0.23 X1000 (0.0-0.04); IMM GRAN% 2.1 % (0.0-0.5); LYMPH# 3.84 X1000 (1.2-3.4); LYMPH% 34.7 % (20.5-51.1); MCH 28.1 PG (27-31); MCHC 29.8 g/dL (33-37); MCV 94.3 FL (81-99); MONO# 0.88 X1000 (0.11-0.59); MONO% 7.9 % (1.7-9.3); MPV 10.3 FL (7.4-10.4); NEUT# 5.33 X1000 (1.4-6.5); NEUT% 48.1 % (42.2-75.2); PLT 321 X1000 (130-400); RBC 3.49 XMIL (4.2-5.4); RDW 16.4 % (11.5-14.5); WBC 11.08 X1000 (4.8-10.8)
[2019-02-16] MEDS: KEPPRA PO SCH ×2 (09:14→20:49)
[2019-02-16] MEDS: LIORESAL PO SCH ×4 (09:14→20:49)
[2019-02-16] MEDS: COREG PO SCH ×2 (09:14→20:49)
[2019-02-16] MEDS: COZAAR PO SCH (09:15)
[2019-02-16] MEDS: NEXIUM PO SCH (09:15)
[2019-02-16] MEDS: ASPIRIN PO SCH (09:15)
[2019-02-16] MEDS: LASIX PO SCH (09:15)
[2019-02-16] MEDS: LANOXIN PO SCH (09:16)
[2019-02-16] MEDS: BACTROBAN OINTMENT TOP SCH ×2 (10:27→20:48)
[2019-02-16] MEDS: SANTYL OINT TOP SCH (11:01)
--- NOTE | 2019-02-16 13:32 | PROGRESS NOTE ---
DATE: 02/16/2019 OBJECTIVE: No acute events overnight. Triple bone scan showed the possibility of osteomyelitis. Case has been discussed with Infectious Disease Department. Probably this patient will be discharged tomorrow with IV antibiotics. OBJECTIVE: Vital Signs: Temperature 98.2 degrees, pulse 82, respiratory rate 16, blood pressure 91/42, oxygen saturation 100% on nasal cannula. HEENT: Head normocephalic. No trauma. PERRLA. Neck: Supple. No JVD. No masses. Central trachea. Chest: Decreased breath sounds at the bases with some crepitus on the right side. Cardiovascular: RRR. Abdomen: Soft. Extremities: Bilateral lower extremity dressing at the level of the feet. She has some weakness and deformity at the level of the lower extremities which is chronic. LABORATORY: WBC 11, hemoglobin 9.8, hematocrit 32.9, platelet 321,000, sodium 140, potassium 4.8, chloride 99, bicarbonate 31, BUN 27, creatinine 0.6, glucose 236, calcium 8.6. ASSESSMENT AND PLAN: 1. Hypoxemic respiratory failure secondary to pneumonia, this patient has been extubated a few days ago, she is feeling better. Continue with oxygen supplementation, antibiotics. Infectious Disease Department on board as well as Pulmonary Department. 2. Septic shock resolved. 3. Urinary tract infection aware. 4. Likely osteomyelitis of the right calcaneus and left ankle in a patient with positive culture that showed methicillin sensitive Staphylococcus aureus, likely this patient will go home with a PICC line and IV antibiotics. 5. Thrombocytopenia resolved. 6. Type 2 diabetes stable. 7. History of suprapubic catheter placement by Urology, aware. 8. Non ST elevation myocardial infarction probably related to takotsubo cardiomyopathy. She is on beta kim, angiotensin receptor kim and diuretics, will continue with same management. 9. History of multiple sclerosis aware. cc: Moses Emerson MD
--- NOTE | 2019-02-16 16:04 | INFECTIOUS DISEASE PROGRESS NO ---
DATE: 02/16/2019 PRESENT ILLNESS: The patient has multiple wounds on her legs. Culture from the wounds grew oxacillin sensitive Staph aureus. The patient had a triple phase bone scan which showed osteomyelitis involving the right calcaneus and the left ankle. The patient has pulmonary venous congestion and possible underlying pneumonia. MEDICATIONS: This is seen the day 4 of treatment with Ancef 2 g IV every 8 hours. PHYSICAL EXAMINATION: Vital Signs: Temperature is 98.3 degrees, pulse 96, respirations 20, blood pressure 99/55. General: This is an obese, ill-appearing, middle-aged female. She is in no acute distress. Head, eyes, ears, nose, and throat: She can hear my spoken words and see near objects. She does not have any white patches on her tongue. Neck: No meningismus. Lungs: Clear to auscultation. Cardiovascular: Regular heart rate. Abdomen: Soft and nontender. Extremities: The patient has multiple wounds with dressings on them. The dressings are intact. Neurologic: The patient is alert and she can carry on a coherent conversation. She is paralyzed in her legs. LAB AND X-RAY: Chest x-ray shows no infiltrates. The patient's urine grew yeast. The bone scan showed possible osteomyelitis in the right calcaneus and the left ankle. Creatinine is 0.6. GFR is greater than 60. CBC shows a white count of 11,080, hemoglobin 9.8, and platelet count 321,000. ASSESSMENT AND PLAN: The patient has infected wounds with Staph aureus. She may have an underlying osteomyelitis as seen on the 3-phase bone scan. My plan is to continue Ancef for a total of 6 weeks. I have ordered an x-ray on the areas where the bone scan showed osteomyelitis. I have ordered x-rays on these areas and if the x-ray show there are bony changes, then I will reconsult Dr. Guerrero to see if he feels that there should be any surgery done on the bones that appear to have osteomyelitis and changes suggestive of bone. I am going to repeat the patient's chest x-ray tomorrow and see if there was a possible pneumonia seen an earlier x-ray or whether this is all due to pulmonary venous congestion. Hopefully there will not be any pneumonia present but if there is, hopefully it is getting better because the patient is receiving antibiotics. COMORBIDITIES: The patient is paralyzed in her legs. She has multiple sclerosis and diabetes mellitus. cc: Kyaw Bernabe MD
--- NOTE | 2019-02-16 16:47 | Diag Imaging Result Doc PS360 ---
ANKLE 2 VIEWS LEFT, FOOT COMPLETE RIGHT - 02/16/2019 INDICATION: osteomyelitis TECHNIQUE: X-ray left ankle two views, x-ray left foot two views COMPARISON: None FINDINGS: Bones are severely, diffusely osteopenic. There is diffuse pedal edema. No fractures or bony erosions. No soft tissue gas. IMPRESSION: Nonspecific findings. Electronically signed by Tano Weller 02/16/2019 4:44 PM
[2019-02-16] MEDS: AMARYL PO SCH (16:59)
[2019-02-16] MEDS ORDERED: GLUCOPHAGE PO SCH (17:00)
--- NOTE | 2019-02-16 20:56 | PULMONOLOGY PROGRESS NOTE ---
DATE: 02/16/2019 SUBJECTIVE: The patient is awake, alert, and conversant. She denies cough. She denies sputum production. OBJECTIVE: The patient is on room air. Oxygen saturation 98%.HEENT: Pupils are equal and reactive. Oropharynx clear. Neck: Supple. Chest: Reveals slight decreased breath sounds right base. No wheezing or rhonchi. Cardiac: Regular rate, normal S1, normal S2. Abdomen: Soft. Extremities: Reveal bandages on both lower extremities. LABORATORIES: White blood count 11.0, hemoglobin 9.8, platelet count 321,000, sodium 140, potassium 4.8, chloride 99, bicarbonate 31, BUN 27, creatinine 0.6. IMPRESSION: 58-year-old with 1. Resolving hypoxemic respiratory failure. Patient is now on [*] pneumonia. 2. Resolving pneumonia. 3. Takotsubo cardiomyopathy. 4. Staphylococcus aureus infection of the foot with possible osteomyelitis. RECOMMENDATION: 1. Continue bronchial hygiene. 2. No additional recommendations. Please recall pulmonary with questions. cc: Santana Alarcon MD
[2019-02-17] MEDS: KEFZOL 2 GM/D5W 2 GM/50 ML IVPB IV SCH ×3 (01:37→18:05)
[2019-02-17] MEDS: DUONEB (A & A) INH SCH ×4 (05:03→15:40)
[2019-02-17] MEDS: HUMULIN R SUBQ SCH ×3 (06:38→18:09)
[2019-02-17] MEDS: PEPCID IV SCH ×2 (06:39→18:11)
--- NOTE | 2019-02-17 07:49 | INFECTIOUS DISEASE PROGRESS NO ---
DATE: 02/17/2019 The patient has osteomyelitis in her legs. This was seen on triple phase bone scan. X-rays of the area show no evidence of chronic osteomyelitis or bone. Therefore, I plan to treat the patient for 6 weeks with IV cefazolin. I have requested that the patient see me back in the office at 3 weeks and then again at 6 weeks. However, she said the only way she could get back would be by ambulance and she did not have the money to pay for it. Therefore, we are going to go for the 6 week treatment course and at the end of that time, I will have the nurse remove her PICC. I do get weekly labs from the patient with blood being drawn through the PICC and also a nurse does see her every week. cc: Kyaw Bernabe MD
[2019-02-17 07:54] LABS: BASO# 0.04 X1000 (0.0-0.2); BASO% 0.4 % (0.0-0.8); EOS# 0.51 X1000 (0.0-0.7); EOS% 4.6 % (0.0-10.0); HEMATOCRIT 31.7 % (37.0-47.0); HEMOGLOBIN 9.5 g/dL (12.0-16.0); IMM GRAN# 0.14 X1000 (0.0-0.04); IMM GRAN% 1.3 % (0.0-0.5); LYMPH# 4.01 X1000 (1.2-3.4); LYMPH% 35.8 % (20.5-51.1); MCH 28.3 PG (27-31); MCV 94.3 FL (81-99); MONO# 0.99 X1000 (0.11-0.59); MONO% 8.8 % (1.7-9.3); MPV 10.5 FL (7.4-10.4); NEUT# 5.51 X1000 (1.4-6.5); NEUT% 49.1 % (42.2-75.2); PLT 336 X1000 (130-400); RBC 3.36 XMIL (4.2-5.4); RDW 16.9 % (11.5-14.5)
[2019-02-17 08:20] LABS: AGAP 9; BUN 41 mg/dL (8-22); CALCIUM 8.5 mg/dL (8.8-10.2); CHLORIDE 97 mmol/L (98-107); COSMO 292; CREATININE 0.7 mg/dL (0.5-0.9); ESTIMATED GFR > 60; GLUCOSE 284 mg/dL (70-104); POTASSIUM 4.6 mmol/L (3.5-5.1); SODIUM 136 mmol/L (136-145); TCO2 30 mmol/L (25-35)
[2019-02-17] MEDS: LASIX PO SCH (08:49)
[2019-02-17] MEDS: ASPIRIN PO SCH (08:49)
[2019-02-17] MEDS: AMARYL PO SCH ×2 (08:49→18:07)
[2019-02-17] MEDS: KEPPRA PO SCH (08:50)
[2019-02-17] MEDS: LANOXIN PO SCH (08:50)
[2019-02-17] MEDS: GLUCOPHAGE XR PO SCH ×3 (08:50→18:07)
[2019-02-17] MEDS: LIORESAL PO SCH ×3 (08:51→18:07)
[2019-02-17] MEDS: NEXIUM PO SCH (08:51)
[2019-02-17] MEDS: COREG PO SCH (08:55)
[2019-02-17] MEDS: COZAAR PO SCH (08:55)
[2019-02-17] MEDS: BACTROBAN OINTMENT TOP SCH (08:56)
--- NOTE | 2019-02-17 10:01 | Diag Imaging Result Doc PS360 ---
EXAM: CHEST-1 VIEW HISTORY: pneumonia TECHNIQUE: Chest single view COMPARISON: 02/15/2019 FINDINGS: Poor inspiratory effort. The heart is not enlarged. No change in the right-sided PICC line. The vessels are not distended. There are no infiltrates. No effusion identified. The right hemidiaphragm is elevated. IMPRESSION: Stable chest. No pneumonia. Electronically signed by Herbie Banerjee 02/17/2019 9:58 AM
[2019-02-17 11:25] VITALS: BP 90/43
[2019-02-17] MEDS: SANTYL OINT TOP SCH (14:54)
--- NOTE | 2019-02-17 15:31 | DISCHARGE SUMMARY ---
ADMISSION DATE: 02/03/2019 DISCHARGE DATE: 02/17/2019 ADMISSION DIAGNOSES: 1. Acute hypoxemic respiratory failure. 2. Pneumonia. 3. Septic shock. 4. Urinary tract infection. 5. Multiple decubitus ulcers. 6. Diabetes mellitus type 2. 7. Acute kidney injury. 8. Hyperkalemia. DISCHARGE DIAGNOSES: 1. Hypoxemic respiratory failure secondary to pneumonia. Was extubated a few days ago. Feeling better. Continued on oxygen supplementation with antibiotics as well, followed by Dr. Bernabe, Infectious Disease and followed by Pulmonary. 2. Septic shock, resolved. 3. Urinary tract infection, which really only showed yeast. 4. Osteomyelitis of the right calcaneus and left ankle in a patient with positive cultures of Staphylococcus aureus, showing Methicillin sensitivity Staphylococcus aureus. She is going to go home with a PICC line and IV antibiotics. 5. Thrombocytopenia, resolved. 6. Diabetes mellitus type 2, stable. 7. History of suprapubic catheter placement by Urology. 8. Non ST elevated myocardial infarction, probably related to takotsubo cardiomyopathy. She is on beta-blockers, ARBs, and diuretics and she will continue that same management. 9. History of multiple sclerosis. CONSULTATIONS: 1. Dr. Alarcon with Pulmonology. 2. Dr. Mino Guerrero for stage IV pressure ulcers. 3. Dr. Hernández for non ST elevation ID. 4. Dr. Ryan Graves to change out suprapubic catheter. 5. Dr. Kyaw Bernabe for MSSA osteomyelitis. 6. Wound Care. PROCEDURES/SURGERIES: 1. On 02/03/[address] Guerrero, there was a central line placed - that was ultrasound guided. 2. On 02/11/2019 she had a PICC line placed. 3. On 02/10/2019 suprapubic catheter replaced by Dr. Graves. HOSPITAL COURSE: On 02/03/2019, Ms. Arianna Brown, a 58-year-old female, presented to [facility] ER by EMS due to altered mental status. Apparently she was okay last night. When hospice came the morning of her admission, she was confused. She does get frequent urinary tract infections secondary to her suprapubic catheter and becomes septic. So, they sent her to the emergency room for evaluation. It was also noted that she had multiple diabetic wounds on her feet and a decubitus ulcer to the sacrum. She was very agitated on admission, requiring Ativan, but Ativan just happened to drop her blood pressure, but improved after IV fluids. She was still very agitated and required Geodon as well and restraints. After Geodon and Ativan she was lethargic but calm. She had leukocytosis and elevated CK. She was a little dehydrated. Due to the fact that she continued to be lethargic and low blood pressures after she received her sedation, she required Levophed and she actually required mechanical ventilation as well. She was started on vancomycin and Rocephin per sepsis protocol along with the IV fluid boluses. Dr. Guerrero put her central line in for her. Pulmonary was consulted for ventilatory management. On 02/04/2019 Cardiology was consulted because her troponin started to elevate as well along with her CK. At the time, it was felt that it was remarkable for acute ischemia. Cardiology felt like this was not ischemia at the time. After evaluating her and starting her on aspirin, her echocardiogram revealed that she had a markedly reduced ejection fraction and felt like it was more takotsubo cardiomyopathy. The ejection fraction was down to 20%. She had several failed attempts of extubation. She just was not strong enough. She was eventually extubated on 02/06/2019 and started out on mask oxygen but was able to decrease to nasal cannula by the next day. She was also weaned off the Levophed eventually. Given the fungal urinary tract infection she had a consult for Dr. Graves who replaced her suprapubic catheter without any complications. She had multiple areas of wounds. She had one in particular that was Staph aureus but Methicillin sensitive on the right foot, and for that Dr. Bernabe followed, but it was penicillin resistant. She had a PICC line placed so she could start getting IV antibiotics hopefully at home. Her wounds that she had reported by the wound care nurse, there was a left hip healing stage IV with red wound bed and no granulation. The size was 1 x 0.7 x 0.6. There was also one at right medial heel, stage IV, with bone palpable, measuring 4 x 3.9 x 0.1, no granulation but viable tissue noted. She had a right lateral lower leg stage III with yellow and brown slough measuring 3 x 3 x 0.1. She had a left medial malleolus red with yellow slough measuring 2.8 x 2.7 x 0.1 stage III. For all of those it was recommended to use Santyl. Then, there was an abrasion to the right knee. It was slightly warm with scabbing and Bactroban was recommended twice daily to that. Reevaluation by the wound care nurse on 02/13/2019 showed that all wounds were improving and to continue the current treatment on those. Her vitals are stable. Blood pressure does get a little low from time to time but otherwise is stable and that is while she is being on Coreg and Lasix. She is going to be discharged home with IV antibiotics which will be cefazolin 2 grams IV q 8 hours for a total of six weeks. DISCHARGE VITAL SIGNS: Temperature is 98.1, heart rate 80, respiratory rate 15, blood pressure 90/43, O2 saturation is 100% on room air. DISCHARGE LAB DATA: White blood cells 11,000, hemoglobin 9, hematocrit 31, platelet count 336,000. Sodium 136, potassium 4.6, BUN 41, creatinine 0.7, glucose 284, calcium 8.5. PERTINENT IMAGING: All on 02/03/2019, there was a chest x-ray, negative exam; head CT with chronic ischemic microvascular disease, no acute findings; at 3:15 that day, chest x-ray showed right IJ catheter in the right axillary vein and then at almost 5:00 p.m. chest x-ray showed atelectasis versus pneumonia in the right upper lobe and endotracheal tube is at the doretha and then at 1838 left IJ central venous line was in proper position. On 02/05/2019, abdominal x-ray showed prominent constipation; chest x-ray showed mild interval improvement. And, from that time on had daily chest x-rays, one had a little pulmonary edema but essentially was improving. Looks like on 02/09/2019 there might have been some pleural fluid, but otherwise improving. On 02/14/2019 she had a nuclear bone scan to rule out osteomyelitis of the legs and the impression was possible osteomyelitis in the area of the right calcaneus and left ankle. Her chest x-ray today shows stable chest, no pneumonia, and the right PICC line is in place. There is a right hemidiaphragm. She had multiple EKGs while she was here. There was an echocardiogram performed on 02/04/2019 which showed mild MR, mild TR, pulmonary pressure of 41, severely reduced systolic function with an estimated ejection fraction of 20% and takotsubo cardiomyopathy. There was a repeat echocardiogram on 02/13/2019, it was limited, with a return of improved ejection fraction with systolic estimated left ventricular ejection fraction back up to 65%. Her last EKG was 02/05/2019 and it showed normal sinus rhythm, rate of 88, QTC was 510. DISCHARGE ACTIVITY: As tolerated and take care to prevent falls. DISCHARGE DIET: Soft diet, cardiac. DISCHARGE MEDICATIONS: 1. Glimepiride 4 mg p.o. daily. 2. Baclofen 20 mg p.o. four times daily. 3. Cozaar 25 mg p.o. daily. 4. Ditropan 15 mg p.o. twice daily. 5. Epi Pen 0.3 mg intramuscular p.r.n. 6. Metformin extended release 500 mg four times daily. 7. Keppra 500 mg p.o. twice daily. 8. Lactulose 10 grams p.o. twice daily. 9. Lasix 40 mg p.o. daily. 10.Nexium 40 mg p.o. daily. 11.Zofran 4 to 8 mg p.o. every four to six hours p.r.n. 12.Aspirin 81 mg p.o. daily. 13.Bactroban topical twice daily. 14.Coreg 6.25 mg p.o. twice daily. 15.Digoxin 125 mcg p.o. daily. 16.Santyl topically to wounds and ulcers. 17.Eye drops, both eyes, four times daily as needed. 18.Ultram 50 mg p.o. every 12 hours p.r.n. 19.Cefazolin 2 grams IV q 8 hours for six weeks total. PHYSICIAN FOLLOWUPS: 1. Dr. Marc Vargas. 2. Dr. Mino Guerrero. 3. Dr. Kyaw Bernabe at three weeks into antibiotics and again at six week sharon. 4. Dr. Courtney. 5. Dr. Norm Hernández in about one month. DISCHARGE INSTRUCTIONS: Apply Santyl to all areas as prescribed, take all medications as prescribed, if condition changes contact physician and/or return to the emergency department. Changes may include, but are not limited to shortness of breath, increased fatigue, excessive bleeding, unexplained weight loss or gain, unmanageable pain, signs or symptoms of infection. WOUND CARE INSTRUCTIONS: Please apply Santyl to multiple areas of wounds at least twice a day. DISCHARGE TIME - DISPOSITION: Home with home health. 50 minutes discharging this patient Dictated by RAMILA Henry for Moses Emerson MD cc: RAMILA Henry MD Jason R. Seale, MD Leroy F. Harris, MD Peter Johnson, MD Dr. Jindal MTDD
== END 2019-02-17 19:26 | disposition home health service (06) | DRG 871 ==
LOC: SUPCPDRO → ED 10:32 → SUATTDRO 15:25 → EDIPHOLD 15:25 → ICU 17:55 → 3N 02-09 15:00
PROVIDERS: ATTEND Internal Medicine
CPT/HCPCS: 31500; 36569; 70450; 71010; 71045; 73600; 73630; 74000; 74018; 78315; 80048; 80053; 81001; 82306; 82330; 82550; 82553; 82784; 82805; 82948; 83605; 83735; 84100; 84484; 85025; 85610; 86022; 87040; 87070; 87077; 87088; 87186; 87205; 93005; 93010; 93306; 93308; 94002; 94003; 94150; 94640; 94760; 94761; 96365; 96366; 96367; 96372; 96375; 96376; 99285; 99291; A9270; A9503; C8929; J0330; J0461; J0610; J0690; J0692; J0696; J1450; J1630; J1650; J1940; J1953; J2020; J2060; J2250; J3370; J3475; J3480; J3486; J7030; J7050; J7070; P9047; Q9957; S0028; S0171; XXXXX

== ENCOUNTER 2019-07-23 19:16 | Inpatient (IN) ==
[2019-07-23 21:19] LABS: BASO# 0.04 X1000 (0.0-0.2); BASO% 0.4 % (0.0-0.8); EOS# 0.35 X1000 (0.0-0.7); EOS% 3.5 % (0.0-10.0); HEMATOCRIT 44.2 % (37.0-47.0); HEMOGLOBIN 14.1 g/dL (12.0-16.0); IMM GRAN# 0.05 X1000 (0.0-0.04); IMM GRAN% 0.5 % (0.0-0.5); LYMPH# 3.09 X1000 (1.2-3.4); LYMPH% 31.2 % (20.5-51.1); MCH 28.9 PG (27-31); MCHC 31.9 g/dL (33-37); MCV 90.6 FL (81-99); MONO# 1.09 X1000 (0.11-0.59); MPV 11.4 FL (7.4-10.4); NEUT# 5.29 X1000 (1.4-6.5); NEUT% 53.4 % (42.2-75.2); PLT 179 X1000 (130-400); RBC 4.88 XMIL (4.2-5.4); RDW 17.4 % (11.5-14.5); WBC 9.91 X1000 (4.8-10.8)
--- NOTE | 2019-07-23 21:44 | EKG Report ---
Test Performed on : 07/23/2019 9:39:10 PM Test Reason : altered mental status Blood Pressure : / mmHG Vent. Rate : 061 BPM Atrial Rate : 061 BPM P-R Int : 194 ms QRS Dur : 074 ms QT Int : 410 ms P-R-T Axes : 043 -06 184 degrees QTc Int : 412 ms Normal sinus rhythm. Low voltage QRS Nonspecific T wave abnormality Abnormal ECG When compared with ECG of 05-FEB-2019 07:54, Vent. rate has decreased BY 59 BPM Minimal criteria for Anterior infarct are no longer present Non-specific change in ST segment in Anterior leads Unconfirmed Result
--- NOTE | 2019-07-23 21:50 | Diag Imaging Result Doc PS360 ---
EXAM: CT ABDOMEN/PELVIS W/O CONTRAST HISTORY: abdo pain TECHNIQUE: CT abdomen and pelvis without contrast COMPARISON: 10/10/2014 FINDINGS: There are groundglass infiltrates in the lower lungs. No pleural effusions. The gallbladder has been removed. There is fatty infiltration of the liver. There is debris in the distal esophagus. Normal spleen, pancreas, and adrenal glands. Tiny nonobstructing left renal stones. No right renal stone. No hydronephrosis. No aortic aneurysm. There is a large amount of stool throughout the colon. There is a large amount of stool in the rectum with a diameter of 8.0 cm. Suprapubic catheter is in the urinary bladder. No ascites. No abscess. The uterus is been removed. The bones are osteopenic. There are fractures to each femoral neck. IMPRESSION: 1.Severe constipation with fecal impaction 2.Cholecystectomy 3.Possible reflux with debris in the distal esophagus 4.There is fatty infiltration of the liver 5.Nephrolithiasis 6.Small groundglass infiltrates 7.Hysterectomy 8.The bones are osteopenic and there are fractures to each femoral neck This exam was performed using automated exposure control, adjustment of mA or kV according to patient size, and/or use of iterative reconstruction technique. Electronically signed by Herbie Banerjee 07/23/2019 9:48 PM
[2019-07-23 22:04] LABS: URINE SOURCE CATH
[2019-07-23 22:45] LABS: BILIRUBIN URINE NEGATIVE (NEGATIVE); BLOOD URINE MODERATE (NEGATIVE); COLOR YELLOW; GLUCOSE URINE NEGATIVE (NEGATIVE); KETONE URINE 10 mg/dL (NEGATIVE); LEUKOCYTES URINE LARGE (NEGATIVE); NITRITE URINE POSITIVE (NEGATIVE); PROTEIN URINE 70 mg/dL (NEGATIVE); SP GRAVITY URINE 1.017; TURBIDITY URINE TURBID (CLEAR); UROBILINOGEN URINE NORMAL (NORMAL)
[2019-07-23 22:53] LABS: UR EPITHELIAL CELLS <10 /HPF (<10); URINE BACTERIA 4+ /HPF; URINE RBC TNTC /HPF (<10); URINE WBC TNTC /HPF (<10)
[2019-07-23 23:08] LABS: URINE CASTS NONE SEEN; URINE CRYSTALS NONE SEEN; URINE YEAST PRESENT
[2019-07-23 23:09] LABS: URINE SMALL ROUND CELLS NONE SEEN
[2019-07-24] MEDS ORDERED: LEVAQUIN 500 MG/D5W 500 MG/100 ML IVPB IV ONE (00:46)
--- NOTE | 2019-07-24 00:57 | PROVIDER DOCUMENTATION ---
This chart was entered by Kallie Ashley Scribe, acting as scribe for Uri Scherer MD. HPI-General Adult - General Chief Complaint: Altered Mental Status Stated Complaint: AMS Time Seen by Provider: 07/23/19 21:00 Source: patient Allergies/Adverse Reactions: Patient Allergies Allergy/AdvReac Type Severity Reaction Status Date / Time pantoprazole [From Protonix] Allergy Intermediate NAUSEA/VOMI Verified 02/03/19 11:59 TING Penicillins Allergy Intermediate HIVES Verified 02/03/19 11:59 codeine [Codeine] Allergy Unknown Unknown Verified 02/03/19 11:59 tetracycline [Tetracycline] Allergy Unknown Unknown Verified 02/03/19 11:59 adhesive tape Allergy ITCHING Verified 02/03/19 11:59 latex Allergy ITCHING Verified 02/03/19 11:59 meperidine HCl * Allergy ITCHING Verified 02/03/19 11:59 [From Demerol] Home Medications: Home Medication List Medication Instructions Recorded Confirmed Last Taken Type Baclofen 20 mg PO 409/12/12 02/04/19 04/21/15 18:00 History 20 MG Esomeprazole [Nexium] 40 mg PO DAILY 09/12/12 02/04/19 04/21/15 06:00 History 40 MG Oxybutynin Chloride [Ditropan Xl] 15 mg PO BID 09/12/12 02/04/19 04/21/15 08:00 History 15 MG Levetiracetam [Keppra] 500 mg PO BID 09/17/14 02/04/19 04/21/15 10:00 History 500 MG Glimepiride [Amaryl] 4 mg PO DAILY 10/09/14 02/16/19 04/21/15 10:00 History 2 MG Losartan [Cozaar] 25 mg PO DAILY 04/22/15 02/04/19 04/21/15 09:00 History 50 MG Furosemide [Lasix] 40 mg PO DAILY 08/30/18 02/04/19 Unknown History Epinephrine [Epipen 2-Nato] 0.3 mg IM PRN PRN 10/30/18 02/04/19 Unknown History Ondansetron HCl [Zofran] 4 - 8 mg PO Q4-6H PRN PRN 10/30/18 02/04/19 Unknown History Polyvinyl Alcohol Eye Drops 1 drp BOTH EYES 4XDAY PRN 30 Days 11/04/18 02/04/19 Unknown Rx [Tearisol Oph Solution] #1 bottle Tramadol [Ultram] 50 mg PO Q12H PRN PRN 30 Days #60 11/04/18 02/04/19 Unknown Rx tab Lactulose 10 gm PO BID 02/04/19 02/04/19 Unknown History Metformin E.r. [Glucophage Xr] 500 mg PO 4XDAY 02/16/19 02/16/19 Unknown History Aspirin 81 mg PO DAILY chewtab 02/17/19 Unknown Rx Carvedilol [Coreg] 6.25 mg PO BID #120 tab 02/17/19 Unknown Rx Collagenase Clostridium Oint 1 applic TOP DAILY oint 02/17/19 Unknown Rx [Santyl Oint] Digoxin [Lanoxin] 125 microgm PO DAILY #90 tab 02/17/19 Unknown Rx Mupirocin Ointment [Bactroban 1 applic TOP BID tube 02/17/19 Unknown Rx Ointment] - History of Present Illness -Gen Adult Nature of Presenting Problems: pt is a 58 yr old female presenting via EMS with 5 day complaint of worsening AMS and back pain. family reports hx of UTIs. pt has not been responding to family, awake but refuses to answer questions. mother reports pt was admitted for UTI 3 months ago. Location of Pain/Injury: reports: back Pain Radiation: reports: no radiation Quality of Pain: reports: dull Severity: reports: moderate Onset/Duration: reports: 5 days ago Timing: reports: still present Context/Activities at Onset: reports: rest Modifying Factors: improves with: nothing Associated Symptoms: reports: fatigue, genitourinary problems, weakness. denies: chest pain, diarrhea, fever/chills, nausea, shortness of breath, vomiting Similar Symptoms Previously?: Yes Recently seen or treated by another doctor?: No Review of Systems - Adult - REVIEW OF SYSTEMS - ADULT Constitutional: reports: fatique. denies: chills, fever Eyes: reports: no symptoms reported Ears, Nose, Mouth & Throat: denies: ear pain, sinus problem, throat pain Cardiovascular: denies: chest pain, palpitations, syncope Respiratory: denies: cough, shortness of breath Gastrointestinal: reports: abdominal pain. denies: diarrhea, nausea, vomiting Genitourinary: reports: frequent UTI's, other (cloudy, foul urine). denies: flank pain Musculoskeletal: reports: back pain Integumentary: reports: no symptoms reported Neurological: denies: dizziness/vertigo, headache/migraines Psychiatric: reports: no symptoms reported Endocrine: reports: no symptoms reported Hematologic/Lymphatic: reports: no symptoms reported Allergic/Immunologic: reports: no symptoms reported All Other Systems: Reviewed and Negative Past History - Adult - PAST MEDICAL HISTORY-ADULT Review of Records: reports: Old Records Reviewed, Nursing Assessment Review, Medications Reviewed, Social history reviewed & non-contributory. Major Childhood Illnesses: reports: denies history Cardiovascular: reports: HTN Respiratory: reports: denies history Gastrointestinal: reports: GERD Obstetrical/Gynecological: reports: denies history Genitourinary: reports: denies history Musculoskeletal: reports: denies history Neurological: reports: Multiple Sclerosis (paraplegic with contractures) Endocrine/Immune: reports: Diabetes Other Conditions: reports: denies history - PRIOR SURGERIES/PROCEDURES Surgical/Procedure History: reports: cholecystectomy, hysterectomy, indwelling device (supapubic cath), tonsillectomy, orthopedic (extremity) (leg straightening due to chronic contractures secondary to MS) - IMMUNIZATION STATUS Childhood Immunizations: See Nurse Assessment Flu Vaccine: See Nurse Assessment - FAMILY HISTORY Family History: reviewed, not pertinent - SOCIAL HISTORY Smoking: non-smoker Substance Use: none/never Living Situation: family Physical Exam-General - PHYSICAL EXAM-ADULT Initial Vital Signs Reviewed: Yes - CONSTITUTIONAL General Appearance: alert, no apparent distress - EYES Eyes: PERRL/EOMI - HEAD, EARS, NOSE, MOUTH & THROAT HENMT: normocephalic/atraumatic, moist mucous membranes, normal ENT inspection - NECK Neck: non-tender, full range of motion, supple, normal inspection - RESPIRATORY Respiratory: chest non-tender, lungs clear, normal breath sounds, no respiratory distress, no accessory muscle use - CARDIOVASCULAR Cardiovascular: normal peripheral pulses, regular rate, rhythm, no edema - GASTROINTESTINAL (ABDOMEN) Abdominal Exam: normal bowel sounds, soft, tenderness (suprapubic tenderness) - LYMPHATIC Lymphatic: no adenopathy - MUSCULOSKELETAL Back Exam: normal inspection, no CVA tenderness, no vertebral tenderness Extremity: normal range of motion, non-tender - SKIN Integumentary: normal color, normal turgor, warm/dry - PSYCHIATRIC Psych/Mental Status: normal mood/affect Progress - PLAN OF CARE/RESULTS Progress/Plan/Lab Results: Vital Signs - 8 hr 07/23/19 19:59 Temperature 97.8 F Pulse Rate 76 Respiratory Rate 18 Blood Pressure 129/76 O2 Sat by Pulse Oximetry 96 Orders Category Date Time Status CBC WITH ELECTRONIC DIFF [HEME] Stat Lab 07/23/19 21:01 Ordered CMP [COMPREHENSIVE METABOLIC PANEL] [CHEM] Stat Lab 07/23/19 21:01 Ordered URINALYSIS W/POSS RFLX CULT [URINALYSIS] Stat Lab 07/23/19 21:01 Uncollected Result Diagrams: 07/23/19 20:40 07/23/19 20:40 - EKG 1 Time of EKG reading by physician:: 21:39 EKG Read and Signed by:: Uri Scherer EKG Interpretation (*Must complete 3 of following elements*): Abnormal (non specific T abnormality) Rate: 61 Rhythm: nsr [place]: normal QRS: other (low voltage QRS) [place] Interval: normal - CONSULTS/PCP/HOSPITALIST Notification #1 *Consult/PCP/Hospitalist*: Dr Medina Time Discussed: 01:07 Consult Disposition: Will see in ED, Admit Departure - Departure Date of Disposition Decision: 07/24/19 Time of Disposition Decision: 00:53 DIAGNOSIS: Urinary tract infection, Altered mental status, Constipation, Fracture of f emoral neck Disposition: ADMITTED INPATIENT 09 Certified Medical Emergency: Emergent Condition: Fair Referrals and Follow-Ups: None,PCP [Primary Care Provider] - - Critical Care Note This patient required my direct & personal management of CC.: No Attestation - Physician/ JOCE Attestation Patient care was provided by Advanced Practice Provider:: No The physician spent face to face time with patient:: Yes Advanced Practice Provider documentation review:: Supervising physician onsite and consulted in the evaluation and care of this patient. The physician did have a face to face encounter with the patient. This chart was documented by the indicated scribe, (Kallie Ashley, Tayla) and accurately reflects the services I performed and decisions made by me, Uri Scherer MD, as attested by the provider's signature.
[2019-07-24 01:05] LABS: ALB/GLOB RATIO 0.9; ALBUMIN 3.5 g/dL (3.5-5.0); CALCIUM 9.1 mg/dL (8.8-10.2); CREATININE 1.1 mg/dL (0.5-0.9); POTASSIUM 5.7 mmol/L (3.5-5.1); TOTAL BILIRUBIN 0.45 mg/dL (0.20-1.00); TOTAL PROTEIN 7.4 g/dL (6.3-8.3)
--- NOTE | 2019-07-24 06:35 | HISTORY AND PHYSICAL ---
PRIMARY CARE PROVIDER: Marc Vargas MD. CHIEF COMPLAINT: Altered mental status. HISTORY OF PRESENT ILLNESS: Ms. Brown is a 58-year-old female well known to our service with complaints of altered mental status, UTI, MS with paralysis, as well as contractures of the lower extremities, noted to be bed-bound for 2 years and cared for by her mother in hospice, multiple decubitus ulcers on lower extremities and sacrum, hypertension, type 2 diabetes, who was brought into the ED again because of altered mental status. She was found to have a urinary tract infection. She was initiated on IV antibiotics. We will continue with further care and treatment. PAST MEDICAL HISTORY: 1. MS with paralysis Prilosec as well as contracture of lower extremities. 2. Seizure disorder. 3. Multiple decubitus on her lower extremities. 4. Hypertension. 5. Type 2 diabetes. 6. Bed-bound. PAST SURGICAL HISTORY: 1. Cholecystectomy. 2. Hysterectomy. 3. Tonsillectomy. 4. Placement of a suprapubic catheter. FAMILY HISTORY: Dad with diabetes and heart disease. SOCIAL HISTORY: She lives with her mother, has been on hospice care. No tobacco, alcohol or illicit drug use. ALLERGIES: To Protonix, penicillin, codeine, tetracyclines, adhesive tape, latex, and Demerol. HOME MEDICATIONS: Unknown. LABORATORY DATA: Urinalysis did show a urinary tract infection. [facility] is currently down. DIAGNOSTIC DATA: [facility] is down. ASSESSMENT AND PLAN: 1. Altered mental status with urinary tract infection. We will continue with IV antibiotics and frequent neurologic checks. Await culture. Continue IV fluids. 2. Diabetes. We will continue with fingerstick blood sugars and sliding scale. 3. Seizure disorder. 4. Multiple decubitus ulcers on lower extremities and sacrum. We will consult Wound Care, per mother's report they are all healed, they are currently bandaged and covered. 5. Hypertension. 6. Further recommendation to follow physician evaluation, laboratory and diagnostic data. Dictated by RAMILA Tucker for Saulo Dillon MD I have performed a face to face diagnostic evaluation. Labs/ Xrays- reviewed. Exam- Chest- clear, CV- regular, Neuro- confused. A/P- AMS, UTI- Admit , Neuro check, check urine culture. IV ABX. Dr. Dillon cc: MD Marc Omalley MD MTDD
[2019-07-24] MEDS ORDERED: TYLENOL PO PRN (08:10)
[2019-07-24] MEDS ORDERED: ZOFRAN IV PRN (08:10)
[2019-07-24] MEDS: NS 1,000 ML IV SCH ×3 (08:48→22:35)
[2019-07-24] MEDS ORDERED: ULTRAM PO PRN (12:18)
[2019-07-24] MEDS ORDERED: TEARISOL OPH SOLUTION BOTH EYES PRN (12:18)
[2019-07-24] MEDS: LIORESAL PO SCH ×3 (15:47→22:13)
[2019-07-24] MEDS: DULCOLAX PR SCH ×2 (15:47→22:15)
[2019-07-24] MEDS: MAXIPIME 1 GM in NS 50 ML IV SCH (15:48)
[2019-07-24] MEDS: KEPPRA PO SCH ×2 (15:48→22:13)
--- NOTE | 2019-07-24 15:50 | PROGRESS NOTE ---
DATE: 07/24/2019 INTERVAL HISTORY: No acute events. SUBJECTIVE: Patient appears much more alert. She states she is no longer feeling confused. She wants to eat. She states she probably had a UTI. Her suprapubic catheter, however, was changed just a week ago. She has not had any more fever episodes. VITALS: Temperature 98.2 degrees, pulse 59, respiratory rate 13, blood pressure 124/60, saturating 98% on 2 L nasal cannula. PHYSICAL EXAMINATION: General: Awake, alert, oriented. She is moving bilateral upper extremities. Air entry bilaterally equal, no wheeze or crackles. CARDIOVASCULAR: Normal, no murmur or gallop. No tachycardic.Abdomen: Soft, nontender. She states she had multiple bowel movements. There is a suprapubic catheter. There is some crusting of blood around it. The urine appears clear. LABS: No leukocytosis. Her potassium is 4.9. She did have significant pyuria and hematuria. ASSESSMENT AND PLAN: 1. Likely complicated UTI associated with suprapubic catheter. 2. Acute kidney injury, hematuria and nephrolithiasis. 3. Acute encephalopathy due to urinary tract infection. 4. Kax-njsxcix-dfizmyhwi diabetes mellitus. 5. History of seizure, History of multiple sclerosis and bilateral lower extremity paralysis with multiple decubitus ulcers, bed bound status since last few years 7. Nephrolithiasis. 9. H/o CHF with reduced EF, Takotsubo Cardiomyopathy, Hypertension 10. bilateral femoral neck fracture. PLAN: I will change antibiotics to intravenous cefepime considering previously she had gram- negative bacteria resistant to levofloxacin. I will follow up with final urine culture results. I will resume most of her home medication plan of care discussed with her. All questions have been answered. cc: Alberto Beasley MD [facility]
[2019-07-24] MEDS: HUMALOG SUBQ SCH ×2 (16:27→22:13)
[2019-07-24] MEDS: COREG PO SCH (22:13)
[2019-07-24] MEDS: LOVENOX SUBQ SCH (22:13)
[2019-07-25] MEDS ORDERED: LEVAQUIN 500 MG/D5W 500 MG/100 ML IVPB IV SCH (01:30)
[2019-07-25] MEDS: MAXIPIME 1 GM in NS 50 ML IV SCH ×2 (02:18→14:15)
[2019-07-25 06:17] LABS: BASO# 0.03 X1000 (0.0-0.2); BASO% 0.4 % (0.0-0.8); EOS# 0.35 X1000 (0.0-0.7); EOS% 5.2 % (0.0-10.0); HEMATOCRIT 40.2 % (37.0-47.0); HEMOGLOBIN 12.6 g/dL (12.0-16.0); IMM GRAN# 0.02 X1000 (0.0-0.04); IMM GRAN% 0.3 % (0.0-0.5); LYMPH# 2.42 X1000 (1.2-3.4); LYMPH% 35.7 % (20.5-51.1); MCH 29.1 PG (27-31); MCHC 31.3 g/dL (33-37); MCV 92.8 FL (81-99); MONO% 7.4 % (1.7-9.3); MPV 11.5 FL (7.4-10.4); NEUT# 3.45 X1000 (1.4-6.5); PLT 137 X1000 (130-400); RBC 4.33 XMIL (4.2-5.4); RDW 16.9 % (11.5-14.5); WBC 6.77 X1000 (4.8-10.8)
[2019-07-25] MEDS: NEXIUM PO SCH (06:25)
[2019-07-25] MEDS: NS 1,000 ML IV SCH (06:26)
[2019-07-25] MEDS: HUMALOG SUBQ SCH ×4 (06:26→20:32)
[2019-07-25 06:35] LABS: AGAP 11; ALB/GLOB RATIO 0.8; ALBUMIN 2.9 g/dL (3.5-5.0); ALKALINE PHOSPHATASE 103 U/L (32-104); BUN 20 mg/dL (8-22); CHLORIDE 107 mmol/L (98-107); COSMO 285; CREATININE 0.5 mg/dL (0.5-0.9); ESTIMATED GFR > 60; GLUCOSE 160 mg/dL (70-104); GOT 47 U/L (10-30); GPT 24 U/L (10-36); MAGNESIUM 2.3 mg/dL (1.5-2.7); POTASSIUM 4.9 mmol/L (3.5-5.1); SODIUM 140 mmol/L (136-145); TCO2 22 mmol/L (25-35); TOTAL BILIRUBIN 0.25 mg/dL (0.20-1.00); TOTAL PROTEIN 6.5 g/dL (6.3-8.3)
--- NOTE | 2019-07-25 08:02 | PROGRESS NOTE ---
DATE: 07/25/2019 INTERVAL HISTORY: No acute events overnight. SUBJECTIVE: She is feeling fine. Denies any complaints. She has been able to eat. She states she has had a bowel movement. No new complaints. VITALS: Temperature 97.4 degrees, pulse 65, respiratory rate 17, blood pressure 115/74, and saturating 100% on 2 L cannula. PHYSICAL EXAMINATION: General: Does not appear in acute distress. HEENT: Oral cavity is moist. Lungs: Air entry bilaterally equal. No wheeze, rhonchi, or crackles. Cardiovascular: S1, S2 normal. No murmur or gallop. Abdomen: Soft and nontender. Pelvic: There is suprapubic catheter with some crusting of blood around it. The urine appears clear. Extremities: She has multiple wounds affecting bilateral lower extremities. Her sensation intact in legs, but no sensation in feet. Bilateral upper extremities, she is able to move. Neurologic: She appears alert and oriented. LABORATORY: CBC is unremarkable. Hyperkalemia is resolved. Acute kidney injury has also resolved. Urine culture is in lab. ASSESSMENT AND PLAN: 1. Complicated UTI associated with suprapubic catheter. Continue intravenous cefepime, and follow up final urine culture results. Her suprapubic catheter was changed just a week ago. 2. Acute kidney injury, hematuria, and nephrolithiasis. She states she has known nephrolithiasis, and she follows up with Urology. Currently, her urine appears clear, and acute kidney injury has resolved after intravenous fluid resuscitation. I will have her outpatient Urology follow-up. 3. Acute encephalopathy due to UTI on presentation has resolved; continue sliding scale insulin for history of [id number]-qajmkohrc diabetes mellitus. 4. Continue Keppra for history of seizures; oxybutynin for urinary bladder spasm; baclofen and tramadol for muscle spasm and chronic pain. 5. Fecal impaction. At the time of admission, now resolved. I will keep her on bisacodyl suppositories. 6. I will continue carvedilol and digoxin for history of Takotsubo congestive cardiomyopathy and congestive heart failure. She is not listed to be taking any anticoagulation. I will keep her on enoxaparin for DVT prophylaxis. 7. Disposition: Awaiting urine culture results. 8. Plan of care discussed with her. Accordingly, I will consider discharging in the next 24 hours. cc: Alberto Beasley MD
[2019-07-25] MEDS ORDERED: DITROPAN XL PO SCH (09:00)
[2019-07-25] MEDS: LIORESAL PO SCH ×4 (09:23→20:32)
[2019-07-25] MEDS: COREG PO SCH ×2 (09:23→20:32)
[2019-07-25] MEDS: LANOXIN PO SCH (09:23)
[2019-07-25] MEDS: KEPPRA PO SCH ×2 (09:23→20:32)
[2019-07-25] MEDS: DULCOLAX PR SCH ×2 (09:24→20:32)
[2019-07-25] MEDS: LOVENOX SUBQ SCH (18:10)
[2019-07-26] MEDS: MAXIPIME 1 GM in NS 50 ML IV SCH (02:45)
[2019-07-26] MEDS: NEXIUM PO SCH (06:17)
[2019-07-26] MEDS: HUMALOG SUBQ SCH ×4 (06:17→21:22)
--- NOTE | 2019-07-26 08:56 | PROGRESS NOTE ---
DATE: 07/26/2019 INTERVAL HISTORY: I was informed by the nursing team that she did have episodes of low oxygen saturation where her oxygen level dropped to 75% on room air, and she was to be started on nasal cannula; however, no acute overnight events. SUBJECTIVE: She is feeling fine. She is alert, oriented. She has had bowel movements. She denies any new complaints. We discussed about the risk versus advantages of Bactrim and its possible interaction with digoxin, and we decided to keep her on IV antibiotics for 2 more days, and then probably discharging her home on oral Bactrim. VITAL SIGNS: She has been afebrile. Temperature of 98.1 degrees, pulse 75, respiratory 18, blood pressure 125/48, saturating 97% on room air. PHYSICAL EXAMINATION: General: She does not appear in any acute distress. Oral cavity: Moist. Lungs: Air entry bilaterally equal. No wheeze, rhonchi, or crackles. Cardiovascular: S1, S2 normal. No murmur, rub, or gallop. Abdomen: Soft, nontender. Active bowel sounds. Extremities: She does have multiple wounds affecting bilateral lower extremities. : There is a suprapubic catheter draining clear urine. Neurologic: She is alert and oriented x3. She is a little slow to respond. She is able to move both upper extremities; she is not able to move both lower extremities. She does not have sensations in bilateral feet, though the sensation is intact in bilateral legs. LABS: No CBC or BMP today. MICROBIOLOGY: Urine culture growing Escherichia coli which is sensitive to ceftriaxone, as well as Bactrim. However, Bactrim is the only oral medication she is sensitive to. IMAGING: No new imaging today. ASSESSMENT AND PLAN: 1. Complicated urinary tract infection associated with suprapubic catheter due to Escherichia coli. Change antibiotics to intravenous ceftriaxone. Suprapubic catheter was changed just a week ago. My plan is to change antibiotics to Bactrim on Sunday and let her go home. I will also provide her digoxin level lab slip to be done 3 days after discharge. Bactrim interacts with digoxin and can cause elevated levels, so I decided to keep her for 2 more days to get the intravenous antibiotics in. 2. Acute kidney injury, hematuria, nephrolithiasis, and prior history of nephrolithiasis. She follows up with Urology. Currently, her urine appears clear. Acute kidney injury has resolved after intravenous fluid resuscitation. She would have outpatient Urology follow-up. 3. Acute encephalopathy due to urinary tract infection on presentation has resolved. I will continue sliding scale insulin for history of non insulin-dependent diabetes mellitus; Keppra for history of seizures; oxybutynin for urinary bladder spasms; baclofen and tramadol for muscle spasm and chronic pain; bisacodyl suppositories for fecal impaction; carvedilol and digoxin for history of Takotsubo cardiomyopathy and congestive heart failure; enoxaparin for deep vein thrombosis prophylaxis. DISPOSITION: My plan is to give her IV ceftriaxone for 2 days; that way she would complete about 4 to 5 days of IV antibiotics and then discharge her on oral Bactrim and get a repeat digoxin level done 3 days after discharge. Plan of care discussed with her. Her questions have been answered. She is in agreement. cc: Alberto Beasley MD
[2019-07-26] MEDS: LANOXIN PO SCH (10:17)
[2019-07-26] MEDS: KEPPRA PO SCH ×2 (10:18→20:48)
[2019-07-26] MEDS: LIORESAL PO SCH ×4 (10:18→20:48)
[2019-07-26] MEDS: ROCEPHIN 1 GM in NS 50 ML IV SCH (10:19)
[2019-07-26] MEDS: COREG PO SCH ×2 (10:19→20:48)
[2019-07-26] MEDS: DULCOLAX PR SCH ×2 (10:19→20:48)
[2019-07-26] MEDS: DITROPAN XL PO SCH ×2 (10:57→20:48)
[2019-07-26] MEDS: LOVENOX SUBQ SCH (17:49)
[2019-07-27] MEDS: HUMALOG SUBQ SCH ×4 (06:10→20:53)
[2019-07-27] MEDS: NEXIUM PO SCH (06:11)
[2019-07-27] MEDS: ROCEPHIN 1 GM in NS 50 ML IV SCH (07:49)
--- NOTE | 2019-07-27 09:58 | PROGRESS NOTE ---
DATE: 07/27/2019 INTERVAL HISTORY: No acute events overnight. SUBJECTIVE: She is denying new complaints. She is eating her breakfast. VITAL SIGNS: Temperature 98.6 degrees, pulse 61, respiratory rate 18, blood pressure 160/50, saturating 97% on room air. PHYSICAL EXAMINATION: General: Does not appear in any acute distress. HEENT: Oral cavity is moist. Lungs: Air entry bilaterally equal. No wheeze or crackles. Cardiovascular: S1, S2 normal. No murmur or gallop. Abdomen: Soft, nontender. Active bowel sounds. She has a suprapubic catheter draining clear urine. Extremities: Multiple wounds affecting bilateral lower extremities. Neurologic: She is alert and oriented x3. She is a little slow to respond however he she is able to move both upper extremities spontaneously She is not able to move both lower extremities, though she does not have sensations in bilateral feet. The sensation is intact in bilateral legs. Input and Output: Input and output suggest that she has had 2 bowel movements on she is not listed to have any bowel movements on though. I will discuss with the nurse and start her on MiraLAX. DATA: Microbiology is no new data. ASSESSMENT AND PLAN: 1. Complicated urinary tract infection associated with suprapubic catheter due to Escherichia coli continue intravenous ceftriaxone. Today is day 4 of antibiotics. My plan is to change antibiotics to oral Bactrim tomorrow at the time of discharge and have her follow up digoxin level within 3 days. 2. Acute kidney injury, hematuria, nephrolithiasis, and prior history of nephrolithiasis. She follows up with Urology. Currently, her urine appears clear and her acute kidney injury has resolved after intravenous fluid resuscitation. She would have outpatient Urology follow-up. 3. Acute encephalopathy due to urinary tract infection on presentation now resolved. She is alert and oriented x3. 4. Others continue sliding scale insulin for history of tiu-iohiizh-xeihgunyl diabetes mellitus; Keppra for history of seizure; oxybutynin for bladder spasm; baclofen and tramadol for muscle spasm and chronic pain; bisacodyl suppositories for rectal impaction; carvedilol and digoxin for history of takotsubo cardiomyopathy and congestive heart failure; enoxaparin for DVT prophylaxis. I discussed with her about hip fracture finding and risks associated with it in terms of deep venous thrombosis and discussed with her about having discussion with her regular doctor about chronic need for anticoagulation as appropriate. DISPOSITION: I will monitor patient inside the hospital for today. My goal is to give another dose of IV antibiotics tomorrow and then discharge on oral antibiotics. Plan of care discussed with her. Her questions have been answered. cc: Alberto Beasley MD
[2019-07-27] MEDS: KEPPRA PO SCH ×2 (10:06→20:52)
[2019-07-27] MEDS: DITROPAN XL PO SCH ×2 (10:06→20:52)
[2019-07-27] MEDS: LANOXIN PO SCH (10:07)
[2019-07-27] MEDS: LIORESAL PO SCH ×4 (10:07→20:45)
[2019-07-27] MEDS: DULCOLAX PR SCH ×2 (10:09→20:53)
[2019-07-27] MEDS: COREG PO SCH ×2 (10:09→20:52)
[2019-07-27] MEDS: LOVENOX SUBQ SCH (17:50)
[2019-07-28] MEDS: NEXIUM PO SCH (05:59)
[2019-07-28] MEDS: HUMALOG SUBQ SCH (05:59)
[2019-07-28 08:19] VITALS: BP 179/61
[2019-07-28] MEDS: LANOXIN PO SCH (08:31)
[2019-07-28] MEDS: ROCEPHIN 1 GM in NS 50 ML IV SCH (08:31)
[2019-07-28] MEDS: COREG PO SCH (08:32)
[2019-07-28] MEDS: KEPPRA PO SCH (08:32)
[2019-07-28] MEDS: LIORESAL PO SCH (08:32)
[2019-07-28] MEDS: DULCOLAX PR SCH (08:33)
[2019-07-28] MEDS: DITROPAN XL PO SCH (08:33)
[2019-07-28] MEDS ORDERED: DIFLUCAN PO ONE (08:39)
--- NOTE | 2019-07-29 08:37 | DISCHARGE SUMMARY ---
ADMISSION DATE: 07/23/2019 DISCHARGE DATE: 07/28/2019 DISCHARGE DISPOSITION: Home with mother. DISCHARGE CONDITION: Hemodynamically stable, alert and oriented x3. She has been provided antibiotic prescription as well as serum digoxin. Lab slip to be done 2 to 3 days after taking Bactrim to rule out any interaction. She is also given 1 time fluconazole 150 mg for her vaginal candidiasis. DISCHARGE DIAGNOSES: 1. Acute encephalopathy due to urinary tract infection and intravascular volume depletion. 2. Acute kidney injury. 3. Complicated urinary tract infection associated with suprapubic catheter due to Escherichia coli. 4. Known history of nephrolithiasis with hematuria on presentation now resolved. 5. Bilateral hip joint fracture, likely due to prolonged bed-bound status. She was advised to have a discussion with the regular doctor about need for anticoagulation long-term in future. OTHER DIAGNOSES: 1. History of noninsulin dependent diabetes mellitus. 2. History of seizure. 3. History of bladder spasm. 4. Muscle spasm and chronic pain. 5. Rectal impaction on presentation. 6. History of takotsubo cardiomyopathy and congestive heart failure with ejection fraction of 65% in January 2019. 7. History of essential hypertension. 8. History of multiple sclerosis with bilateral lower extremity paraplegia and bed-bound status. 9. Neurogenic bladder status post suprapubic catheter. DISCHARGE MEDICATIONS: 1. Baclofen 20 mg 4 times a day. 2. Losartan 25 mg daily. 3. Oxybutynin 30 mg daily extended release. 4. Epinephrine 0.3 mg intramuscular autoinjector as needed for allergy and anaphylaxis. 5. Metformin extended release 400 mg, she is listed to be taking 4 times a day. She should have a medication reconciliation with her regular doctor about it. 6. Keppra 500 mg b.i.d. 7. Esomeprazole 40 mg daily. 8. Ondansetron 4 mg every 4 to 6 hours. 9. Bactrim Double Strength 1 tablet b.i.d. 8 tablets have been prescribed. She was advised to get digoxin level done 3 days into the antibiotic course to make sure they are appropriate because of possible interaction. 10. Carvedilol 6.25 mg b.i.d. 11. Bisacodyl 10 mg per rectal b.i.d. goal was 1 to 2 soft formed bowel movements a day. 12. Digoxin 125 mcg daily. 13. Polyvinyl alcohol eye drops 1 drop both eyes 4 times a day. 14. Tramadol 50 mg every 12 hours as needed. VITALS: At the time of discharge temperature of 98.8 degrees, pulse 68, respiratory rate 16, blood pressure 179/61 saturating 95% on room air. PHYSICAL EXAMINATION: She does not appear in any acute distress. HEENT: Oral cavity is moist. Lungs: Air entry bilaterally equal. No wheeze, rhonchi, crackles. Cardiovascular: S1, S2 normal. No murmur, rub, or gallop. Abdomen: Was soft, nontender. Active bowel sounds. Suprapubic catheter draining clear urine. Extremities: Multiple wounds superficial affecting bilateral lower extremities. Dorsalis pedis pulses were intact bilaterally. Neurologic: She is alert oriented x3. She is a little slow to respond. However, she is able to move both upper extremities spontaneously. She is not able to move both lower extremities though she does not have sensations in bilateral feet. Sensation is intact in bilateral legs. SIGNIFICANT LABS: During hospital admission and discharge: Her hemoglobin was 12.6, WBC 6.7, platelet 137,000. Potassium on arrival was 5.7, at time of discharge is 4.9. She did have acute kidney injury with BUN of 38 and creatinine of 1.1 on presentation, which improved to 20 and 0.5 respectively at the time of discharge. Her blood glucose is 257. Her liver function tests largely were not remarkable. Urinalysis had moderate amount of blood, positive for nitrite, too- [id number] RBCs and WBCs. Significant micro during hospital admission: Urine from suprapubic catheter was growing Escherichia coli which was sensitive to ceftriaxone, as well as Bactrim. It was resistant to levofloxacin. Significant imaging during hospital admission: Abdomen pelvis CT on admission had severe constipation with fecal impaction, cholecystectomy, reflux with food in the distal esophagus, fatty infiltration of the liver, nephrolithiasis, small ground-glass infiltrate, hysterectomy. Bones were osteopenic and there were fractures in each femoral neck. Electrocardiogram on presentation, normal sinus rhythm, low voltage QRS. Nonspecific T-wave abnormalities. HOSPITAL COURSE SUMMARY: Ms. Brown is a 58 years old lady who initially presented on 07/24/2019 with chief complaints of altered mental status. She has been in the hospital for multiple urinary tract infections. She does have history of multiple sclerosis and bilateral lower extremity paralysis. However, she has not been on medication since multiple sclerosis had resolved according to her or was in remission. She has had multiple decubitus ulcers in lower extremities and sacrum and in the emergency room she was found to have acute kidney injury and pyuria. She was admitted for further management. On arrival, however, she has started with intravenous fluids. Her mental status has improved and she had become alert and oriented x3. She was resuscitated with intravenous fluids and intravenous antibiotics. Urine culture had grown E. coli which was not sensitive to levofloxacin. There were not too many oral antibiotic options, so she was given intravenous antibiotic for 4 to 5 days inside the hospital and then was discharged on oral Bactrim. 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 More than 30 minutes spent in discharging the patient. All of her questions were answered. cc: Alberto Beasley MD MTDD
== END 2019-07-28 12:06 | disposition home health service (06) | DRG 698 ==
LOC: SUPCPDRO → ED 19:16 → 2N 07-24 06:21 → SUATTDRO 07-24 06:21 → 1N 07-26 13:55
PROVIDERS: ATTEND Internal Medicine